=== PATIENT | female | born 2000 | race Caucasian/White ===

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

== ENCOUNTER 2020-02-25 14:53 | Emergency (ER) | payer SELFPAY ==
[2020-02-25 14:53] VITALS: BP 146/66; PULSE 98; RESP 16; TEMP 36.6; O2SAT 99; BMI 22.5
--- NOTE | 2020-02-25 15:21 | ED.DCSUM_ITS ---
- ER Visit Summary Date of Service: 02/25/20 Chief Complaint: Abdominal pain History of Present Illness: The patient is a 20 F who presents with abdominal pain, nausea, and vomiting that is been constant for the past week. Patient states the pain is over the epigastric and bilateral upper quadrants. Patient describes the pain as cramping and stabbing. Patient states the pain is worse with standing and walking. Patient states she did have one episode of emesis that had a small amount of blood in it but this has resolved. Patient denies any diarrhea, melena, or hematochezia. Patient denies any dysuria or hematuria. Patient states her last menstrual period started on 02/12/2020 and was normal. Patient states the pain does radiate into her low back. Patient denies any fevers but admits to subjective chills. Physical Examination: Vital signs are stable. Patient is afebrile. Patient is in no acute distress. Oral mucosa is pink and moist. Neck is supple. Trachea is midline. There is no JVD noted. Heart was regular rate and rhythm. Lungs are clear and equal bilaterally. Abdomen is soft. Bowel sounds are normal. There is mild upper abdominal tenderness. There is no rebound or guarding noted. Skin is warm dry. Cranial nerves II through XII are intact. There are no focal motor or sensory deficits noted. Extremities are intact. There is no calf tenderness or edema. Test Results: CBC, comprehensive metabolic profile, serum hCG, and urinalysis were obtained and were all essentially within normal limits. Emergency Department Course and Treatment: Patient was given IV fluids and Zofran here. Patient is feeling better on reevaluation. Patient was given prescriptions for Zofran and Prilosec. Patient was instructed to follow-up with her primary care physician in 5 to 7 days. Patient understood and was agreeable with the plan. All questions were answered. Disposition: Discharge home Impression: Abdominal pain This note was generated with [employer] dictation software. It may contain incorrect words, spelling, and punctuation that were not noted in review of the chart prior to signing ED Disposition - Plan for ED Patient: Disposition: Home or Assisted Living Diagnosis: Abdominal pain Instructions: ED Abdominal Pain Unkn Cause Fem Prescriptions: Omeprazole [Prilosec] 20 mg PO DAILY #30 cap Prescription Printed Ondansetron [Zofran Odt] 4 mg PO Q8H PRN PRN #10 tab PRN Reason: Nausea Prescription Printed Referrals: Ervin Clarke, DIRECTOR OF AUTOMATION-C [Primary Care Provider] - 5-7 Days
[2020-02-25] MEDS: 0.9% Normal Saline 1,000 ML 1000 ML IV (15:33)
[2020-02-25] MEDS: Ondansetron 4 MG/2 ML Vial IV (15:36)
[2020-02-25 15:43] LABS: Absolute Neutrophil Count 2.5 X10^3/uL (2.0-7.7); Basophil# 0.02 X10^3/uL; Basophil% 0.5 % (0-1); Eosinophil# 0.06 X10^3/uL; Eosinophils% 1.4 % (0-5); Hematocrit 39.1 % (37-47); Hemoglobin 12.6 g/dL (12.0-15.0); Lymphocyte % 31.3 % (19-41); Mean Corp Hgb Conc 32.2 g/dL (32-36); Mean Corpuscular Hgb 29.1 pg (27.0-32.0); Mean Corpuscular Volume 90.3 fL (81-99); Monocyte# 0.24 X10^3/uL; Monocyte% 5.8 % (0-10); NRBC Flagged by Analyzer 0 % (0-5); Neutrophil # 2.52 X10^3/uL (2.7-7.7); Neutrophil % 60.8 % (47-70); Platelet Count 370 K/mm3 (150-450); RBC Distribution Width CV 11.9 % (11.6-14.6); RBC Distribution Width SD 38.7 fl (35.1-43.9); Red Blood Count 4.33 M/mm3 (4.2-5.4); White Blood Count 4.2 K/mm3 (4.4-11.0)
[2020-02-25 16:10] LABS: ALB/GLOB Ratio 1.2 RATIO (0.9-2.4); AST(SGOT) 13 U/L (15-37); Alanine Aminotransfer ALT/SGPT 18 U/L (13-56); Albumin, Serum 4.2 g/dL (3.2-5.0); Alkaline Phosphatase 51 U/L (45-117); Anion Gap 5 (5-15); BUN 7 mg/dL (7-18); BUN/Creat Ratio 8.7 RATIO (10-20); Calcium,Total 9.2 mg/dL (8.5-10.1); Chloride 111 mmol/L (98-107); Creatinine, Serum 0.81 mg/dL (0.55-1.02); EST Glomerular Filtration Rate 95 mL/min (>60); Est Glom Filt Rate - Afr Amer 115 mL/min (>60); Estimated Creatinine Clearance 98.86 ml/min; Globulin 3.4 g/dL (2.2-4.2); Glucose 94 mg/dL (74-106); Lipase 43 U/L (73-393); Potassium 3.9 mmol/L (3.5-5.1); Protein, Total 7.6 g/dL (6.4-8.2); Sodium Level 143 mmol/L (136-145)
[2020-02-25 16:17] LABS: Internal QC Validated? YES +Cl - CLEAR BKGD; Pregnancy, Serum, hCG Quali. NEGATIVE Negative
[2020-02-25 16:24] LABS: Bacteria 0 SEEN /hpf (None Seen); Mucous, Urine 0 SEEN /hpf (<or=2+); Red Blood Cells-Urine 0 SEEN /hpf (0-5)
[2020-02-25 16:31] LABS: Color, Urine Yellow (Yellow); Glucose, Dipstick Normal (Normal); Ketone-Dipstick Negative (Negative); Leukocyte Esterase-Dipstick 500 /ul (Negative); Nitrite-Dipstick Negative (Negative); Occult Blood-Urine Negative /ul (Negative); Protein-Dipstick Negative (Negative); Specific Gravity, Urine 1.015 (1.002-1.030); Urine Bilirubin Dipstick Negative (Negative); Urine Clarity Clear (Clear); Urine Urobilinogen Normal (Normal)
[2020-02-25 16:41] LABS: Squamous Epithelial Cells - UA 0-5 SEEN /hpf (5-10); White Blood Cells 0-5 SEEN /hpf (0-5)
== END 2020-02-25 18:18 | disposition home or self-care (01) ==
PROVIDERS: Emergency Provider Emergency Medicine; PCP Nurse Practitioner Family
DX: R10.10 Upper abdominal pain, unspecified (principal)
CPT/HCPCS: 80053; 81001; 83690; 84703; 85025; 96361; 96374; 99283; J7030; A4216; J2405

== ENCOUNTER 2020-07-06 10:46 | Emergency (ER) | payer SELFPAY ==
[2020-07-06 10:47] VITALS: BP 122/70; PULSE 122; RESP 16; TEMP 36.2; O2SAT 99; BMI 21.6
--- NOTE | 2020-07-06 11:10 | EKG12_ITS ---
Test Reason : Blood Pressure : / mmHG Vent. Rate : 078 BPM Atrial Rate : 078 BPM P-R Int : 196 ms QRS Dur : 088 ms QT Int : 378 ms P-R-T Axes : 020 026 020 degrees QTc Int : 430 ms Normal sinus rhythm Normal ECG Confirmed by MAUREEN CASTILLO, YRIS ([id number]), newspaper or periodical editor MARISSA ANN ([id number]) on 07/08/2020 1:05:30 PM Referred By: Confirmed By:YRIS REDDY MD
--- NOTE | 2020-07-06 11:12 | ED.VIS.GEN ---
History of Present Illness Chief Complaint: Shortness of Breath Informant: Patient Narrative: Patient states that she woke up yesterday morning with nasal congestion and slight sore throat. Last night while lying in bed she states she felt short of breath and was taking small short breaths. She denies any cough. She denies any fever. No diarrhea or rashes. She states that when she woke this morning her left arm and leg were tingling. She was worried she was having a heart attack. Non-smoker. No DVT PE risk factors. She denies any chest pain. Noted triage heart rate of 122 however during my examination on the monitor she is 80s. Past Medical History - Allergies and Home Meds Allergies/Adverse Reactions: Allergies No Known Allergies Allergy (Verified 07/06/20 10:46) Primary Care Physician: Ervin Clarke NP, [employer] TENDER[employer] [Primary Care Provider] - Past Medical History: None Surgical History: noncontributory Smoking Status: Never smoker Drugs: None Review of Systems General: Denies: Chills, Fever, Sweats Eyes: Denies: Visual changes - bilaterally, Diplopia ENT: Reports: Rhinorrhea, Sore throat Cardiovascular: Denies: Chest pain, Palpitations Respiratory: Reports: Dyspnea. Denies: Cough, Dyspnea on exertion Gastrointestinal: Denies: Abdominal pain, Nausea, Vomiting, Diarrhea, Melena, Hematochezia Genitourinary: Denies: Dysuria, Hematuria, Frequency Musculoskeletal: Denies: Back pain, Extremity Pain Skin: Denies: Rash, Wounds Neurological: Reports: Parasthesia. Denies: Headache, Weakness, Numbness Physical Exam Vital Signs/Narrative: Vital Signs Temp Pulse Resp BP Pulse Ox 07/06/20 10:47 97.1 F L 122 H 16 122/70 H 99 Inital Vital Signs reviewed: Yes General: Well nourished, Well developed, No Acute Distress Head: Normocephalic, Atraumatic Eyes: Perrl, EOMI ENT: Moist mucous membranes, No rhinorrhea Neck: Supple, Nontender Cardiovascular: Regular rate, Regular rhythm, No murmurs Respiratory: No distress, CTA bilaterally, Chest nontender, - - Patient is in no acute distress. She takes a small volume breath. Abdomen: Soft, Nontender, Nondistended, Normal bowel sounds Back: Nontender, Normal Inspection Extremities: Nontender, No edema Skin: Normal color, No rash Neurological: Alert, Oriented x3, Cranial nerves II-XII grossly intact, Normal Strength, Normal Sensation Psychological: Normal affect, Normal Mood Diagnostic/Tx/Re-eval Clinical Impression(s) from Imaging Studies Chest X-Ray 07/06/20 11:20 IMPRESSION: The lungs are clear. Electronically Signed: Norbert Rojas, at 11:52 EDT , Service support , Laboratory Last Values WBC 7.9 K/mm3 (4.4-11.0) 07/06/20 11:20 RBC 4.62 M/mm3 (4.2-5.4) 07/06/20 11:20 Hgb 13.8 g/dL (12.0-15.0) 07/06/20 11:20 Hct 41.7 % (37-47) 07/06/20 11:20 MCV 90.3 fL (81-99) 07/06/20 11:20 MCH 29.9 pg (27.0-32.0) 07/06/20 11:20 MCHC 33.1 g/dL (32-36) 07/06/20 11:20 RDW Std Deviation 41.2 fl (35.1-43.9) 07/06/20 11:20 RDW Coeff of Juan 12.5 % (11.6-14.6) 07/06/20 11:20 Plt Count 340 K/mm3 (150-450) 07/06/20 11:20 MPV 9.1 fl (6.2-12.0) 07/06/20 11:20 Immature Gran % (Auto) 0.400 % (0.0-0.9) 07/06/20 11:20 Neut % (Auto) 82.0 % (47-70) H 07/06/20 11:20 Lymph % (Auto) 11.3 % (19-41) L 07/06/20 11:20 Casey % (Auto) 5.7 % (0-10) 07/06/20 11:20 Eos % (Auto) 0.3 % (0-5) 07/06/20 11:20 Baso % (Auto) 0.3 % (0-1) 07/06/20 11:20 Absolute Neuts (auto) 6.5 X10^3/uL (2.0-7.7) 07/06/20 11:20 Absolute Lymphs (auto) 0.89 X10^3/uL (0.83-4.51) 07/06/20 11:20 Nucleated RBC % 0 % (0-5) 07/06/20 11:20 D-Dimer Quant (PE/DVT) 0.28 FEU/ug/m (0.27-0.49) 07/06/20 11:20 Sodium 141 mmol/L (136-145) 07/06/20 11:20 Potassium 4.0 mmol/L (3.5-5.1) 07/06/20 11:20 Chloride 110 mmol/L (98-107) H 07/06/20 11:20 Carbon Dioxide 25.0 mmol/L (21.0-32.0) 07/06/20 11:20 Anion Gap 6 (5-15) 07/06/20 11:20 BUN 7 mg/dL (7-18) 07/06/20 11:20 Creatinine 0.95 mg/dL (0.55-1.02) 07/06/20 11:20 Estim Creat Clear Calc 84.29 ml/min 07/06/20 11:20 Est GFR (MDRD) Af Amer 96 mL/min (>60) 07/06/20 11:20 Est GFR (MDRD) Non-Af 79 mL/min (>60) 07/06/20 11:20 BUN/Creatinine Ratio 7.4 RATIO (10-20) L 07/06/20 11:20 Glucose 95 mg/dL (74-106) 07/06/20 11:20 Calcium 9.4 mg/dL (8.5-10.1) 07/06/20 11:20 Total Bilirubin 0.70 mg/dL (0.20-1.00) 07/06/20 11:20 AST 16 U/L (15-37) 07/06/20 11:20 ALT 18 U/L (13-56) 07/06/20 11:20 Alkaline Phosphatase 57 U/L (45-117) 07/06/20 11:20 Troponin I < 0.015 ng/mL (<0.045) 07/06/20 11:20 Total Protein 7.8 g/dL (6.4-8.2) 07/06/20 11:20 Albumin 4.2 g/dL (3.2-5.0) 07/06/20 11:20 Globulin 3.6 g/dL (2.2-4.2) 07/06/20 11:20 Albumin/Globulin Ratio 1.2 RATIO (0.9-2.4) 07/06/20 11:20 Serum , Qual NEGATIVE Negative 07/06/20 11:20 - EKG Initial EKG Interpretation: Sinus Rhythm - EKG demonstrates a normal sinus rhythm at a rate of 78 without ectopy. - Medical Decision Making Patient's basic blood work is negative. COVID will be pending. At this point her vital signs are stable. She is able to sleep on my repeat examination. I will write for the patient to have an inhaler to see if that will help her. 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 Return if worsening or concerns ED Disposition - Plan for ED Patient: Disposition: Home or Assisted Living Diagnosis: URI (upper respiratory infection), Dyspnea Instructions: ED URI Viral, ED Dyspnea Prescriptions: Albuterol Inhaler [Ventolin Hfa] 2 puff INHALATION Q4H PRN PRN #1 inhaler PRN Reason: Wheezing Prescription Printed Referrals: Ervin Clarke NP, [employer] TENDER[employer] [Primary Care Provider] - 1 Week if not improving
--- NOTE | 2020-07-06 11:20 | RAD_ITS ---
STUDY: X-RAY CHEST REASON FOR EXAM: Female, 20 years old. Shortness of breath TECHNIQUE: Single AP portable view of the chest. COMPARISON: None. FINDINGS: EKG electrodes are seen. The lungs are clear and expanded. There is no demonstrated pleural abnormality. Normal size heart. Normal mediastinum and kranthi. Normal visualized pulmonary arteries. Normal visualized aortic arch and descending thoracic aorta. There is a dextroscoliosis of the thoracic spine. Normal visualized ribs, clavicles, and shoulders. There is no demonstrated abnormality of the visualized soft tissue structures of the upper abdomen. RAD/Chest 1 View (Portable) IMPRESSION: The lungs are clear. Electronically Signed: Norbert Rojas, at 11:52 EDT , Service support ,
[2020-07-06 11:29] LABS: Absolute Lymphocyte Count 0.89 X10^3/uL (0.83-4.51); Absolute Neutrophil Count 6.5 X10^3/uL (2.0-7.7); Basophil# 0.02 X10^3/uL; Basophil% 0.3 % (0-1); Eosinophil# 0.02 X10^3/uL; Eosinophils% 0.3 % (0-5); Hematocrit 41.7 % (37-47); Hemoglobin 13.8 g/dL (12.0-15.0); Lymphocyte # 0.89 X10^3/ul (4.0); Lymphocyte % 11.3 % (19-41); Mean Corp Hgb Conc 33.1 g/dL (32-36); Mean Corpuscular Hgb 29.9 pg (27.0-32.0); Mean Corpuscular Volume 90.3 fL (81-99); Mean Platelet Vol. 9.1 fl (6.2-12.0); Monocyte# 0.45 X10^3/uL; Monocyte% 5.7 % (0-10); NRBC Flagged by Analyzer 0 % (0-5); Neutrophil # 6.45 X10^3/uL (2.7-7.7); Platelet Count 340 K/mm3 (150-450); RBC Distribution Width CV 12.5 % (11.6-14.6); RBC Distribution Width SD 41.2 fl (35.1-43.9); Red Blood Count 4.62 M/mm3 (4.2-5.4); White Blood Count 7.9 K/mm3 (4.4-11.0)
--- NOTE | 2020-07-06 11:34 | NURSING ---
NO OLD EKGS
[2020-07-06 11:41] LABS: Internal QC Validated? YES +Cl - CLEAR BKGD; Pregnancy, Serum, hCG Quali. NEGATIVE Negative
[2020-07-06 11:45] VITALS: BP 103/51; PULSE 71; RESP 16; O2SAT 100
[2020-07-06 11:51] LABS: ALB/GLOB Ratio 1.2 RATIO (0.9-2.4); AST(SGOT) 16 U/L (15-37); Alanine Aminotransfer ALT/SGPT 18 U/L (13-56); Albumin, Serum 4.2 g/dL (3.2-5.0); Alkaline Phosphatase 57 U/L (45-117); Anion Gap 6 (5-15); BUN 7 mg/dL (7-18); BUN/Creat Ratio 7.4 RATIO (10-20); Calcium,Total 9.4 mg/dL (8.5-10.1); Chloride 110 mmol/L (98-107); Creatinine, Serum 0.95 mg/dL (0.55-1.02); EST Glomerular Filtration Rate 79 mL/min (>60); Est Glom Filt Rate - Afr Amer 96 mL/min (>60); Estimated Creatinine Clearance 84.29 ml/min; Globulin 3.6 g/dL (2.2-4.2); Glucose 95 mg/dL (74-106); Protein, Total 7.8 g/dL (6.4-8.2); Sodium Level 141 mmol/L (136-145)
[2020-07-06 12:02] LABS: D-Dimer Quantitative (DVT/PE) 0.28 FEU/ug/m (0.27-0.49)
[2020-07-06 12:42] VITALS: BP 100/71; PULSE 84; RESP 14; O2SAT 98
== END 2020-07-06 13:00 | disposition home or self-care (01) ==
PROVIDERS: Emergency Provider Emergency Medicine; PCP Nurse Practitioner Family
DX: J06.9 Acute upper respiratory infection, unspecified (principal); R06.00 Dyspnea, unspecified
CPT/HCPCS: 71045; 80053; 84484; 84703; 85025; 85379; 87635; 93005; 99284; U0003

== ENCOUNTER 2021-02-03 09:36 | Emergency (ER) | payer OTHER, MEDICAID, SELFPAY ==
[2021-02-03 09:37] VITALS: BP 107/58; PULSE 85; RESP 16; TEMP 36.1; O2SAT 98; BMI 20.6
[2021-02-03] MEDS: Ondansetron 4 MG/2 ML Vial IV (10:04)
[2021-02-03] MEDS: 0.9% Normal Saline 1,000 ML 1000 ML IV (10:04)
[2021-02-03 10:23] LABS: Absolute Lymphocyte Count 1.21 X10^3/uL (0.83-4.51); Absolute Neutrophil Count 4.7 X10^3/uL (2.0-7.7); Basophil# 0.01 X10^3/uL; Basophil% 0.2 % (0-1); Hematocrit 39.5 % (37-47); Hemoglobin 13.4 g/dL (12.0-15.0); Lymphocyte # 1.21 X10^3/ul (0.83-4.51); Lymphocyte % 19.3 % (19-41); Mean Corp Hgb Conc 33.9 g/dL (32-36); Mean Corpuscular Volume 91.4 fL (81-99); Mean Platelet Vol. 9.3 fl (6.2-12.0); Monocyte# 0.32 X10^3/uL; Monocyte% 5.1 % (0-10); NRBC Flagged by Analyzer 0 % (0-5); Neutrophil # 4.72 X10^3/uL (2.7-7.7); Neutrophil % 75.2 % (47-70); Platelet Count 335 K/mm3 (150-450); RBC Distribution Width CV 11.4 % (11.6-14.6); RBC Distribution Width SD 38.4 fl (35.1-43.9); Red Blood Count 4.32 M/mm3 (4.2-5.4); White Blood Count 6.3 K/mm3 (4.4-11.0)
[2021-02-03 10:39] LABS: ALB/GLOB Ratio 1.2 RATIO (0.9-2.4); AST(SGOT) 13 U/L (15-37); Alanine Aminotransfer ALT/SGPT 22 U/L (13-56); Albumin, Serum 4.4 g/dL (3.2-5.0); Alkaline Phosphatase 45 U/L (45-117); Anion Gap 10 (5-15); BUN 16 mg/dL (7-18); BUN/Creat Ratio 18.6 RATIO (10-20); Chloride 103 mmol/L (98-107); Creatinine, Serum 0.86 mg/dL (0.55-1.02); EST Glomerular Filtration Rate 88 mL/min (>60); Est Glom Filt Rate - Afr Amer 106 mL/min (>60); Estimated Creatinine Clearance 91.88 ml/min; Globulin 3.6 g/dL (2.2-4.2); Glucose 76 mg/dL (74-106); Potassium 3.8 mmol/L (3.5-5.1); Sodium Level 135 mmol/L (136-145)
[2021-02-03 10:54] LABS: Red Blood Cells-Urine 0 SEEN /hpf (0-5)
[2021-02-03 10:59] LABS: Color, Urine Yellow (Yellow); Glucose, Dipstick Normal (Normal); Leukocyte Esterase-Dipstick 100 /ul (Negative); Nitrite-Dipstick Negative (Negative); Occult Blood-Urine Negative /ul (Negative); Protein-Dipstick 15 mg/dl (Negative); Specific Gravity, Urine 1.025 (1.002-1.030); Urine Bilirubin Dipstick Negative (Negative); Urine Clarity Sl. Cloudy (Clear); Urine Urobilinogen Normal (Normal)
[2021-02-03 11:01] LABS: Ketone-Dipstick 150 mg/dl (Negative)
[2021-02-03 11:06] LABS: Bacteria 1+ /hpf (None Seen); Mucous, Urine 1+ /hpf (<or=2+); Squamous Epithelial Cells - UA 0-5 SEEN /hpf (5-10); White Blood Cells 10-25 SEEN /hpf (0-5)
[2021-02-03] MEDS: 0.9% Normal Saline 1,000 ML 999 ML IV (11:18)
--- NOTE | 2021-02-03 11:47 | ED.DCSUM_ITS ---
- ER Visit Summary Date of Service: 02/03/21 Chief Complaint: Nausea and vomiting History of Present Illness: The patient is a [address] Keita. She is a G1, P0 at 9 weeks by ultrasound. She reports that she has had problems with nausea intermittently since 5 weeks along. However, its been much worse over the past 2 days. She reports she is vomited 8-9 times. No blood in her emesis. She denies any diarrhea. Her last bowel was 3 days ago. Typically she goes daily. She is not on iron based vitamins. She denies any blood in her stools or black tarry stools. Patient denies any abdominal pain. She reports has had frequent urination for the past 2 days. No dysuria. She denies any vaginal bleeding or discharge. Physical Examination: Vitals: Stable. Afebrile. General: Well-nourished and well-developed. Head: Normocephalic atraumatic. Neck: Supple, no lymphadenopathy. No JVD. Nontender. Cardiovascular: Regular rate and rhythm. No murmurs. Respiratory: No respiratory distress. Clear to auscultation bilaterally. Abdominal: Soft, nontender, nondistended, normal bowel sounds. No guarding, rebound, or peritoneal signs. Gravid uterus. Back: Nontender. Extremities: Nontender, no edema. Skin: Normal color, no rash. Neurologic: Alert and oriented ?3. Cranial nerves II through XII are intact. Normal strength and sensation. Psych: Normal affect. Test Results: CBC is remarkable for segs neutrophils 75. Chem-7 shows a sodium 135. LFTs show an AST of 13. UA shows 10-25 white blood cells with 1+ bacteria. Emergency Department Course and Treatment: Patient had an IV placed. She was given 2 L of normal saline. She was given Zofran IV with significant relief. She has not vomited while here. Her urine was sent for culture and she was given a dose of Rocephin IV. heart tones were 160s. Treatment Plan: Patient be discharged on Keflex and Zofran. Instructed to follow-up with Dr. Keita in 2 days to get the results of her urine culture. Return to the emergency department for any worsening symptoms. Disposition: To home in improved and stable condition. Impression: 1. First trimester . 2. Vomiting. 3. UTI. This note was generated with [employer] dictation software. It may contain incorrect words, spelling, and punctuation that were not noted in review of the chart prio r to signing ED Disposition - Plan for ED Patient: Disposition: Home or Assisted Living Instructions: ED Hyperemesis Gravidarum, ED Urinary Tract Infections in Women Prescriptions: Cephalexin [Keflex] 500 mg PO Q12 #14 capsule Prescription Printed Ondansetron [Zofran Odt] 4 mg PO Q8H PRN PRN #30 tablet PRN Reason: Nausea Prescription Printed Referrals: Dannielle Keita DO [STAFF PHYSICIAN] - 3-5 Days
[2021-02-03] MEDS: Ceftriaxone 1 GM/50 ML BAG IV (12:08)
[2021-02-03 12:09] VITALS: BP 105/59; PULSE 73; RESP 16; O2SAT 100
== END 2021-02-03 12:21 | disposition home or self-care (01) ==
PROVIDERS: Emergency Provider Emergency Medicine; PCP Nurse Practitioner Family
DX: O23.41 Unspecified infection of urinary tract in pregnancy, first trimester (principal); O21.9 Vomiting of pregnancy, unspecified; Z3A.09 9 weeks gestation of pregnancy
CPT/HCPCS: 80053; 81001; 85025; 87086; 87088; 96361; 96374; 99283; J7030; J7050; A4216; J2405

== ENCOUNTER 2021-07-13 10:51 | Emergency (ER) | payer MEDICAID, SELFPAY ==
[2021-07-13 10:52] VITALS: BP 140/90; PULSE 79; RESP 16; TEMP 36.1; O2SAT 98; BMI 26.2
--- NOTE | 2021-07-13 11:12 | CT_ITS ---
STUDY: CT ABDOMEN AND PELVIS WITH CONTRAST REASON FOR EXAM: Female, 21 years old. RLQ abd pain -- IV PO Contrast. The patient is 32 weeks . RADIATION DOSAGE (If Supplied By Facility): CTDIvol = ( 14.70 ) mGy, DLP = ( 796.77 ) mGycm TECHNIQUE: Transaxial images were obtained from the dome of the diaphragm to the symphysis pubis without oral contrast. Oral and IV Gastrografin and 100mL Isovue-370 was administered. Sagittal and coronal images were reconstructed. Individualized dose optimization techniques were used for this CT. COMPARISON: None. FINDINGS: The visualized lung bases are unremarkable. The visualized portions of the heart are within normal limits. Normal liver. Normal gallbladder and extrahepatic biliary system. Normal spleen. Normal pancreas. Normal bilateral adrenal glands. Mild degree of right hydronephrosis and right hydroureter. No obstructive calculus is seen. Normal left kidney. Normal visualized stomach. Normal small intestine. Normal colon. The appendix is visualized and appears normal. Normal abdominal aorta. Normal inferior vena cava. Normal retroperitoneum. Normal urinary bladder. Normal abdominal wall. Normal osseous structures. CT/Abdomen/Pelvis WITH Contrast IMPRESSION: Mild degree of right hydronephrosis and right hydroureter. Electronically Signed: Norbert Rojas MD at 13:26 EDT , Service support ,
--- NOTE | 2021-07-13 11:12 | ED.VIS.GI ---
HPI HPI - GI History of Present Illness Chief Complaint: Abd Pain Detail of Chief Complaint: Abdominal pain that started this morning Informant: patient Abdominal Pain/Flank Pain Current Severity: 4/10 Nausea/Vomiting/Emesis GI Symptom: Positive for Nausea Narrative Narrative: Patient presents with abdominal pain to the right lower quadrant that started this morning when she woke up. Patient states that initially she had pain in her right lower back last evening. She was seen by her PROGRAMMER ANALYST CONSULTANT this morning and the evaluated the baby as she is 32 weeks . Patient also had a dip urine apparently that was unremarkable. Patient denies urinary symptoms. She denies fevers. She has had some nausea. She had decreased p.o. intake and really does not feel hungry. Pain is worse with certain movements. There was concern about appendicitis and her PROGRAMMER ANALYST CONSULTANT referred her to the emergency department to get a scan of her abdomen and pelvis. Prior similar symptoms: No PFSH PFSH Medical History no medical history Home Medications NK 07/13/21 [History Last Taken Unknown] Allergy/AdvReac Type Severity Reaction Status Date / Time oseltamivir [From Tamiflu] Allergy Swelling Verified 02/03/21 09:37 Surgical History no surgical history Social History Smoking Status: Former smoker ROS ROS ED Constitutional Constitutional ED: Reports systems reviewed and no addt'l complaints, except as documented; Denies body ache(s), change in weight or chills Eyes Eyes: Denies acute decrease in peripheral vision, change in vision, double vision or loss of vision ENT ENT ED: Reports none; Denies ear pain, lip swelling, loss taste/smell, neck pain, otalgia or sore throat Cardiovascular Cardiovascular: Reports none; Denies abdominal pain, chest pain with activity, leg edema, lightheadedness, palpitations, rapid heart rate or syncope Respiratory/Chest Respiratory/Chest: Reports none; Denies change in mental status, dry cough, dyspnea, hemoptysis, shortness of breath at rest or shortness of breath with exertion Gastrointestinal Gastrointestinal: Reports none, abdominal pain and nausea; Denies change in stool character, diarrhea, hematemesis, hematochezia, melena, rectal bleeding or vomiting Genitourinary Genitourinary ED: Reports none; Denies abdominal discomfort, anuria, dysuria, genital pain or polyuria Musculoskeletal Musculoskeletal: Reports none; Denies arthralgias, back pain, difficulty walking, extremity pain, muscle weakness or myalgias Integumentary Reports none; Denies abscess or rash Neurologic Neurologic: Reports none; Denies abnormal gait, confusion, focal weakness, frequent falls, headache(s), loss of vision, numbness, paresthesias, radicular pain, vertigo or weakness Psychiatric Psychiatric: Reports systems reviewed and no addt'l complaints, except as documented and none; Denies behavioral changes, confusion, difficulty concentrating, hallucinations, suicidal ideation, tactile hallucinations or visual hallucinations Endocrine Endocrinology: Denies none, cold intolerance, excessive sweating, fatigue or heat intolerance Hematologic/Lymphatic Hematologic/Lymphatic: Reports none; Denies anemia, easy bleeding or easy bruising Allergic/Immunologic Allergic/Immunologic ED: Denies as per HPI, none, lip swelling, mouth swelling, throat swelling, tongue swelling or hives EXAM Physical Exam Const Vital Signs: 07/13/21 10:52 Temperature 96.9 F L Temperature Source Temporal Pulse Rate 79 Respiratory Rate 16 Blood Pressure 140/90 H Blood Pressure Mean 106 Pulse Ox 98 Oxygen Delivery Method Room Air Positive well nourished and well developed General Appearance ED: well developed and NAD HEENT Reports TM's clear and moist mucous membranes normocephalic and atraumatic; Negative for trauma or tenderness Tympanic Membrane ED: Yes TM's clear Eyes PERRL and EOMs intact bilaterally General Eye ED: Negative for pale conjunctiva or scleral icterus Neck no lymphadenopathy, supple and no JVD General: Negative for tenderness Chest Wall inspection of chest normal and palpation of chest normal Chest: Negative for tenderness Resp normal respiratory effort and clear to auscultation bilaterally Effort and Inspection: Negative for respiratory distress or pain with movement Auscultation: Negative for rhonchi, wheezes or diminished lung sounds Cardio regular rate, regular rhythm, S1 normal heart sound, S2 normal heart sound and no murmurs Peripheral Pulses: pulses 2+ throughout GI normal to inspection, nondistended, normoactive bowel sounds, soft to palpation, non-distended and no masses GI Narrative: Patient has a gravid uterus. Patient tender over the right lower quadrant with some guarding. There is no rebound, rigidity, or peritoneal signs. Palpation: soft Back/Spine no CVA tenderness and no thoracic nor lumbar tenderness Extremity normal to inspection General Extremety ED: Negative for edema General Extremity: Negative for edema Neuro oriented x3, CN's II-XII intact bilaterally, no sensory deficits noted and gait normal Sensorium / Orientation: awake, alert, oriented to person, oriented to place and oriented to time Motor Exam: strength 5/5 throughout and strength abnormal Psych mental status grossly normal Skin no rashes or lesions noted and no wounds MDM MDM MDM Narrative Medical decision making narrative: IV line established on arrival. Patient did not want anything for pain. Work-up in the emergency department was unremarkable. CT showed normal appendix and just some mild hydroureter and hydronephrosis which I suspect may be physiologic related to gravid uterus. Case discussed with patient's PROGRAMMER ANALYST CONSULTANT and patient will be discharged to home in stable condition. She is advised to return if worsening pain, fever, vomiting, vaginal bleeding, or condition should worsen anyway. Lab Data Attestation: I reviewed the patient's lab results. Labs: Laboratory Results - last 24 hr 07/13/21 07/13/21 07/13/21 11:25 11:35 11:35 WBC 7.2 RBC 3.53 L Hgb 10.6 L Hct 31.9 L MCV 90.4 MCH 30.0 MCHC 33.2 RDW Std Deviation 38.2 RDW Coeff of Juan 11.7 Plt Count 226 MPV 9.7 Immature Gran % (Auto) 0.600 Neut % (Auto) 71.7 H Lymph % (Auto) 20.6 [place] % (Auto) 6.1 Eos % (Auto) 0.7 Baso % (Auto) 0.3 Absolute Neuts (auto) 5.2 Absolute Lymphs (auto) 1.48 Nucleated RBC % 0 Sodium 140 Potassium 3.8 Chloride 109 H Carbon Dioxide 23.0 Anion Gap 8 BUN 4 L Creatinine 0.48 L Estim Creat Clear Calc 165.43 Est GFR (MDRD) Af Amer 209 Est GFR (MDRD) Non-Af 173 BUN/Creatinine Ratio 8.4 L Glucose 76 Calcium 8.1 L Total Bilirubin 0.30 AST 16 ALT 21 Alkaline Phosphatase 91 Total Protein 6.3 L Albumin 2.5 L Globulin 3.8 Albumin/Globulin Ratio 0.7 L Urine Color Yellow Urine Clarity Sl. Cloudy Urine pH 8.0 Ur Specific Pearl 1.010 Urine Protein Negative Urine Glucose (UA) Normal Urine Ketones Negative Urine Occult Blood Negative Urine Nitrite Negative Urine Bilirubin Negative Urine Urobilinogen Normal Ur Leukocyte Esterase Negative Urine RBC 0 SEEN Urine WBC 0 SEEN Ur Squamous Epith Cells 0-5 SEEN Urine Bacteria 1+ Urine Mucus 0 SEEN Radiography Diagnostic Testing: Radiology Impression Abdomen/Pelvis CT 07/13/21 11:12 IMPRESSION: Mild degree of right hydronephrosis and right hydroureter. Electronically Signed: Norbert Rojas MD at 13:26 EDT , Service support , Discharge Plan Triage Chief Complaint: Abd Pain ED Provider: Marlys Granado Dx/Rx/DC Orders Clinical Impression: Abdominal pain Instructions: ED Abdominal Pain Unkn Cause Fem Prescriptions: No Action NK RF: 0 Primary Care Provider: Ervin Clarke NP Referrals: Brandie Farris MD [STAFF PHYSICIAN] - 3-5 Days Ervin Clarke NP, [facility] [Primary Care Provider] - Disposition Disposition: Home, Self Care
[2021-07-13] MEDS: 0.9% Normal Saline 1,000 ML 125 ML IV (11:32)
[2021-07-13 11:42] LABS: Mucous, Urine 0 SEEN /hpf (<or=2+); Red Blood Cells-Urine 0 SEEN /hpf (0-5); White Blood Cells 0 SEEN /hpf (0-5)
[2021-07-13 11:44] LABS: Absolute Lymphocyte Count 1.48 X10^3/uL (0.83-4.51); Absolute Neutrophil Count 5.2 X10^3/uL (2.0-7.7); Basophil# 0.02 X10^3/uL; Basophil% 0.3 % (0-1); Eosinophil# 0.05 X10^3/uL; Eosinophils% 0.7 % (0-5); Hematocrit 31.9 % (37-47); Hemoglobin 10.6 g/dL (12.0-15.0); Lymphocyte # 1.48 X10^3/ul (0.83-4.51); Lymphocyte % 20.6 % (19-41); Mean Corp Hgb Conc 33.2 g/dL (32-36); Mean Corpuscular Volume 90.4 fL (81-99); Mean Platelet Vol. 9.7 fl (6.2-12.0); Monocyte# 0.44 X10^3/uL; Monocyte% 6.1 % (0-10); NRBC Flagged by Analyzer 0 % (0-5); Neutrophil # 5.17 X10^3/uL (2.7-7.7); Neutrophil % 71.7 % (47-70); Platelet Count 226 K/mm3 (150-450); RBC Distribution Width CV 11.7 % (11.6-14.6); RBC Distribution Width SD 38.2 fl (35.1-43.9); Red Blood Count 3.53 M/mm3 (4.2-5.4); White Blood Count 7.2 K/mm3 (4.4-11.0)
[2021-07-13 11:44] LABS: Color, Urine Yellow (Yellow); Glucose, Dipstick Normal (Normal); Ketone-Dipstick Negative (Negative); Leukocyte Esterase-Dipstick Negative /ul (Negative); Nitrite-Dipstick Negative (Negative); Occult Blood-Urine Negative /ul (Negative); Protein-Dipstick Negative (Negative); Urine Bilirubin Dipstick Negative (Negative); Urine Clarity Sl. Cloudy (Clear); Urine Urobilinogen Normal (Normal)
[2021-07-13 11:51] LABS: Bacteria 1+ /hpf (None Seen); Squamous Epithelial Cells - UA 0-5 SEEN /hpf (5-10)
[2021-07-13] MEDS: Ondansetron 4 MG/2 ML Vial IV (12:00)
[2021-07-13 12:03] LABS: ALB/GLOB Ratio 0.7 RATIO (0.9-2.4); AST(SGOT) 16 U/L (15-37); Alanine Aminotransfer ALT/SGPT 21 U/L (13-56); Albumin, Serum 2.5 g/dL (3.2-5.0); Alkaline Phosphatase 91 U/L (45-117); Anion Gap 8 (5-15); BUN 4 mg/dL (7-18); BUN/Creat Ratio 8.4 RATIO (10-20); Calcium,Total 8.1 mg/dL (8.5-10.1); Chloride 109 mmol/L (98-107); Creatinine, Serum 0.48 mg/dL (0.55-1.02); EST Glomerular Filtration Rate 173 mL/min (>60); Est Glom Filt Rate - Afr Amer 209 mL/min (>60); Estimated Creatinine Clearance 165.43 ml/min; Globulin 3.8 g/dL (2.2-4.2); Glucose 76 mg/dL (74-106); Potassium 3.8 mmol/L (3.5-5.1); Protein, Total 6.3 g/dL (6.4-8.2); Sodium Level 140 mmol/L (136-145)
[2021-07-13 13:50] VITALS: BP 98/63; PULSE 77; RESP 16; TEMP 37.2; O2SAT 99
== END 2021-07-13 13:57 | disposition home or self-care (01) ==
PROVIDERS: Emergency Provider Emergency Medicine; PCP Nurse Practitioner Family
DX: O26.893 Other specified pregnancy related conditions, third trimester (principal); R10.31 Right lower quadrant pain; Z3A.32 32 weeks gestation of pregnancy; Z87.891 Personal history of nicotine dependence
CPT/HCPCS: 74177; 80053; 81001; 85025; 96361; 96374; 99283; J7030; Q9967; A4216; J2405

== ENCOUNTER 2021-09-03 19:30 | Inpatient (IN) | payer MEDICAID, SELFPAY ==
[2021-09-03] VITALS (40 sets, daily range): BP systolic 96–129; BP diastolic 53–86; PULSE 53–106; TEMP 36.1–36.8; O2SAT 90–100; BMI 27.4
[2021-09-03 11:35] LABS: Amphetamine Urine VISTA NEGATIVE (<1000 ng/mL); Barbiturate Urine VISTA NEGATIVE (< 200 ng/mL); Benzodiazepine Urine VISTA NEGATIVE (< 200 ng/mL); Cocaine Urine VISTA NEGATIVE (< 300 ng/mL); Ecstacy Urine VISTA NEGATIVE (< 500 ng/mL); Methadone Urine VISTA NEGATIVE (< 300 ng/mL); PCP Urine VISTA NEGATIVE (< 25 ng/mL); THC Urine VISTA POSITIVE (< 50 ng/mL); Vista UDS pH Range 7
--- NOTE | 2021-09-03 13:24 | OB.TRI.NOTE ---
HPI - General HPI Narrative ARIELA SHIPLEY, is a 21 F at 39.2 weeks gestation who presents with contractions. She started having contractions every 5-10 minutes starting last night. She was unable to sleep due to contractions. Denies any loss of fluid or vaginal bleeding. Positive movement. Maternal Data Information [place] Calculator Estimated Delivery Date Method Current WG Current Estimate 09/08/21 Manual 39w 2d PFSH PFSH Home Medications [id number] [] 1 tab PO DAILY 09/03/21 [History Last Taken Unknown] Allergy/AdvReac Type Severity Reaction Status Date / Time oseltamivir [From Tamiflu] Allergy Swelling Verified 09/03/21 11:04 Social History Smoking Status: Former smoker ROS Eyes Eyes: Denies blurry vision Cardiovascular Cardiovascular: Reports none; Denies chest pain at rest, chest pain with activity or dizziness Respiratory/Chest Respiratory/Chest: Denies cough or dyspnea Gastrointestinal Gastrointestinal: Reports none and other; Denies diarrhea or vomiting Genitourinary Genitourinary: Denies dysuria Musculoskeletal Musculoskeletal: Reports none Integumentary Integumentary: Reports none; Denies rash Neurologic Neurologic: Denies dizziness, headache(s) or other visual disturbances Psychiatric Psychiatric: Reports none Physical Exam Const alert and no apparent distress General Appearance: cooperative Orientation / Consciousness: awake Exam Limitations: no limitations HEENT normocephalic Eyes General Eye: normal appearance of both eyes Neck full ROM Chest inspection of chest normal Resp normal respiratory effort and normal air movement Effort and Inspection: symmetric chest movement Auscultation: clear to auscultation bilaterally Cardio regular rate GI soft to palpation, non-tender and non-distended Inspection: and other Back/Spine normal ROM Extremity full ROM, normal capillary refill and no calf tenderness Skin no rashes or lesions noted Neuro oriented x3 and CN's II-XII intact bilaterally Psych mental status grossly normal NST FHR Rate Baby A Baseline: 130 Variability:: Moderate Accelerations:: 15 x 15 Decelerations:: None NST Reactive:: Yes FHR Category:: Category I Uterine Activity:: Irregular- TOCO reading every 2-6 minutes Assessment & Plan (1) 39 weeks gestation of : (2) Marijuana use: (3) Uterine contractions: PLAN: NST reactive- Cat.1 tracing CE- /-2 slight change from initial exam ./-2 Patient desires physiological labor and declines induction Labor precautions and kick counts reviewed Patient desires discharge home at this time Follow up in office this week or sooner if needed Dr. Kumar notified
[2021-09-03] MEDS: Lactated Ringers 500 ML 999 ML IV ×2 (19:45→21:43)
[2021-09-03 20:07] LABS: Absolute Lymphocyte Count 1.54 X10^3/uL (0.83-4.51); Absolute Neutrophil Count 11.4 X10^3/uL (2.0-7.7); Basophil# 0.02 X10^3/uL; Basophil% 0.1 % (0-1); Eosinophil# 0.01 X10^3/uL; Eosinophils% 0.1 % (0-5); Hematocrit 35.2 % (37-47); Hemoglobin 11.6 g/dL (12.0-15.0); Lymphocyte # 1.54 X10^3/ul (0.83-4.51); Lymphocyte % 11.3 % (19-41); Mean Corpuscular Hgb 28.2 pg (27.0-32.0); Mean Corpuscular Volume 85.6 fL (81-99); Mean Platelet Vol. 10.3 fl (6.2-12.0); Monocyte# 0.63 X10^3/uL; Monocyte% 4.6 % (0-10); NRBC Flagged by Analyzer 0 % (0-5); Neutrophil # 11.35 X10^3/uL (2.7-7.7); Neutrophil % 83.5 % (47-70); Platelet Count 304 K/mm3 (150-450); RBC Distribution Width CV 12.1 % (11.6-14.6); RBC Distribution Width SD 37.8 fl (35.1-43.9); Red Blood Count 4.11 M/mm3 (4.2-5.4); White Blood Count 13.6 K/mm3 (4.4-11.0)
[2021-09-03] MEDS: Lactated Ringers 1,000 ML 200 ML IV (20:16)
--- NOTE | 2021-09-03 20:16 | PCM.HP.OB ---
HPI - General General Date of Admission: 09/03/21 HPI Narrative ARIELA SHIPLEY, is a 21 F at 39.2 weeks gestation who returned to unit after being discharged home earlier from triage for continued contractions. She continued to have contractions that have increased in pain and are more frequent. Denies any loss of fluid or vaginal bleeding. Positive movement. complicated by marijuana use. Maternal Data Information [place] Calculator Estimated Delivery Date Method Current WG Current Estimate 09/08/21 Manual 39w 2d PFSH PFSH Home Medications [id number] [] 1 tab PO DAILY 09/03/21 [History Last Taken Unknown] Allergy/AdvReac Type Severity Reaction Status Date / Time oseltamivir [From Tamiflu] Allergy Swelling Verified 09/03/21 11:04 Surgical History History of surgery Social History Smoking Status: Former smoker History Elective abortions Hx Para 0 Spontaneous abortions Hx # Term Pregnancies Ectopic pregnancies Hx # Pregnancies Multiple births # of living children NST FHR Rate Baby A Baseline: 135 Variability:: Moderate Accelerations:: 15 x 15 Decelerations:: None NST Reactive:: Yes FHR Category:: Category I Uterine Activity:: TOCO reading every 2-3 minutes. Palpate moderate to strong and relaxed in between ROS Eyes Eyes: Denies blurry vision, change in vision or spots in vision ENT HEENT: Denies dizziness or headache(s) Cardiovascular Cardiovascular: Denies abdominal pain, chest pain or dyspnea Respiratory/Chest Respiratory/Chest: Denies cough, dyspnea, shortness of breath at rest or shortness of breath with exertion Gastrointestinal Gastrointestinal: Denies abdominal pain, diarrhea or vomiting Genitourinary Genitourinary: Denies change in urinary stream, difficulty urinating or dysuria Musculoskeletal Musculoskeletal: Reports none Integumentary Integumentary: Denies rash Neurologic Neurologic: Denies dizziness, headache(s), memory loss or weakness Psychiatric Psychiatric: Reports none Vital Signs Vital Signs Vital Signs: 09/03/21 11:03 09/03/21 11:05 09/03/21 19:40 Temperature 97.5 F L Pulse Rate 83 106 H Blood Pressure 96/56 L 114/73 BP Systolic 96 114 BP Diastolic 56 73 Pulse Ox 99 09/03/21 19:41 Temperature 98.2 F Pulse Rate Blood Pressure BP Systolic BP Diastolic Pulse Ox Weight Weight: 165 lb 2.02 oz Body Mass Index (BMI) 27.4 Physical Exam Const alert, oriented x3 and no apparent distress General Appearance: cooperative Orientation / Consciousness: awake Exam Limitations: no limitations HEENT normocephalic Head and Scalp: normal to inspection Eyes General Eye: normal appearance of both eyes Neck full ROM and no lymphadenopathy Lymph Lymphatic: no lymphadenopathy noted Chest inspection of chest normal Resp normal respiratory effort, normal air movement and clear to auscultation bilaterally Effort and Inspection: able to speak in complete sentences and symmetric chest movement Cardio regular rate and regular rhythm GI normal to inspection, nondistended, normoactive bowel sounds Manual OB Exam: dilated 7, effaced 90 and station -1 Back/Spine normal ROM Extremity full ROM and no calf tenderness Skin no rashes or lesions noted General Skin Exam: no breakdown Neuro oriented x3 and CN's II-XII intact bilaterally Psych mental status grossly normal and thought process normal Labs Labs Labs: Blood Type Pending Antibody Screen Pending Hct 35.2 % (37-47) L Hgb 11.6 g/dL (12.0-15.0) L O+ Rubella - non immune HB- neg HC - neg HIV- NR RPR- NR GC/CH- neg GBS - neg Assessment & Plan (1) 39 weeks gestation of : (2) Spontaneous onset of labor: (3) Active labor at term: (4) Marijuana use: (5) Rubella non-immune status, antepartum: PLAN: CE- /-1 bulging bag Admit to labor and delivery Routine labs Start IV fluids and titrate per orders Epidural when indicated GBS neg NST reactive- Cat. 1 tracing Anticipate AROM after epidural/ nitrous oxide and Dr. Kumar notified and is collaborating physician
--- NOTE | 2021-09-03 21:07 | NURSING ---
intermittent auscultation reviewed with pt upon admission. pt requested electronic monitoring
[2021-09-03] MEDS: Ondansetron 4 MG/2 ML Vial IV (21:20)
[2021-09-03] MEDS: fentaNYL-bupivacaine (epidural) 100 ML BAG EPIDURAL (22:03)
[2021-09-03] MEDS: Oxytocin 30 units/NS 500 ml 30 UNITS/500 ML IV.SOLN IV (22:42)
[2021-09-03] MEDS: Oxytocin 30 units/NS 500 ml 30 UNITS/500 ML IV.SOLN 334 UNITS IV (23:52)
[2021-09-04] VITALS (16 sets, daily range): BP systolic 100–114; BP diastolic 55–75; PULSE 71–84; RESP 14–18; TEMP 36.1–37; O2SAT 96–99
--- NOTE | 2021-09-04 00:22 | EX.PCM.OBRPT ---
Assessment & Plan (1) Obstetric vaginal laceration with second degree perineal laceration: (2) (spontaneous vaginal delivery): (3) Rubella non-immune status, antepartum: Maternal Data Information DAY[place] Calculator Estimated Delivery Date Method Current WG Current Estimate 09/08/21 Manual 39w 3d Vaginal Delivery Maternal Presentation Maternal Presentation: Active Labor Maternal Presentation: Arrived in spontaneous, active labor Operative Information Date of Procedure: 09/04/21 Pre-Operative Diagnosis: Term gestation, spontaneous labor Post-Operative Diagnosis: same, live male infant Surgery / Procedure Performed: Spontaneous Vaginal Delivery Type of Anesthesia: Epidural Estimated Blood Loss: 250 Time of Delivery: 23:49 Findings Description of Procedure: Patient feeling pressure. Complete and +2 station upon arrival to room. Patient pushed well with contractions. Delivery of head with maternal effort. CAN x1 loose and easily reduced. Anterior shoulder followed by posterior shoulder and remainder of body delivered spontaneously. Vigorous male placed on maternal abdomen and attended to by nursing staff. Pitocin IV started for active management of the third stage of labor. Cord clamped and cut by FOB after 3 minute delay. Cord blood collected. Placenta delivered spontaneously and intact. Second degree vaginal and perineal laceration repaired in usual fashion with 3-0 Vicryl Rapid. Left labial laceration repaired with 2 small interrupted sutures. Hemostasis obtained. Fundus firm 2 below U. EBL 250 cc APGARS 8/9. and mother bonding well at this time. Dr. Kumar notified of delivery. Presentation: Vertex Amniotic Membrane Rupture Type: Artificial Time of Membrane Rupture: 2048 Amniotic Fluid Description: Clear Placental Delivery Description: Spontaneous Placenta Disposition: [facility] Cord Vessel Description: 3 Vessels Cord Entanglement: Around neck x 1, loose Nuchal Cord Compression: Without compression Infant A Gender: Male (1 minute): 8 (5 minute): 9 Delayed Cord Clamping: Yes Post Vaginal Delivery Medications Given After Delivery: IV Pitocin Episiotomy Description: None Laceration: Vaginal Extension/lac and 2nd degree Complication Complications: None
--- NOTE | 2021-09-04 01:52 | NURSING ---
at delivery was rooting while skin to skin with mother. mother reports she wanted to try to latch to breast. mother questioned if she was able to breastfeed since she was + for THC upon admission and was using marijuana every night to help her sleep. This RN discussed benefits of and discussed continued marijuana use is contraindicated with . mother reports she plans on discontinuing the marijuana use and wanting to try to breastfeed.
[2021-09-04] MEDS: 0.9% Saline Lock 10 ML Syringe IV (02:37)
[2021-09-04] MEDS: Naproxen 500 MG Tablet PO ×3 (03:08→21:14)
[2021-09-04] MEDS: Benzocaine/Lanolin/Aloe Vera 1 SPRAY EACH TOPICAL (03:08)
--- NOTE | 2021-09-04 07:40 | PCM.PN.OB ---
Subjective Subjective Pain well controlled, average lochia. Objective Data Objective Data Vital Signs: Vital Signs Temp Pulse Resp BP Pulse Ox 97.9 F 73 18 102/58 L 96 09/04/21 04:41 09/04/21 04:41 09/04/21 04:41 09/04/21 04:41 09/04/21 02:04 Oxygen Delivery Method Room Air Weight: 74.9 kg Body Mass Index (BMI) 27.4 Intake & Output: Intake and Output for Last 24 Hours 09/02/21 09/03/21 09/04/21 23:59 23:59 23:59 Intake Total 1625.00 / 1625.00 500 / 500 Output Total 1050 / 1050 Balance 1625.00 / 1625.00 -550 / -550 Lab / Micro Data Result Diagrams: 09/03/21 19:45 Labs: Laboratory Results - last 24 hr 09/03/21 11:10: Urine Opiates Screen NEGATIVE, Urine Methadone Screen NEGATIVE, Ur Barbiturates Screen NEGATIVE, Ur Phencyclidine Scrn NEGATIVE, Ur Amphetamines Screen NEGATIVE, U Methamphetamin-MDMA NEGATIVE, U Benzodiazepines Scrn NEGATIVE, Urine Cocaine Screen NEGATIVE, U Cannabinoids Screen POSITIVE H, Ur Drug Screen Comment 09/03/21 19:45: WBC 13.6 H, RBC 4.11 L, Hgb 11.6 L, Hct 35.2 L, MCV 85.6, MCH 28.2, MCHC 33.0, RDW Std Deviation 37.8, RDW Coeff of Juan 12.1, Plt Count 304, MPV 10.3, Immature Gran % (Auto) 0.400, Neut % (Auto) 83.5 H, Lymph % (Auto) 11.3 L, [place] % (Auto) 4.6, Eos % (Auto) 0.1, Baso % (Auto) 0.1, Absolute Neuts (auto) 11.4 H, Absolute Lymphs (auto) 1.54, Nucleated RBC % 0 09/03/21 19:45: Blood Type O POSITIVE, Antibody Screen NEGATIVE Micro: Microbiology 09/03/21 19:50 Nasal Secretion SARS-CoV-2 Antigen (Rapid) - Final Physical Exam Const alert and no apparent distress Narrative: Fundus firm, below umbilicus. Assessment & Plan (1) (spontaneous vaginal delivery): PLAN: PPD #1 doing well routine care and doing well
[2021-09-05] MEDS: Acetaminophen 500 MG Tablet 1000 MG PO (02:38)
[2021-09-05 02:40] VITALS: BP 96/55; PULSE 57; RESP 14; TEMP 36.2
[2021-09-05] MEDS: Naproxen 500 MG Tablet PO (05:58)
[2021-09-05 07:40] VITALS: BP 106/69; PULSE 72; RESP 16; TEMP 36.5; O2SAT 97
--- NOTE | 2021-09-05 08:29 | PCM.PN.OB ---
Subjective Subjective Doing well per patient and nursing staff. Ambulating and taking PO without difficulty. Voiding and passing flatus. Pain controlled. , services for assistance. Denies headache, visual changes, chest pain, shortness of breath, leg pain or increased bleeding. Lochia normal. Objective Data Objective Data Vital Signs: Vital Signs Temp Pulse Resp BP Pulse Ox 97.7 F L 72 16 106/69 97 09/05/21 07:40 09/05/21 07:40 09/05/21 07:40 09/05/21 07:40 09/05/21 07:40 Oxygen Delivery Method Room Air Weight: 165 lb 2.02 oz Body Mass Index (BMI) 27.4 Intake & Output: Intake and Output for Last 24 Hours 09/03/21 09/04/21 09/05/21 23:59 23:59 23:59 Intake Total 1625.00 / 1625.00 500 / 500 Output Total 1850 / 1850 Balance 1625.00 / 1625.00 -1350 / -1350 Lab / Micro Data Result Diagrams: 09/03/21 19:45 Micro: Microbiology 09/03/21 19:50 Nasal Secretion SARS-CoV-2 Antigen (Rapid) - Final ROS Constitutional Constitutional: Reports systems reviewed and no addt'l complaints, except as documented; Denies headache(s) Eyes Eyes: Denies acute decrease in peripheral vision, blurry vision or change in vision ENT HEENT: Reports systems reviewed and no addt'l complaints, except as documented Cardiovascular Cardiovascular: Denies chest pain or dizziness Respiratory/Chest Respiratory/Chest: Denies cough, dyspnea, dyspnea on exertion, shortness of breath at rest or shortness of breath with exertion Gastrointestinal Gastrointestinal: Denies abdominal pain, diarrhea, nausea or vomiting Genitourinary Genitourinary: Reports movement; Denies abdominal discomfort Musculoskeletal Musculoskeletal: Denies limited range of motion Integumentary Integumentary: Reports systems reviewed and no addt'l complaints, except as documented Neurologic Neurologic: Reports systems reviewed and no addt'l complaints, except as documented Psychiatric Psychiatric: Reports systems reviewed and no addt'l complaints, except as documented Endocrine Endocrinology: Reports systems reviewed and no addt'l complaints, except as documented Hematologic/Lymphatic Hematologic/Lymphatic: Reports systems reviewed and no addt'l complaints, except as documented Allergic/Immunologic Allergic/Immunologic: Reports systems reviewed and no addt'l complaints, except as documented Physical Exam Const alert and oriented x3 General Appearance: cooperative Orientation / Consciousness: awake, oriented to person, oriented to place and oriented to time Exam Limitations: no limitations HEENT normocephalic Head and Scalp: normal to inspection, normocephalic and atraumatic Face and Sinus: normal facial exam Eyes General Eye: normal appearance of both eyes Neck full ROM Chest Chest: symmetrical chest wall rise Resp normal respiratory effort and normal air movement Auscultation: clear to auscultation bilaterally Cardio regular rate, regular rhythm, S1 normal heart sound, S2 normal heart sound, no murmurs, no rub, no gallops and no clicks GI normal to inspection, nondistended, normoactive bowel sounds and non-tender GI Narrative: Fundus firm 2 below U appearance of the vagina normal Bladder / Kidney Exam: no CVA tenderness Back/Spine normal ROM Extremity normal to inspection and full ROM Skin no rashes or lesions noted Neuro oriented x3, CN's II-XII intact bilaterally and moves all extremities Sensorium / Orientation: awake, alert and oriented to person Motor Exam: clonus absent Deep Tendon Reflexes: Rt Patellar (L4): 2+ and Lt Patellar (L4): 2+ Assessment & Plan (1) (spontaneous vaginal delivery): (2) Obstetric vaginal laceration with second degree perineal laceration: (3) Rubella non-immune status, antepartum: PLAN: 1) Discharge and instructions 2) Pain management 3) VS stable 4) D/C home 5) Follow up in 2 weeks and 6 weeks PP
--- NOTE | 2021-09-05 08:29 | PCM.DC.SUM ---
Providers Date of Admission: 09/03/21 Primary Care Physician: GUERDA Chapman Reason For Visit: LABOR AND DELIVERY Diagnosis Discharge Diagnosis (1) (spontaneous vaginal delivery): Status: Acute Code(s): O80 - Encounter for full-term uncomplicated delivery Medications at Discharge Home Medications [id number] 1 tab PO DAILY 09/03/21 acetaminophen 1,000 mg PO Q6H PRN PRN #0 tab 09/05/21 benzocaine-menthol [Dermoplast (with menthol)] 1 spray TOPICAL TID PRN PRN #0 g 09/05/21 naproxen 500 mg PO Q8H PRN PRN 7 Days #30 tab 09/05/21 Weight / BMI Weight Weight: 165 lb 2.02 oz Body Mass Index (BMI) 27.4 ABG / Lab / Microbiology Data Result Diagrams: 09/03/21 19:45 Microbiology: Microbiology 09/03/21 19:50 Nasal Secretion SARS-CoV-2 Antigen (Rapid) - Final Meaningful Use Info Meaningful Use Diagnoses (Choose all that apply): None applicable Discharge Plan Admission Admit Date/Time: 09/03/21 19:30 Primary Reason for Your Visit: Attending Provider: Arabella Saldivar Primary Care Provider: Ervin Clarke NP Instructions Patient Instructions: OB Triage: Return to Hospital or Notify Physician if you Experience: Discharge Orders/Prescriptions Prescriptions: New Dermoplast (with menthol) 20-0.5 % Aerosol 1 spray topical TID PRN PRN (Reason: perineal discomfort) Qty: 0 RF: 0 acetaminophen 500 mg Tablet 1,000 mg PO Q6H PRN PRN (Reason: Pain 1-10 Or Fever) Qty: 0 RF: 0 naproxen 500 mg Tablet 500 mg PO Q8H PRN PRN (Reason: Pain Score 1-3) 7 Days Qty: 30 RF: 0 Continued [id number] 1 mg Tablet 1 tab PO DAILY RF: 0 Referrals / Follow Up: Arabella Saldivar CNM [Certified Nurse [employer] [place]] - (2 weeks for virtual visit and 6 weeks in office) Ervin Clarke NP, [employer] [Primary Care Provider] - Disposition Disposition (needs filled in before D/C Order can be placed): Home, Self Care
== END 2021-09-05 11:50 | disposition home or self-care (01) | DRG 560 ==
LOC: WPOUT 19:35 → WP 19:35
PROVIDERS: Admitting Provider Advanced Practice Midwife; PCP Nurse Practitioner Family; Visit Provider Advanced Practice Midwife
DX: O69.81X0 Labor and delivery complicated by cord around neck, without compression, not applicable or unspecified (principal); O70.1 Second degree perineal laceration during delivery; Z3A.39 39 weeks gestation of pregnancy; Z37.0 Single live birth; O99.324 Drug use complicating childbirth; F12.90 Cannabis use, unspecified, uncomplicated
CPT/HCPCS: 59025; 59050; 80307; 85025; 86850; 86900; 86901; 87426; 99218; J7120; A4216; G0378; J2405

== ENCOUNTER 2023-06-30 10:34 | Emergency (ER) | payer MEDICAID, SELFPAY ==
[2023-06-30 10:35] VITALS: BP 130/63; PULSE 66; RESP 14; TEMP 36.3; O2SAT 99; BMI 19.1
--- NOTE | 2023-06-30 11:36 | ED.VIS.DENTA ---
HPI History of Present Illness Chief Complaint: Dental Informant: patient Narrative Narrative: Worsening of right lower dental pain since Saturday. History dental filling that fell out months ago. Pain started Saturday went to urgent care started on amoxicillin. Has a dental appointment this coming Saturday. No fevers or chills hot and cold sensitivities. Has been using Tylenol with no relief. She has a ride here. Has tolerated [place] in the past. PFSH PFSH Home Medications [id number] 1 mg tablet 1 tab PO DAILY 09/03/21 [History Last Taken Unknown] acetaminophen 500 mg tablet 1,000 mg (2 x 500 mg) PO Q6H PRN PRN Pain 1-10 Or Fever #0 tabs 09/05/21 [Rx Last Taken Unknown] benzocaine 20 %-menthol 0.5 % topical aerosol (Dermoplast (with menthol)) 1 spray topical TID PRN PRN perineal discomfort #0 grams 09/05/21 [Rx Last Taken Unknown] naproxen 500 mg tablet 500 mg PO Q8H PRN PRN Pain Score 1-3 7 days #30 tabs 09/05/21 [Rx Last Taken Unknown] hydrocodone-acetaminophen 5-325mg 5mg-325mg 1 tab PO Q6H PRN PRN Pain 3 days #12 TABLETS 06/30/23 [Rx Last Taken Unknown] Allergy/AdvReac Type Severity Reaction Status Date / Time oseltamivir [From Tamiflu] Allergy Swelling Verified 06/30/23 10:34 Surgical History History of surgery Social History Smoking Status: Former smoker ROS ROS ED Constitutional Constitutional ED: Denies chills, fever(s) or sweats Eyes Eyes: Denies change in vision ENT ENT ED: Reports other Details: Dental pain ; Denies dysphagia or sore throat Cardiovascular Cardiovascular: Denies chest pain, leg edema, palpitations or racing heartbeat Respiratory/Chest Respiratory/Chest: Denies cough, dyspnea or dyspnea on exertion Gastrointestinal Gastrointestinal: Denies abdominal pain, diarrhea, nausea or vomiting Genitourinary Genitourinary ED: Denies dysuria, hematuria or urinary frequency Musculoskeletal Musculoskeletal: Denies back pain, extremity pain or neck pain Integumentary Denies rash or wounds Neurologic Neurologic: Denies headache(s), paresthesias or weakness EXAM Physical Exam Const Vital Signs: 06/30/23 10:35 Temperature 97.3 F L Temperature Source Temporal Pulse Rate 66 Respiratory Rate 14 Blood Pressure 130/63 H Blood Pressure Mean 85 Pulse Ox 99 Oxygen Delivery Method Room Air Positive well nourished and well developed General Appearance ED: well developed and NAD HEENT Reports moist mucous membranes HEENT Narrative: Focal neuro dental carry tooth #30, no fluctuance no abscess no sublingual edema. Tender to percussion of the tooth. Airway patent. No swelling. normocephalic and atraumatic Eyes PERRL, EOMs intact bilaterally and conjunctivae normal General Eye ED: Yes normal appearance of both eyes Neck no lymphadenopathy and supple Neck Narrative: No crepitus of the neck General: Negative for tenderness Chest Wall Chest: Negative for tenderness Resp normal respiratory effort and normal air movement Effort and Inspection: symmetric chest movement; Negative for respiratory distress Cardio regular rate, regular rhythm and no murmurs Peripheral Pulses: pulses 2+ throughout GI normal to inspection, nondistended, normoactive bowel sounds and non-tender Palpation: Negative for guarding or rebound tenderness present Back/Spine no CVA tenderness and no thoracic nor lumbar tenderness Extremity normal to inspection General Extremety ED: Negative for edema or tenderness General Extremity: Negative for edema Neuro oriented x3 and no sensory deficits noted Sensorium / Orientation: awake and alert Skin no rashes or lesions noted and no wounds MDM MDM MDM Narrative Medical decision making narrative: Interventions / MDM: Differential diagnosis: Dental caries, dentalgia Diagnosis considered but do not suspect: No clinical abscess My EKG interpretation: N/A Imaging independently reviewed and interpreted by myself: N/A External documents reviewed: N/A Test considered but not ordered:N/A ED course: Vital stable no increasing pain. Focal dental carry with hot and cold sensitivities. Currently on antibiotics for which she is taking. OARRS report was negative. Patient started on [place], she will use NSAIDs at home also. She will keep her appointment this coming Saturday with her dentist for definitive evaluation and treatment plans. All questions were answered. Re-evaluation: stable Disposition discussed with patient/family/significant other: Patient Case discussed with consulting clinician: N/A This note was generated with [employer] software. It may contain incorrect words, spelling, and punctuation that were not noted in checking the note before signing. Discharge Plan Triage Chief Complaint: Dental ED Provider: Andreas Bobo Dx/Rx/DC Orders Clinical Impression: Dental caries, Dentalgia Instructions: ED Dental Cavity Prescriptions: New hydrocodone-acetaminophen [hydrocodone-acetaminophen] 5-325 mg tablet 1 tab PO Q6H PRN PRN (Reason: Pain) 3 Days Qty: 12 0RF No Action [id number] 1 mg Tablet 1 tab PO DAILY Dermoplast (with menthol) 20-0.5 % Aerosol 1 spray topical TID PRN PRN (Reason: perineal discomfort) Qty: 0 0RF Protocol: *Topical Application Instructions APPLICATION INSTRUCTIONS: 1 spray 3 times a day as needed for perineal discomfort acetaminophen 500 mg Tablet 1,000 mg PO Q6H PRN PRN (Reason: Pain 1-10 Or Fever) Qty: 0 0RF naproxen 500 mg Tablet 500 mg PO Q8H PRN PRN (Reason: Pain Score 1-3) 7 Days Qty: 30 0RF Primary Care Provider: Ervin Clarke NP Referrals: Ervin Clarke NP, CAND[facility] BUT[facility]ER-[facility] [Primary Care Provider] - Activity Restrictions/Additional Instructions: Take and finish your antibiotics. May use ibuprofen up to 400 mg every 6 hours. Take [place] as needed. Follow-up with your dentist as scheduled on Saturday for reevaluation and definitive treatment. Disposition Disposition: Home, Self Care Discharge Date/Time: 06/30/23 11:42
[2023-06-30] MEDS: HYDROcodone Bitartrate/Apap 5/325 Tablet PO (11:39)
== END 2023-06-30 11:42 | disposition home or self-care (01) ==
PROVIDERS: Emergency Provider Emergency Medicine; PCP Nurse Practitioner Family; Visit Provider Emergency Medicine
DX: K02.9 Dental caries, unspecified (principal); Z87.891 Personal history of nicotine dependence
CPT/HCPCS: 99283

== ENCOUNTER → 2023-11-08 | Outpatient (CLI) | payer MEDICAID, SELFPAY ==
--- NOTE | 2023-11-08 15:19 | CT_ITS ---
CT LEFT LOWER EXTREMITY WITH 3-D IMAGING CLINICAL INDICATION: PAIN IN L FOOT TECHNIQUE: Axial CT images of the LEFT lower extremity was performed without IV contrast material. Coronal and sagittal reformats were provided. RADIATION DOSAGE (If Supplied By Facility): CTDIvol = ( 15.35 ) mGy, DLP = ( 357.60 ) mGycm COMPARISON: No relevant prior comparison study available FINDINGS: Bones: Osseous structures are normal without evidence of fracture or dislocation. No lytic or blastic osseous masses. Soft Tissues: The deep soft tissue structures are unremarkable. The superficial soft tissues are unremarkable without evidence of edema, hematoma, or foreign body. CT/Extremity Lower without Contra IMPRESSION: Unremarkable study. Electronically Signed: Tanner Ross MD at 16:35 EST Reading Location ID and State: [facility] / [place] Tel , Service support ,
--- OUTSIDE RECORDS SUMMARY | 2023-11-08 15:35 | XMS RPT_ITS | CCD ---
Author Name Unknown Address [address] [place] [address] Organization [facility] Care Team Providers Care Multilith Operator Name Role Phone Unavailable Primary Care Provider KATELIN Beaver Referring Unavailable ARABELLA SHAFFER Attending Unavailable Allergies Allergy Classification Reported Allergen(s) Allergy Type Date of Onset Reaction(s) Facility (10 sources) Oseltamivir; Translations: [OSELTAMIVIR PHOSPHATE] Drug Allergy 03-06-2006 [facility] Medications Current Medications Medication Drug Class(es) Dates Sig (Normalized) Sig (Original) amoxicillin 875 mg oral tablet (1 source) Penicillin-class Antibacterial Start: 06-26-2023 End: 07-06-2023 take 1 tablet by mouth twice daily amoxicillin (AMOXIL) 875 mg tablet Take 1 tablet by mouth twice daily for 10 days. 20 tablet 0 06/26/2023 07/06/2023 Active Completed/Discontinued Medications Medication Drug Class(es) Dates Sig (Normalized) Sig (Original) drospirenone / Ethinyl Estradiol (12 sources) Progestin, Estrogen Start: 03-29-2023 take 1 tablet by mouth once daily Drospirenone-Ethi nyl Estradiol 3-0.03 mg per tablet Take 1 tablet by mouth once daily. 84 tablet 4 03/29/2023 Active Problems Active Problems Problem Classification Problem Date Documented Date Episodic/Chronic Anxiety disorders (2 sources) Anxiety; Translations: [Anxiety disorder, unspecified] Onset: 03-29-2023 Chronic Contraceptive and procreative management (2 sources) Patient encounter status; Translations: [Encounter for initial prescription of contraceptive pills] Episodic Disorders of teeth and jaw (1 source) Toothache; Translations: [Other specified disorders of teeth and supporting structures] 06-26-2023 Episodic Mood disorders (1 source) Depressive disorder; Translations: [Depression, unspecified depression type] Chronic Mood disorders (1 source) Mood disorders; Translations: [Depression, unspecified depression type] Onset: 03-29-2023 Other female genital disorders (2 sources) Vaginal discharge; Translations: [Other specified noninflammatory disorders of vagina] Episodic Other screening for suspected conditions (not mental disorders or infectious disease) (1 source) Cancer cervix screening status; Translations: [Encounter for screening for malignant neoplasm of cervix] Episodic Residual codes; unclassified (1 source) Pain, unspecified; Translations: [Pain] Onset: 10-18-2023 Episodic Viral infection (1 source) Viral disease; Translations: [Viral infection, unspecified] Episodic Past or Other Problems Problem Classification Problem Date Documented Date Episodic/Chronic Cancer of cervix (9 sources) Atypical squamous cells of undetermined significance on cervical Papanicolaou smear; Translations: [Atypical squamous cells of undetermined significance on cytologic smear of cervix (ASC-US)] Onset: 01-19-2021 01-25-2021 Episodic Other complications of (9 sources) Urinary tract infection in ; Translations: [Unspecified infection of urinary tract in , unspecified trimester] Onset: 02-06-2021 02-06-2021 Episodic Other complications of (9 sources) Rubella non-immune; Translations: [Rubella non-immune status, antepartum] Onset: 03-07-2021 03-07-2021 Episodic Other complications of (9 sources) High risk ; Translations: [Supervision of high risk , unspecified, third trimester] Onset: 06-07-2021 06-07-2021 Episodic Other female genital disorders (1 source) Other specified noninflammatory disorders of vagina; Translations: [Vaginal discharge] Onset: 03-29-2023 Episodic Other injuries and conditions due to external causes (9 sources) Finding of urine substance level; Translations: [Elevated urine levels of drugs, medicaments and biological substances] Onset: 01-16-2021 01-16-2021 Episodic Residual codes; unclassified (9 sources) Nicotine-filled electronic cigarette user; Translations: [Tobacco use] Onset: 01-12-2021 01-12-2021 Episodic Residual codes; unclassified (9 sources) Family history of Von Willebrand disease; Translations: [Family history of diseases of the blood and blood-forming organs and certain disorders involving the immune mechanism] Onset: 01-12-2021 01-16-2021 Episodic Substance-related disorders (9 sources) Marijuana user; Translations: [Cannabis use, unspecified, uncomplicated] Onset: 01-12-2021 01-12-2021 Episodic Results Test Name Value Interpretation Reference Range Facil ity Vital Signs Date Time Vital Sign Value Performing Clinician Daniela ruelas 06-26-2023 14:12-0400 Body temperature 99.39 [degF] Genny Athy PA-C Work Phone: [facility] 06-26-2023 14:12-0400 Body weight 55.34 kg Genny Athy PA-C Work Phone: [facility] 06-26-2023 14:12-0400 Diastolic blood pressure 75 mm[Hg] Genny Athy PA-C Work Phone: [facility] 06-26-2023 14:12-0400 Heart rate 102 /min Genny Athy PA-C Work Phone: [facility] 06-26-2023 14:12-0400 Respiratory rate 18 /min Genny Athy PA-C Work Phone: [facility] 06-26-2023 14:12-0400 SaO2% (BldA) [Mass fraction] 98 % Genny Athy PA-C Work Phone: [facility] 06-26-2023 14:12-0400 Systolic blood pressure 109 mm[Hg] Genny Athy PA-C Work Phone: [facility] 03-29-2023 08:11-0400 Body height 164 cm Arabella Plotts ELECTRICAL JOURNEYMAN.CNM Work Phone: [facility] 03-29-2023 08:11-0400 Body weight 53.98 kg Arabella Plotts ELECTRICAL JOURNEYMAN.CNM Work Phone: [facility] 03-29-2023 08:11-0400 Diastolic blood pressure 56 mm[Hg] Arabella Plotts ELECTRICAL JOURNEYMAN.CNM Work Phone: [facility] 03-29-2023 08:11-0400 Systolic blood pressure 92 mm[Hg] Arabella Plotts ELECTRICAL JOURNEYMAN.CNM Work Phone: [facility] 09-23-2022 09:43-0500 Body temperature 98.4 [degF] Melvin Simmsleiqra ELECTRICAL JOURNEYMAN.TOWER SWITCH OPERATOR Work Phone: [facility] 09-23-2022 09:43-0500 Body weight 55.79 kg Melvin Arceiqra ELECTRICAL JOURNEYMAN.TOWER SWITCH OPERATOR Work Phone: [facility] 09-23-2022 09:43-0500 Diastolic blood pressure 60 mm[Hg] Melvin Marie ELECTRICAL JOURNEYMAN.TOWER SWITCH OPERATOR Work Phone: [facility] 09-23-2022 09:43-0500 Heart rate 100 /min Melvin Arceiqra ELECTRICAL JOURNEYMAN.TOWER SWITCH OPERATOR Work Phone: [facility] 09-23-2022 09:43-0500 Respiratory rate 16 /min Melvin Arceiqra ELECTRICAL JOURNEYMAN.TOWER SWITCH OPERATOR Work Phone: [facility] 09-23-2022 09:43-0500 SaO2% (BldA) [Mass fraction] 99 % Melvin Arceiqra ELECTRICAL JOURNEYMAN.TOWER SWITCH OPERATOR Work Phone: [facility] 09-23-2022 09:43-0500 Systolic blood pressure 102 mm[Hg] Melvin Arceiqra ELECTRICAL JOURNEYMAN.TOWER SWITCH OPERATOR Work Phone: [facility] 03-30-2022 11:35-0400 Body weight 55.34 kg Arabella Shaffer ELECTRICAL JOURNEYMAN.CNM Work Phone: [facility] 03-30-2022 11:35-0400 Diastolic blood pressure 70 mm[Hg] Arabella Plotts ELECTRICAL JOURNEYMAN.CNM Work Phone: [facility] 03-30-2022 11:35-0400 Systolic blood pressure 100 mm[Hg] Arabella Plotts ELECTRICAL JOURNEYMAN.CNM Work Phone: [facility] 01-03-2022 11:28-0400 Body weight 59.42 kg Arabella Starkts ELECTRICAL JOURNEYMAN.CNM Work Phone: [facility] 01-03-2022 11:28-0400 Diastolic blood pressure 58 mm[Hg] Arabella Shaffer APRN.ELOISA Work Phone: [facility] 01-03-2022 11:28-0400 Systolic blood pressure 90 mm[Hg] Arabella Shaffer APRN.ELOISA Work Phone: [facility] Encounters Encounter Date Encounter Type Care Provider Facility Start: 10-18-2023 End: 10-18-2023 [facility] Facility:[facility] Start: 06-26-2023 End: 06-26-2023 [facility] Facility:[facility] Start: 06-26-2023 End: 06-26-2023 Patient encounter procedure Genny Barrios PA-C Work Phone: [facility] Procedures Date Procedure Procedure Detail Performing Clinician Start: 11-27-2019 Adult depression screening assessment Arabella Shaffer APRN.CNM Work Phone: Plan of Treatment Date Care Activity Detail Author Start: 07-06-2031 Urine microalbumin profile [facility] Start: 03-30-2025 PAP TESTING PAP TESTING [facility] Start: 01-14-2024 PAP TESTING PAP TESTING [facility] Start: 06-14-2023 Influenza vaccination [facility] Start: 10-14-2022 DEPRESSION ASSESSMENT DEPRESSION ASSESSMENT [facility] Start: 09-23-2022 End: 10-07-2022 Influenza virus A and B RNA and SARS-CoV-2 (COVID-19) N gene panel - Respiratory specimen by LEONEL with probe detection COVID WITH FLUA+B, ROUTINE Microbiology Routine Viral illness Expected: 09/23/2022, Expires: 10/07/2022 [facility] Work Phone: Immunizations Immunization Date Immunization Notes Care Provider Fa cility 07-06-2021 tetanus toxoid, redu angel diphtheria toxoid, and acellular pertussis vaccine, adsorbed Arabella Shaffer APRN.CNM Work Phone: [facility] 06-04-2016 meningococcal polysaccharide (groups A, C, Y and W-135) diphtheria toxoid conjugate vaccine (MCV4P) Arabella Shaffer APRN.CNM Work Phone: [facility] 07-11-2011 varicella virus vaccine Cour chrystal Shaffer ELECTRICAL JOURNEYMAN.CNM Work Phone: [facility] Work Phone: 06-21-2010 Meningococcal, MCV4, unspecified conjugate formulation(groups A, C, Y and W-135) Arabella Starktamara ELECTRICAL JOURNEYMAN.CNM Work Phone: [facility] Work Phone: 06-21-2010 tetanus toxoid, redu angel diphtheria toxoid, and acellular pertussis vaccine, adsorbed Arabella Plotts ELECTRICAL JOURNEYMAN.CNM Work Phone: [facility] Work Phone: 01-12-2004 diphtheria, tetanus toxoids and acellular pertussis vaccine Arabella Plotts ELECTRICAL JOURNEYMAN.CNM Work Phone: [facility] Work Phone: 01-12-2004 measles, mumps and rubella virus vaccine Arabella Starkts ELECTRICAL JOURNEYMAN.CNM Work Phone: [facility] Work Phone: 01-12-2004 poliovirus vaccine, inactivated Arabella Starktamara ELECTRICAL JOURNEYMAN.CNM Work Phone: [facility] Work Phone: 10-18-2000 pneumococcal conjuga te vaccine, 7 valent Arabella Plotts ELECTRICAL JOURNEYMAN.CNM Work Phone: [facility] Work Phone: 08-27-2000 pneumococcal conjuga te vaccine, 7 valent Arabella Starkts ELECTRICAL JOURNEYMAN.CNM Work Phone: [facility] Work Phone: 08-27-2000 varicella virus vaccine Cour chrystal Shaffer ELECTRICAL JOURNEYMAN.CNM Work Phone: [facility] Work Phone: 06-07-2000 diphtheria, tetanus toxoids and acellular pertussis vaccine Arabella Plotts ELECTRICAL JOURNEYMAN.CNM Work Phone: [facility] Work Phone: 06-07-2000 haemophilus influenz ae type b vaccine, HbOC conjugate Arabella Plotts ELECTRICAL JOURNEYMAN.CNM Work Phone: [facility] Work Phone: 03-13-2000 measles, mumps and rubella virus vaccine Arabella Plotts ELECTRICAL JOURNEYMAN.CNM Work Phone: [facility] Work Phone: 03-13-2000 poliovirus vaccine, inactivated Arabella Plotts ELECTRICAL JOURNEYMAN.CNM Work Phone: [facility] Work Phone: 1999 hepatitis B vaccine, pediatric or pediatric/adolescent dosage Arabella Plotts ELECTRICAL JOURNEYMAN.CNM Work Phone: [facility] Work Phone: 1999 diphtheria, tetanus toxoids and acellular pertussis vaccine Arabella Plotts ELECTRICAL JOURNEYMAN.CNM Work Phone: [facility] Work Phone: 1999 haemophilus influenz ae type b vaccine, HbOC conjugate Arabella Plotts ELECTRICAL JOURNEYMAN.CNM Work Phone: [facility] Work Phone: 1999 diphtheria, tetanus toxoids and acellular pertussis vaccine Arabella Plotts ELECTRICAL JOURNEYMAN.CNM Work Phone: [facility] Work Phone: 1999 haemophilus influenz ae type b vaccine, HbOC conjugate Arabella Plotts ELECTRICAL JOURNEYMAN.CNM Work Phone: [facility] Work Phone: 1999 poliovirus vaccine, inactivated Arabella Plotts ELECTRICAL JOURNEYMAN.CNM Work Phone: [facility] Work Phone: 1999 diphtheria, tetanus toxoids and acellular pertussis vaccine Arabella Plotts ELECTRICAL JOURNEYMAN.CNM Work Phone: [facility] Work Phone: 1999 haemophilus influenz ae type b vaccine, HbOC conjugate Arabella Plotts ELECTRICAL JOURNEYMAN.CNM Work Phone: [facility] Work Phone: 1999 poliovirus vaccine, inactivated Arabella Shaffer ELECTRICAL JOURNEYMAN.CNM Work Phone: [facility] Work Phone: 1999 hepatitis B vaccine, pediatric or pediatric/adolescent dosage Arabella Shaffer ELECTRICAL JOURNEYMAN.CNM Work Phone: [facility] Work Phone: 1999 hepatitis B vaccine, pediatric or pediatric/adolescent dosage Arabella Shaffer ELECTRICAL JOURNEYMAN.CNM Work Phone: [facility] Work Phone: Payers Date Payer Category Payer Medicaid [id number] 2021 Medicaid [employer] [id number] 2021-Present [phone] [place] [id number] Medicaid [id number] 2021 Medicaid [id number] Social History Date Type Detail Facility Start: 01-03-2022 End: 09-23-2022 Tobacco smoking status NHIS Ex-smoker [facility] Start: 01-03-2022 End: 09-23-2022 Tobacco use and exposure Smokeless tobacco non-user [facility] Start: 01-03-2022 End: 06-26-2023 Alcohol intake Current non-drinker of alcohol (finding) [facility] Start: 11-27-2019 History SDOH Alcohol Frequency 2 [facility] Start: 11-27-2019 History SDOH Alcohol Std Drinks 1 [facility] Start: 11-27-2019 History SDOH Social Connections Phone 5 [facility] Start: 11-27-2019 History SDOH Social Connections Rastafari 3 [facility] Start: 11-27-2019 History SDOH Social Connections Living 7 [facility] Start: 11-27-2019 Education 15 [facility] Start: 2000 Sex Assigned At Female [facility] History of tobacco use Current smoker [facility] Start: 11-27-2019 End: 03-29-2023 History of Social function [facility] Start: 11-27-2019 End: 03-29-2023 Social connection and isolation panel [facility] Do you belong to any clubs or organizations such as faith groups, unions, fraternal or athletic groups, or school groups? No [facility] Are you now , , , , never or living with a partner? Never [facility] How often to you hav e a drink containing alcohol? Monthly or less [facility] Work Phone: How many standard dr inks containing alcohol do you have on a typical day? 1 or 2 [facility] Work Phone: How often do you hav e 6 or more drinks on 1 occasion? Never [facility] Work Phone: How hard is it for y ou to pay for the very basics like food, housing, medical care, and heating Somewhat hard [facility] Adult Depression Screening Assessment 5 [facility] Do you feel stress - tense, restless, nervous, or anxious, or unable to sleep at night because your mind is troubled all the time - these days [OSQ] To some extent [facility] (I/We) worried wheth er (my/our) food would run out before (I/we) got money to buy more. Often true [facility] The food that (I/we) bought just didn't last, and (I/we) didn't have money to get more. Sometimes true [facility] Start: 02-22-2020 Gender identity Identifies as female gender (finding) [facility] Start: 02-22-2020 Sexual orientation Heterosexual (finding) [facility] Clinical Notes 01-03-2022 to 10-24-2023 Genny Barrios PA-C - 06/26/2023 2:26 PM EDTPatient InstructionsArabella Shaffer APRN.CNM - 03/29/2023 8:10 AM EDTTelephone Encounter - Yulia Morris RN - 11/16/2022 11:02 AM ESTPatient Instructions Note Date & Type Note Facility 10-24-2023 Note HNO ID: [id number] Author: ?, ?, ? Service: ? Author Type: ? Type: Progress Notes Filed: 10/24/2023 15:56 Note Text: POPULATION HEALTH NAVIGATION OUTREACH Action/FYI Left vm Patient Identified by Name and : NO Outreach Outcome/Action Unable to reach patient: Left message MyChart message sent Did you use a PCP flex slot to schedule this appointment? No Reason for Outreach Care Gap or Scheduling/Wellness visits Payer: Payor: [place] MED[place] / Plan: [place] BCBS MEDICAID [facility] / Product Type: Medicaid / Care Gap Reviewed:: Specialty Scheduling Reminder: Reminder note to check Health Maintenance for items below Health Maintenance items due: Covid-19 Vaccine(1) Never done HPV Vaccine(1 - 2-dose series) Never done Meningococcal B Vaccine: Consider Based On Risk(1 of 2 - Patient Seeks Protection) Never done Influenza Vaccine(1) Never done Depression Assessment Never done Navigation Signature: Guadalupe Peck October 24, 2023 3:56 PM [facility] 10-24-2023 Note Patient Outreach (AC CC) ARIELA CRANE ([id number]) 2000 F Date Time Provider Department 10/24/23 PCP (HISTORICAL) [facility] During your visit today, we recorded the following information about you: Guadalupe Peck 10/24/2023 3:56 PM Signed POPULATION HEALTH NAVIGATION OUTREACH Action/FYI Left vm Patient Identified by Name and : NO Outreach Outcome/Action Unable to reach patient: Left message MyChart message sent Did you use a PCP flex slot to schedule this appointment? No Reason for Outreach Care Gap or Scheduling/Wellness visits Payer: Payor: [employer] MEDICAID / Plan: [employer] BCBS MEDICAID [facility] / Product Type: Medicaid / Care Gap Reviewed:: Specialty Scheduling Reminder: Reminder note to check Health Maintenance for items below Health Maintenance items due: Covid-19 Vaccine(1) Never done HPV Vaccine(1 - 2-dose series) Never done Meningococcal B Vaccine: Consider Based On Risk(1 of 2 - Patient Seeks Protection) Never done Influenza Vaccine(1) Never done Depression Assessment Never done Navigation Signature: Guadalupe Peck October 24, 2023 3:56 PM Allergies As of Date: 10/24/2023 Noted Allergy Reaction TAMIFLU (OSELTAMIVIR PHOSPHATE) 03/06/2006 11 - Vomiting Date Reviewed: 10/18/2023 Reviewed by: Deborah Cruz MA - Fully Assessed Prescriptions as of 10/24/2023 - Drospirenone-Ethinyl Estradiol 3-0.03 mg per tablet Take 1 tablet by mouth once daily. - folic acid 0.8 mg cap Take by mouth. Problem List As Of Date 10/24/2023 Noted Resolved Engages in nicotine containing substance vaping*01/12/2021 Marijuana use [F12.90] 01/12/2021 Family history of von Willebrand disease [Z83.2]01/12/2021 Patient request for diagnostic testing [Z01.89] 01/12/2021 Positive urine drug screen [R82.5] 01/16/2021 Atypical squamous cells of undetermined signifi*01/19/2021 UTI (urinary tract infection) in , ant*02/06/2021 Rubella non-immune status, antepartum [O09.899,*03/07/2021 Supervision of high risk in third tri*06/07/2021 Encounter Status:Closed by GUADALUPE PECK on 10/24/23 [facility] 10-18-2023 Note HNO ID: [id number] Author: ROBBIN FREEMAN RT(R) Service: Radiology Author Type: Technologist Type: Progress Notes Filed: 10/18/2023 10:39 Note Text: Radiology Service Progress Note PATIENT NAME: Ariela Crane DATE OF SERVICE: October 18, 2023 TIME: 10:22 AM PATIENT IDENTITY VERIFICATION COMPLETED USING TWO (2) IDENTIFIERS: Name and Date of confirmed by patient verbally. FALL SCREENING: Has the patient had 2 falls in the last year or 1 fall with injury or currently using an Ambulatory Assistive Device (Walker, Cane, Wheelchair, Crutches, etc.)? No PATIENT GENDER DATA: Female. status: : No status: NO. PATIENT RELEVANT IMPLANT DATA REVIEWED: Yes RADIOLOGY DEPARTMENT: General X-ray: Exam(s) Completed: Lower Extremity X-Ray(s): Toes, Left 2nd PERIPHERAL IV DATA: Not applicable SIGNED BY: RT Elvira(R) October 18, 2023 10:22 AM [facility] 10-18-2023 Note HNO ID: [id number] Author: KATELIN SON APRN.TOWER SWITCH OPERATOR Service: ? Author Type: Nurse Practitioner Type: Progress Notes Filed: 10/18/2023 11:14 Note Text: Subjective Patient came up with complaints of pain in the left second toe. Patient says she jumped down off the counter and bent her toes and and heard something crack. Patient says it does hurt to put pressure on it now. Patient not lost any feeling in the toe. Denies any other symptoms. The history is provided by the patient. No foreign language interpreter was used. Review of Systems Constitutional: Negative. Skin: Negative. Objective Physical Exam Constitutional: Appearance: Normal appearance. Pulmonary: Effort: Pulmonary effort is normal. Musculoskeletal: Feet: Feet: Comments: Patient has mild bruising and tenderness in the area marked above. Neurological: Mental Status: She is alert. 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 folic acid 0.8 mg cap Take by mouth. (Patient not taking: Reported on 10/17/2021 ) FAMILY HISTORY Problem Relation Age of Onset other (Other) Mother Von Willebrand disease, thrombocytopenia other (von willebrand) Mother other (thrombocytopenia) Mother GERD Father No Known Problems Maternal Grandmother other ([place]) Maternal Grandfather Thyroid Paternal Grandmother had thyroid removed Diabetes Paternal Grandmother type 2 Thyroid Paternal Grandfather Social History Tobacco Use Smoking status: Former Smokeless tobacco: Never Vaping Use Vaping Use: current everyday user Substances: Nicotine, 2 1/2% Substance Use Topics Alcohol use: No Comment: No alcohol use in home Drug use: Yes Types: Marijuana ASSESSMENT/PLAN: 1. Pain - ICD9: 780.96, ICD10: R52 - XR TOE AP/LAT/OBL LEFT * * * * Physician Interpretation * * * * EXAM TITLE: XR TOE 3V AP/LAT/OBL LT EXAM DATE/TIME: 10/18/2023 10:38 AM COMPARISON: None CLINICAL INDICATION/HISTORY: Injury. TECHNIQUE: AP, lateral and oblique views of the second digit of the left foot are presented. FINDINGS: There appears be a small fragment along the lateral aspect of the base of the second metatarsal bone. The joint spaces are well preserved. The mineralization of the bones is normal. Mild soft tissue swelling is noted. IMPRESSION IMPRESSION: Small bone fragment along the base of the second metatarsal bone, raising concern for avulsion fracture. Please clinically correlate. Rifle Case Repairer: NOMAN Transcribe Date/Time: Oct 18 2023 10:42A Dictated by : MARILEE HOLLAND MD Patient placed in walking boot and will make her own ortho follow up. Katelin Son APRN.[facility] 06-26-2023 Note HNO ID: [id number] Author: Genny Barrios PA-C Service: ? Author Type: Physician Costume Technician Type: Progress Notes Filed: 06/26/2023 2:31 PM Note Text: This note was created using [email or web address]. Subjective Ariela Crane is a 23 year old female. HPI Patient presents with the chief complaint of dental pain over the past 3 days. She has a cavity between her front teeth that started to become painful and she was concerned for infection. She also has a cap that has come off one of her molars on the right lower teeth that is bothering her. She thinks she has had some facial swelling. No fever or chills. She is calling around to establish with a dentist. Review of Systems Constitutional: Negative. HENT: Positive for dental problem. Respiratory: Negative. All other systems reviewed and are negative. 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 84 tablet 4 amoxicillin (AMOXIL) 875 mg tablet Take 1 tablet by mouth twice daily for 10 days. 20 tablet 0 fluconazole (DIFLUCAN) 150 mg tablet Take 1 tablet by mouth once daily for 1 day. 1 tablet 0 folic acid 0.8 mg cap Take by mouth. (Patient not taking: Reported on 10/17/2021 ) No current facility-administered medications for this visit. PAST SURGICAL HISTORY Procedure Laterality Date REMOVE TUMOR, HAND/FINGER 04/04/2016 removal on face and left arm, right side of the face FAMILY HISTORY Problem Relation Age of Onset other (Other) Mother Von Willebrand disease, thrombocytopenia other (von willebrand) Mother other (thrombocytopenia) Mother GERD Father No Known Problems Maternal Grandmother other (Agent Towns) Maternal Grandfather Thyroid Paternal Grandmother had thyroid removed Diabetes Paternal Grandmother type 2 Thyroid Paternal Grandfather Social History Tobacco Use Smoking status: Former Smokeless tobacco: Never Vaping Use Vaping Use: current everyday user Substances: Nicotine, 2 1/2% Substance Use Topics Alcohol use: No Comment: No alcohol use in home Drug use: Yes Types: Marijuana Objective BP 109/75 Pulse 102 Temp 37.4 ?C (99.4 ?F) Resp 18 Wt 55.3 kg (122 lb) LMP 03/02/2023 SpO2 98% BMI 20.58 kg/m? Physical Exam Vitals reviewed. Constitutional: Appearance: Normal appearance. HENT: Head: Normocephalic and atraumatic. Mouth/Throat: Comments: Patient has dental decay between the seventh and eighth tooth with some gumline irritation. Patient also missing large part of tooth #30 in the lower right. No trismus. No overlying facial swelling. Skin: General: Skin is warm and dry. Findings: No rash. Neurological: Mental Status: She is alert. Assessment and Plan ASSESSMENT/PLAN: 1. Pain, dental - ICD9: 525.9, ICD10: K08.89 will treat with amoxicillin, have her follow-up with dentist. Genny Barrios PA-C [facility] 06-26-2023 History of Presen t illness Narrative Images from the original note were not included. This note was created using [employer]ter. Subjective Ariela Crane is a 23 year old female. HPI Patient presents with the chief complaint of dental pain over the past 3 days. She has a cavity between her front teeth that started to become painful and she was concerned for infection. She also has a cap that has come off one of her molars on the right lower teeth that is bothering her. She thinks she has had some facial swelling. No fever or chills. She is calling around to establish with a dentist. Review of Systems Constitutional: Negative. HENT: Positive for dental problem. Respiratory: Negative. All other systems reviewed and are negative. 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 84 tablet 4 amoxicillin (AMOXIL) 875 mg tablet Take 1 tablet by mouth twice daily for 10 days. 20 tablet 0 fluconazole (DIFLUCAN) 150 mg tablet Take 1 tablet by mouth once daily for 1 day. 1 tablet 0 folic acid 0.8 mg cap Take by mouth. (Patient not taking: Reported on 10/17/2021 ) No current facility-administered medications for this visit. PAST SURGICAL HISTORY Procedure Laterality Date REMOVE TUMOR, HAND/FINGER 04/04/2016 removal on face and left arm, right side of the face FAMILY HISTORY Problem Relation Age of Onset other (Other) Mother Von Willebrand disease, thrombocytopenia other (von willebrand) Mother other (thrombocytopenia) Mother GERD Father No Known Problems Maternal Grandmother other (Agent [place]s) Maternal Grandfather Thyroid Paternal Grandmother had thyroid removed Diabetes Paternal Grandmother type 2 Thyroid Paternal Grandfather Social History Tobacco Use Smoking status: Former Smokeless tobacco: Never Vaping Use Vaping Use: current everyday user Substances: Nicotine, 2 1/2% Substance Use Topics Alcohol use: No Comment: No alcohol use in home Drug use: Yes Types: Marijuana Objective BP 109/75 Pulse 102 Temp 37.4 C (99.4 F) Resp 18 Wt 55.3 kg (122 lb) LMP 03/02/2023 SpO2 98% BMI 20.58 kg/m Physical Exam Vitals reviewed. Constitutional: Appearance: Normal appearance. HENT: Head: Normocephalic and atraumatic. Mouth/Throat: Comments: Patient has dental decay between the seventh and eighth tooth with some gumline irritation. Patient also missing large part of tooth #30 in the lower right. No trismus. No overlying facial swelling. Skin: General: Skin is warm and dry. Findings: No rash. Neurological: Mental Status: She is alert. Assessment and Plan ASSESSMENT/PLAN: 1. Pain, dental - ICD9: 525.9, ICD10: K08.89 will treat with amoxicillin, have her follow-up with dentist. Genny Barrios PA-C documented in this encounter [facility] 03-29-2023 Note HNO ID: [id number] Author: Arabella Shaffer APRN.CNM Service: ? Author Type: Spaghetti Machine Operator Type: Progress Notes Filed: 03/29/2023 9:04 AM Note Text: Boat Fueler offered: Patient declines. Jessica is a 23 year old who presents for an annual gynecologic exam without complaints. Menses: cycles every 22-23 days and 5 days of flow. Contraception: combined hormonal contraceptives HPV vaccine: Yes Last Pap: 04/09/2022 normal HPV: 01/23/2021 negative History of abnormal pap: Yes Last mammogram: never Sexually active: Yes History of STDS: None Pain with intercourse: No Postcoital bleeding: No Diet: Regular Seatbelt use: Yes OB History T1 L1 SAB0 IAB0 Ectopic0 Multiple0 Live Births1 Platform Architect History LMP: 03/02/2023, Having periods Age at Menarche: Age at First : Age at Menopause: Platform Architect History Comments: Sexual Activity: Yes; Male Contraception: Condom PAST MEDICAL HISTORY Diagnosis Date Atypical squamous cells of undetermined significance (ASCUS) on Papanicolaou smear of cervix 01/19/2021 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 PMH - PAST MEDICAL HISTORY OF 06/21/10 normal color vision PAST SURGICAL HISTORY Procedure Laterality Date REMOVE TUMOR, HAND/FINGER 04/04/2016 removal on face and left arm, right side of the face FAMILY HISTORY Problem Relation Age of Onset other (Other) Mother Von Willebrand disease, thrombocytopenia other (von willebrand) Mother other (thrombocytopenia) Mother GERD Father No Known Problems Maternal Grandmother other (Agent Towns) Maternal Grandfather Thyroid Paternal Grandmother had thyroid removed Diabetes Paternal Grandmother type 2 Thyroid Paternal Grandfather SOCIAL HISTORY Social History Tobacco Use Smoking status: Former Smokeless tobacco: Never Vaping Use Vaping Use: current everyday user Substances: Nicotine, 2 1/2% Substance Use Topics Alcohol use: No Comment: No alcohol use in home Drug use: Yes Types: Marijuana REVIEW OF SYSTEMS Abdomen: No abdominal pain, nausea, vomiting, diarrhea, or constipation. No bloating, early satiety, indigestion, or increased flatulence. Bladder: No dysuria, gross hematuria, urinary frequency, urinary urgency, or incontinence. Breast: No breast lumps, nipple d/c, overlying skin changes, redness or skin retraction. Allergies and current medication updated:Yes EXAM: BP 92/56 Ht 5' 4.567 (1.64m) Wt 119 lb (54.0kg) LMP 03/02/2023 BMI 20.07 kg/(m2). GENERAL: pleasant, female in no apparent distress HEENT: Normocephalic, atraumatic, mucus membranes moist, and no lesions NECK: Supple and full range of motion DERMATOLOGY: Normal and without lesions BREAST: soft, non-tender, symmetric, no dominant mass, normal nipple-areolar complex, no lymphadenopathy, and no nipple discharge CHEST: Normal inspiratory effort ABDOMEN: soft, non-tender, and no masses PELVIC: external genitalia normal, normal Bartholin's glands, urethra, [place]'s glands, no vulvar lesions, no cervical lesions, good vaginal support, physiologic discharge present, normal appearing perineal body and perianal region BIMANUAL: uterus normal size, shape and consistency, no adnexal masses, non-tender, and no cervical motion tenderness RECTOVAGINAL: deferred. NEURO: alert and oriented x3,exam grossly non-focal EXTREMITIES: normal ASSESSMENT/PLAN: 1) Health maintenance: Pap/HPV up to date. 2) Contraception: combined hormonal contraceptives. Contraceptive options reviewed and information provided. R/B/A to OCP reviewed with patient including to report any s/s ACHES . Briefly discussed Mirlizy but she likes to have period so she knows she is not . Consult to Women's behavioral health- counseling and/or medication? 3) STD screening: Declined STD check. 4) Follow up one year or sooner as needed BACT/YEAST- collected and sent due to increased vaginal discharge Arabella Shaffer APRN.CNM [facility] 03-29-2023 Instructions Arabella Shaffer APRN.CNM - 03/29/2023 8:42 AM EDT Here are some links for wonderful Providers here in the community and surrounding areas. Do not hesitate to contact their offices, many are offering virtual visits during this time. 2-329-4-PNTC2NDNZ - [facility] Mental Health Hotline If you are in suicidal crisis, please call or text 2-507-138-TALK ( ) or visit the National Suicide Prevention Lifeline website. mchb.[facility].gov [facility] Behavioral Health Psychology, Psychiatry, Counseling Connect with therapist/ can do virtual visits [phone] Referral to the [facility] for Women's Behavioral Health To schedule an appointment, please call the Center for Behavioral Health Appointment Line: [phone] option 1 Counseling [facility] - [place], [place] [address], [facility] [address] [place] [address] [facility] [address] [place] [id number] [facility] [address] [place] [address] Angel Hudson MD [address] [place] [address] [facility] [address], [address] [place] [address] [facility] [address] [place] [address] [facility] Services [place] / [place] [phone]/ [phone] Ingrid Sharif [address] [facility] [phone] [facility] Mediation [place] / [place] [phone] [facility] [address] [place] [address]/ [place] and [place] [phone] Chaitanya Otoole, AGUILA, CLC [facility] Workshops, telehealth and at home visits. [phone] [facility] [place] 20 locations [place], [place], [place], [place], [place], [place], [place], [facility], [place], [place], [place], [place], [place], [place], [facility], [place], [place] ,[facility], [place], [place],[facility], [facility], [place], [facility], [facility], [place] www.[facility] [phone] Psychotherapy resources outside of [facility] are listed below [facility] [employer] Psychotherapy Web: https://www.QuVIS/ Support International Online Provider Directory https://PANOSOL/ [facility] https://NTS, Inc./ Partners for Behavioral Health and Wellness Web: https://LoanHero/ eTimesheets.com for Effective Living Web: https://www.AltaRock Energyliving.RealtimeBoard / LifeStance Web: https://Vision Chain Inc.RealtimeBoard/location/ [facility]/[place]/ [facility] Web: https://www.iexerci.sehealthinc.o / [facility] Web: https://The Parkmead Group.org/ Recovery Resources Mental health and substance abuse help Web: https://www.BlogRadio.org & RESOURCES Support International Direct peer support and connection to professional resources Non-Emergency Helpline Phone: / Text: [phone] Web: https://www..net/ Online Provider Directory: https://Digital Fuel.RealtimeBoard/ Online Support Meetings: https://www..net/get-h elp/kxv-prascv-zmwplhh-meetings/ EDIS Baby and Women Designer Services Web: https://Emprivo/ Viibar Expert information on medication use during and Text: [phone] Web: https://National Transcript Center/ NATIONAL REGISTRY FOR PSYCHIATRIC MEDICATIONS Currently studying the safety of antidepressants, ADHD medications and atypical antipsychotics taken during TO PARTICIPATE CALL TOLL-FREE: Web: https://womens[facility] health.org/r esearch/pregnancyregistry/ Support Groups: [facility]- Follow on facebook Baby Bistro support group led by [facility] department [facility] - Support Group [facility].org The POEM support group [phone] Www.poSPR Therapeuticsonline.org Follow on facebook - POCASIE chunnesbitt chapter Online support meetings PSI https://www..net/get-h elp/cgy-cdrrel-mhauvbj-meetings/ [facility] mommy and me virtual support group 11:30-1pm Support for mothers and new babies and toddlers Lacey childbirth education: Childbirth @[facility].org or call [phone] CRISIS: CRISIS HOTLINE [phone], 911 or go to the nearest [facility] [phone] / [facility] [phone] https://www.[facility] centerrb.org Crisis text line text the word HOME to 286[address] [facility] [address] [place] [address] [facility] [address] www.CodeStreet Angely Cramer clinical counseling [address] [address] www.Surefire Social [phone] Holding space psychotherapy Emma LATHAM ARBORIST REPRESENTATIVE-S [address] [facility] www.hopTo [phone]/ True [phone] They all offer virtual. All work with trauma Support groups Online support meetings PSI https://www..net/get-h elp/fut-kutsxc-znugbno-meetings/ Here are the support groups they offer: Support of parents of 1 to 4 years old children POEM ( Outreach and Encouragement for Moms) offers free support for mothers experiencing depression, anxiety, and other mood and anxiety disorders. Masks are recommended but not required. No pre-registration required. Babies in arms welcome. meetings now take place on the and Saturday of each month Location: [facility] [address] [place] [address] Room 122 (library room) 7-8:00 p.m. When you enter the faith parking lot off of [address] the entrance door closest to our meeting room is on the front of the building toward the right. For those who are more comfortable with a virtual platform, POEM offers online support group options several days of the week. To register for an online group or to find out more about POEM, website at: https://aohio.org/get-help/[facility] hospitalzheut-ivhkaz-rtihvh/poem-service s/ offer a confidential helpline: private First [employer] group is called POCASIE [facility] CenterNesbittsusi Morris Here are the groups they offer: Traumatic childbirth resources: Http://pattch.org/ https://www.rehanaTrendPo.RealtimeBoard/ documented in this encounter [facility] 03-29-2023 History of Presen t illness Narrative Boat Fueler offered: Patient declines. Jessica is a 23 year old who presents for an annual gynecologic exam without complaints. Menses: cycles every 22-23 days and 5 days of flow. Contraception: combined hormonal contraceptives HPV vaccine: Yes Last Pap: 04/09/2022 normal HPV: 01/23/2021 negative History of abnormal pap: Yes Last mammogram: never Sexually active: Yes History of STDS: None Pain with intercourse: No Postcoital bleeding: No Diet: Regular Seatbelt use: Yes OB History T1 L1 SAB0 IAB0 Ectopic0 Multiple0 Live Births1 Platform Architect History LMP: 03/02/2023, Having periods Age at Menarche: Age at First : Age at Menopause: Platform Architect History Comments: Sexual Activity: Yes; Male Contraception: Condom PAST MEDICAL HISTORY Diagnosis Date Atypical squamous cells of undetermined significance (ASCUS) on Papanicolaou smear of cervix 01/19/2021 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 PMH - PAST MEDICAL HISTORY OF 06/21/10 normal color vision PAST SURGICAL HISTORY Procedure Laterality Date REMOVE TUMOR, HAND/FINGER 04/04/2016 removal on face and left arm, right side of the face FAMILY HISTORY Problem Relation Age of Onset other (Other) Mother Von Willebrand disease, thrombocytopenia other (von willebrand) Mother other (thrombocytopenia) Mother GERD Father No Known Problems Maternal Grandmother other (Agent [place]s) Maternal Grandfather Thyroid Paternal Grandmother had thyroid removed Diabetes Paternal Grandmother type 2 Thyroid Paternal Grandfather SOCIAL HISTORY Social History Tobacco Use Smoking status: Former Smokeless tobacco: Never Vaping Use Vaping Use: current everyday user Substances: Nicotine, 2 1/2% Substance Use Topics Alcohol use: No Comment: No alcohol use in home Drug use: Yes Types: Marijuana REVIEW OF SYSTEMS Abdomen: No abdominal pain, nausea, vomiting, diarrhea, or constipation. No bloating, early satiety, indigestion, or increased flatulence. Bladder: No dysuria, gross hematuria, urinary frequency, urinary urgency, or incontinence. Breast: No breast lumps, nipple d/c, overlying skin changes, redness or skin retraction. Allergies and current medication updated:Yes EXAM: BP 92/56 Ht 5' 4.567 (1.64m) Wt 119 lb (54.0kg) LMP 03/02/2023 BMI 20.07 kg/(m^2). GENERAL: pleasant, female in no apparent distress HEENT: Normocephalic, atraumatic, mucus membranes moist, and no lesions NECK: Supple and full range of motion DERMATOLOGY: Normal and without lesions BREAST: soft, non-tender, symmetric, no dominant mass, normal nipple-areolar complex, no lymphadenopathy, and no nipple discharge CHEST: Normal inspiratory effort ABDOMEN: soft, non-tender, and no masses PELVIC: external genitalia normal, normal Bartholin's glands, urethra, [place]'s glands, no vulvar lesions, no cervical lesions, good vaginal support, physiologic discharge present, normal appearing perineal body and perianal region BIMANUAL: uterus normal size, shape and consistency, no adnexal masses, non-tender, and no cervical motion tenderness RECTOVAGINAL: deferred. NEURO: alert and oriented x3,exam grossly non-focal EXTREMITIES: normal ASSESSMENT/PLAN: 1) Health maintenance: Pap/HPV up to date. 2) Contraception: combined hormonal contraceptives. Contraceptive options reviewed and information provided. R/B/A to OCP reviewed with patient including to report any s/s ACHES . Briefly discussed Mirena but she likes to have period so she knows she is not . Consult to Women's behavioral health- counseling and/or medication? 3) STD screening: Declined STD check. 4) Follow up one year or sooner as needed BACT/YEAST- collected and sent due to increased vaginal discharge Arabelal Shaffer APRN.CNM documented in this encounter [facility] 03-02-2023 Note HNO ID: [id number] Author: TORIE Miller Service: ? Author Type: Physician Costume Technician Type: Progress Notes Filed: 03/02/2023 8:31 AM Note Text: This note was created using NoteWriter. Subjective Ariela Crane is a 23 year old female. HPI 23-year-old female presents for sore throat. Patient states she started getting a sore throat yesterday. She has a white spot in the back of her throat. No fevers. No vomiting or diarrhea. No cough. She has had a little bit of a runny nose as well. No other complaints. 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 (Patient not taking: Reported on 10/17/2021 ) FAMILY HISTORY Problem Relation Age of Onset other (Other) Mother Von Willebrand disease, thrombocytopenia other (von willebrand) Mother other (thrombocytopenia) Mother GERD Father No Known Problems Maternal Grandmother other (Agent Towns) Maternal Grandfather Thyroid Paternal Grandmother had thyroid removed Diabetes Paternal Grandmother type 2 Thyroid Paternal Grandfather Social History Tobacco Use Smoking status: Former Smokeless tobacco: Never Vaping Use Vaping Use: current everyday user Substances: Nicotine, 2 1/2% Substance Use Topics Alcohol use: No Comment: No alcohol use in home Drug use: Yes Types: Marijuana Review of Systems Constitutional: Negative for chills and fever. HENT: Positive for sore throat. Negative for congestion and ear pain. Respiratory: Negative for cough and shortness of breath. Cardiovascular: Negative for chest pain. Gastrointestinal: Negative for diarrhea and vomiting. Objective BP 94/62 Pulse 102 Temp 36.6 ?C (97.9 ?F) Resp 18 Wt 55.3 kg (122 lb) LMP 03/16/2022 SpO2 98% BMI 20.30 kg/m? Physical Exam Vitals and nursing note reviewed. Constitutional: General: She is not in acute distress. Appearance: Normal appearance. She is not toxic-appearing. HENT: Right Ear: Tympanic membrane and ear canal normal. Left Ear: Tympanic membrane and ear canal normal. Nose: Nose normal. Mouth/Throat: Mouth: Mucous membranes are moist. Oral lesions present. Dentition: No gingival swelling, dental caries or dental abscesses. Pharynx: Uvula midline. No oropharyngeal exudate or posterior oropharyngeal erythema. Tonsils: No tonsillar exudate or tonsillar abscesses. Comments: Patient has aphthous ulcer over the left posterior throat. No tonsillar exudates or tonsillar swelling. Uvula midline. No abscess. Handling secretions. Eyes: Conjunctiva/sclera: Conjunctivae normal. Cardiovascular: Rate and Rhythm: Normal rate and regular rhythm. Pulmonary: Effort: Pulmonary effort is normal. Breath sounds: Normal breath sounds. Neurological: Mental Status: She is alert. Assessment and Plan ASSESSMENT/PLAN: 1. Sore throat - ICD9: 462, ICD10: J02.9 (primary diagnosis) - suspect viral -Strep test negative - Discussed supportive care treatment with fluids, rest and analgesia. - STREP A MOLECULAR (POC) 2. Aphthous ulcer - ICD9: 528.2, ICD10: K12.0 -Recommend warm salt gargles, throat lozenges, Tylenol/Motrin. Diagnosis and treatment plan were discussed and questions were answered to the patient's satisfaction. Pt acknowledged understanding of concepts and follow up plan. Specific signs and symptoms that would indicate the need for higher level of care were discussed in detail warranting prompt ER evaluation. TORIE Miller [facility] 11-16-2022 Miscellaneous Notes Last annual with CP 03/30/22. Needs refill today. Requested Prescriptions Pending Prescriptions Disp Refills Drospirenone-Ethinyl Estradiol 3-0.03 mg per tablet [Pharmacy Med Name: DROSPIRENONE-EE 3-0.03 MG TAB] 28 tablet 5 Sig: TAKE 1 TABLET BY MOUTH EVERY DAY RX INSTRUCTIONS: Patient aware RX will be sent to pharmacy. No need to notify patient. Yulia Morris RN documented in this encounter [facility] 09-23-2022 Instructions Melvin Marie APRN.TOWER SWITCH OPERATOR - 09/23/2022 10:03 AM EST How to Manage Common Symptoms Associated with COVID for Adults Fever- Fever is a temperature over 100.4 F and can occur when the body is fighting an infection. To help treat a fever: Drink plenty of fluids and stay well hydrated. Eat small amounts of easy to digest food. Rest. Your body needs rest to recover, but getting up and moving around the house frequently is a good idea. You should try to continue doing your normal daily activities (bathing, toileting, grooming, cooking), though you will probably feel tired, and need to rest often. Avoid any heavy activity or exercise, as this will increase your body temperature. Dress in light clothing and stay covered in a light sheet. Keep the room temperature cool. Take a slightly warm (not cold or cool) bath, or apply damp washcloths to the forehead and wrists. Cough- Cough is a common symptom associated with COVID and can be bothersome. To help treat a cough: Stay well hydrated. Try warm water or tea with lemon and/or honey to help soothe the cough. Use a humidifier to add moisture to the air. Try a product with menthol, like a cough drop or a rub for your chest such as Vicks, which can help reduce cough. Try cough drops. Avoid smoking and other strong odors or perfumes. Try breathing exercises to keep your lungs open and clear. Take a big deep breath through your nose and hold for 5 seconds before slowly releasing. Repeat frequently, while you are awake. Congestion- Runny nose or nasal congestion can occur with COVID. Treatment can help relieve symptoms: Try OTC nasal saline spray, or nasal saline rinse to relieve mucus congestion. Nasal strips can help keep nasal passages open, to increase airflow. Elevating your head with an extra pillow in bed can help reduce congestion. Using a humidifier can increase moisture in the air, and make breathing easier. Sore Throat- Another common symptom with COVID, can be managed at home by: Stay well hydrated. Gargle with salt water - mix teaspoon salt with 1 cup of warm water and gargle. This helps to loosen mucus in the back of the throat and may reduce discomfort. Try ice chips, popsicles or lozenges to soothe the throat. Nausea/Vomiting/Diarrhea- These are common symptoms, and staying hydrated is most important. If you are nauseous or vomiting, start with small sips of water every 10-15 minutes and increase as tolerated. You can try sucking an ice cube too. If tolerating, you can try pedialyte or Gatorade, or flat sprite or meghan-aury. Start slowly and increase as you are able to. Instead of meals, try smaller, more frequent snacks. Try eating bland foods like crackers, toast, rice, and applesauce. Avoid spicy, greasy or fried foods and dairy containing foods. Even if you aren't feeling hungry due to lack of smell or taste, it is important to try to take in some food when you are able. After drinking and eating, rest in an upright position for up to two hours as needed to help decrease nauseous feelings. Try closing your eyes, avoid moving and watching TV. Avoid strong odors that can make you feel more nauseated. When to seek emergency medical attention Look for emergency warning signs for COVID-19. If having any of these symptoms, seek emergency medical care immediately: Trouble breathing Persistent pain or pressure in the chest New confusion Inability to wake or stay awake Bluish lips or face *This list is not all possible symptoms. Please call your medical provider for any other symptoms that are severe or concerning to you. documented in this encounter [facility] 09-23-2022 History of Presen t illness Narrative Subjective HPI Nontoxic-appearing female presents to urgent care with chief complaint of upper respiratory tract like infection. Duration of symptoms 4 days. Associated symptoms sore throat, nasal congestion, nasal discharge and nonproductive cough. Patient denies the use of any [id number] medications or home remedies for symptom management. Patient states recent sick contacts with similar signs and symptoms. Patient denies any productive cough, fever, chest pain, shortness of breath, pleuritic pain, rash, abdominal pain, nausea, vomiting or change in bowel or bladder habit. Denies chance of . Is no longer breast-feeding. Past medical history prescription medication use allergies reviewed. 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 (Patient not taking: Reported on 10/17/2021 ) FAMILY HISTORY Problem Relation Age of Onset other (Other) Mother Von Willebrand disease, thrombocytopenia other (von willebrand) Mother other (thrombocytopenia) Mother GERD Father No Known Problems Maternal Grandmother other ([place]) Maternal Grandfather Thyroid Paternal Grandmother had thyroid removed Diabetes Paternal Grandmother type 2 Thyroid Paternal Grandfather Social History Tobacco Use Smoking status: Former Smokeless tobacco: Never Vaping Use Vaping Use: current everyday user Substances: Nicotine, 2 1/2% Substance Use Topics Alcohol use: No Comment: No alcohol use in home Drug use: Yes Types: Marijuana BP 102/60 Pulse 100 Temp 36.9 C (98.4 F) Resp 16 Wt 55.8 kg (123 lb) LMP 03/16/2022 SpO2 99% BMI 20.47 kg/m Review of Systems Constitutional: Negative for chills, fever and malaise/fatigue. HENT: Positive for congestion and sore throat. Negative for ear discharge, ear pain and sinus pain. Eyes: Negative for blurred vision, pain, discharge and redness. Respiratory: Positive for cough. Negative for hemoptysis, sputum production, shortness of breath, wheezing and stridor. Cardiovascular: Negative for chest pain. Gastrointestinal: Negative for abdominal pain, diarrhea, nausea and vomiting. Musculoskeletal: Negative for myalgias. Skin: Negative for itching and rash. Neurological: Positive for headaches. Negative for dizziness. Objective Physical Exam Constitutional: General: She is not in acute distress. Appearance: She is not diaphoretic. HENT: Head: Normocephalic. Right Ear: Tympanic membrane, ear canal and external ear normal. Left Ear: Tympanic membrane, ear canal and external ear normal. Nose: Congestion present. Mouth/Throat: Mouth: Mucous membranes are moist. Pharynx: Oropharynx is clear. No oropharyngeal exudate or posterior oropharyngeal erythema. Eyes: Conjunctiva/sclera: Conjunctivae normal. Pupils: Pupils are equal, round, and reactive to light. Cardiovascular: Rate and Rhythm: Normal rate and regular rhythm. Heart sounds: Normal heart sounds. Pulmonary: Effort: Pulmonary effort is normal. No tachypnea, accessory muscle usage or respiratory distress. Breath sounds: Normal breath sounds. No stridor. No wheezing, rhonchi or rales. Abdominal: Palpations: Abdomen is soft. Tenderness: There is no abdominal tenderness. There is no guarding or rebound. Musculoskeletal: Cervical back: Normal range of motion and neck supple. No rigidity or tenderness. Lymphadenopathy: Cervical: No cervical adenopathy. Skin: General: Skin is warm and dry. Neurological: Mental Status: She is alert and oriented to person, place, and time. ASSESSMENT/PLAN: 1. Viral illness - ICD9: 079.99, ICD10: B34.9 - Discussed viral etiology and rationale for treatment. - Symptomatic treatment with prn analgesia - Supportive care with fluids and rest - COVID WITH FLUA+B, ROUTINE Patient was educated on supportive therapies. Patient will follow up with primary care provider as needed. Patient was instructed to immediately proceed to emergency room for any new, worsening, or symptoms lasting longer than anticipated. The patient's clinical presentation is otherwise unremarkable at this time. Based on exam and clinical finding, the patient is stable for discharge. Plan of care was discussed with patient. Patient verbalizes understanding and agrees to plan of care. This note was generated using Xtone software. It may contain errors in wording, punctuation, or spelling. Melvin Marie APRN.STEVE documented in this encounter [facility] 06-06-2022 Miscellaneous Notes Refill request received from [facility]. Patient had yearly exam 03/30/2022 documented in this encounter [facility] 03-30-2022 History of Presen t illness Narrative Jessica is a 22 year old who presents for an annual gynecologic exam without complaints. Has 4 month old son. Stopped 2 months ago. Taking OCP without any issues. 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 LMP: 03/16/2022, Having periods Age at Menarche: Age at First : Age at Menopause: Platform Architect History Comments: Sexual Activity: Yes; Male Contraception: Condom PAST MEDICAL HISTORY Diagnosis Date Atypical squamous cells of undetermined significance (ASCUS) on Papanicolaou smear of cervix 01/19/2021 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 PMH - PAST MEDICAL HISTORY OF 06/21/10 normal color vision PAST SURGICAL HISTORY Procedure Laterality Date REMOVE TUMOR, HAND/FINGER 04/04/2016 removal on face and left arm, right side of the face FAMILY HISTORY Problem Relation Age of Onset other (Other) Mother Von Willebrand disease, thrombocytopenia other (von willebrand) Mother other (thrombocytopenia) Mother GERD Father No Known Problems Maternal Grandmother other ([place]) Maternal Grandfather Thyroid Paternal Grandmother had thyroid removed Diabetes Paternal Grandmother type 2 Thyroid Paternal Grandfather SOCIAL HISTORY Social History Tobacco Use Smoking status: Former Smoker Smokeless tobacco: Never Used Vaping Use Vaping Use: current everyday user Substances: Nicotine, 2 1/2% Substance Use Topics Alcohol use: No Comment: No alcohol use in home Drug use: Yes Types: Marijuana REVIEW OF SYSTEMS Abdomen: No abdominal pain, nausea, vomiting, diarrhea, or constipation. No bloating, early satiety, indigestion, or increased flatulence. Bladder: No dysuria, gross hematuria, urinary frequency, urinary urgency, or incontinence. Breast: No breast lumps, nipple d/c, overlying skin changes, redness or skin retraction. Allergies and current medication updated:Yes EXAM: BP 100/70 Wt 122 lb (55.3kg) LMP 03/16/2022 GENERAL: pleasant, female in no apparent distress HEENT: Normocephalic, atraumatic, mucus membranes moist and no lesions NECK: Supple and full range of motion DERMATOLOGY: Normal, without lesions, non-icteric and non-hirsute BREAST: soft, non-tender, symmetric, no dominant mass, normal nipple-areolar complex, no lymphadenopathy and no nipple discharge CHEST: Normal inspiratory effort ABDOMEN: soft, non-tender and no masses PELVIC: external genitalia normal, normal Bartholin's glands, urethra, [place]'s glands, no vulvar lesions, no cervical lesions, good vaginal support, normal appearing perineal body and perianal region, moderate amount of thick, white/yellow discharge adhered to cervix and vaginal huerta BIMANUAL: uterus normal size, shape and consistency, no adnexal masses, non-tender and no cervical motion tenderness RECTOVAGINAL: deferred. NEURO: alert and oriented x3,exam grossly non-focal EXTREMITIES: normal ASSESSMENT/PLAN: 1) Health maintenance: Pap done with reflex HPV. Nutrition, exercise and routine health maintenance exams reviewed. 2) Contraception: combined hormonal contraceptives. Contraceptive options reviewed and information provided. 3) STD screening: Declined STD check. 4) BACT/YEAST- collected and sent Follow up one year or sooner as needed Will notify patient of results Arabella Shaffer APRN.CNM documented in this encounter [facility] 01-03-2022 History of Presen t illness Narrative Ariela Crane is a 21 year old female who presents to discuss Control options. CHIEF COMPLAINT: Contraception HPI 09/04/21 LMP:Patient's last menstrual period was 12/21/2021. CONTRACEPTION: none REVIEW OF SYSTEMS GENERAL: No weight loss, malaise or fevers RESPIRATORY: Negative for cough, hemoptysis, wheezing, COPD, dyspnea or shortness of breath GI: No nausea, vomiting, or diarrhea : No history of dysuria, frequency or incontinence HEEL BUILDER: Negative for abnormal vaginal bleeding, abnormal vaginal discharge. LMP: Patient's last menstrual period was 12/21/2021. . PSYCH: Negative for sleep disturbance, mood disorder and recent psychosocial stressors All other reviewed and negative other than HPI. 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 PMH - PAST MEDICAL HISTORY OF 06/21/10 normal color vision PAST SURGICAL HISTORY Procedure Laterality Date REMOVE TUMOR, HAND/FINGER 04/04/2016 removal on face and left arm, right side of the face FAMILY HISTORY Problem Relation Age of Onset other (Other) Mother Von Willebrand disease, thrombocytopenia other (von willebrand) Mother other (thrombocytopenia) Mother GERD Father No Known Problems Maternal Grandmother other ([place]) Maternal Grandfather Thyroid Paternal Grandmother had thyroid removed Diabetes Paternal Grandmother type 2 Thyroid Paternal Grandfather Social History Tobacco Use Smoking status: Former Smoker Smokeless tobacco: Never Used Vaping Use Vaping Use: current everyday user Substances: Nicotine, 2 1/2% Substance Use Topics Alcohol use: No Comment: No alcohol use in home Drug use: Yes Types: Marijuana No data was found ALLERGIES: ALLERGIES Allergen Reactions Tamiflu [Oseltamivi* Vomiting MEDICATIONS: folic acid 0.8 mg cap Take by mouth. PHYSICAL EXAMINATION: BP 90/58 Wt 131 lb (59.4kg) LMP 12/21/2021 General: healthy, alert, cooperative, pleasant, in no acute distress, thin HEENT: Normocephalic, Eyes: normal, Mood: euthymic Neck: Supple, no lymphadenopathy, no thyroidmegaly Ext: no edema in LE bilaterally Skin: [place], warm, dry, good turgor ASSESSMENT/PLAN: 1. Encounter for initial prescription of contraceptive pills - ICD9: V25.01, ICD10: Z30.011 - RX for Gale given today. - discussed with patient on how to take OCP's. - counseled on benefits, risks and possible severe side effects of OCP's. - discussed need to use Condoms to help to prevent STD's including HIV etc. RTO- 3 months for follow up / REPEAT PAP from 2020 (ASCUS, HPV +) Arabella Shaffer APRN.CNM 1.Contraception Counseling: All contraceptive options were reviewed with that patient. r/b/a explained and teach back method was utilized. All questions were answered for 30 min. The patient understands risk including but not limited to increased risk of breast cancer, blood clots and strokes with control. She also knows that there are non-hormonal controls available. She accepts these risk and desires Arabella Shaffer APRN.CNM documented in this encounter [facility] Screening for cervical cancer- Primary Screening for malignant neoplasm of the cervix Encounter for screening for human papillomavirus (HPV) Special screening examination for human papillomavirus (HPV) Vaginal discharge Leukorrhea, not specified as infective [facility] Diagnosis Viral illness- Primary Unspecified viral infection, in conditions classified elsewhere and of unspecified site [facility] Diagnosis Encounter for gynecological examination (general) (routine) without abnormal findings- Primary Anxiety Anxiety state, unspecified Depression, unspecified depression type Vaginal discharge Leukorrhea, not specified as infective documented in this encounter [facility]* Diagnosis Pain, dental- Primary Unspecified disorder of the teeth and supporting structures documented in this encounter [facility] Summary Purpose Family History No Family History Records FoundNo Family History Records Found Advance Directives No Advanced Directives Records FoundNo Advanced Directives Records Found Health Concerns Infection Onset Date Last Indicated Resolved Time COVID-19 Rule-Out 09/23/2022 09/23/2022 Additional Source Comments INFORMATION SOURCE (unrecogn ized section and content) DATE CREATED AUTHOR AUTHOR'S ORGANIZ ATION 11/06/2023 [facility] Source Comments (unrecognize d section and content) In the event this informatio n is protected by the Federal Confidentiality of Alcohol and Drug Abuse Patient Records regulations: The Federal rules restrict any use of the information to criminally investigate or prosecute any alcohol or drug abuse patient.[facility] event this information is protected by the Federal Confidentiality of Alcohol and Drug Abuse Patient Records regulations: The Federal rules restrict any use of the information to criminally investigate or prosecute any alcohol or drug abuse patient.[facility] the event this information is protected by the Federal Confidentiality of Alcohol and Drug Abuse Patient Records regulations: The Federal rules restrict any use of the information to criminally investigate or prosecute any alcohol or drug abuse patient.[facility] the event this information is protected by the Federal Confidentiality of Alcohol and Drug Abuse Patient Records regulations: The Federal rules restrict any use of the information to criminally investigate or prosecute any alcohol or drug abuse patient.[facility] the event this information is protected by the Federal Confidentiality of Alcohol and Drug Abuse Patient Records regulations: The Federal rules restrict any use of the information to criminally investigate or prosecute any alcohol or drug abuse patient.[facility] the event this information is protected by the Federal Confidentiality of Alcohol and Drug Abuse Patient Records regulations: The Federal rules restrict any use of the information to criminally investigate or prosecute any alcohol or drug abuse patient.[facility] the event this information is protected by the Federal Confidentiality of Alcohol and Drug Abuse Patient Records regulations: The Federal rules restrict any use of the information to criminally investigate or prosecute any alcohol or drug abuse patient.[facility] the event this information is protected by the Federal Confidentiality of Alcohol and Drug Abuse Patient Records regulations: The Federal rules restrict any use of the information to criminally investigate or prosecute any alcohol or drug abuse patient.[facility] the event this information is protected by the Federal Confidentiality of Alcohol and Drug Abuse Patient Records regulations: The Federal rules restrict any use of the information to criminally investigate or prosecute any alcohol or drug abuse patient.[facility] Reason for Visit (unrecogniz ed section and content) Reason Comments Well Woman Reason Comments Refill Request Reason Comments Nasal Congestion drainage,cough and s ore throat x 4 days Reason Comments Yearly Exam Reason Comments Dental Problem 2 teeth infection x3 days FOR RECORDS PERTAINING TO PATIENTS WHO ARE OR HAVE BEEN ENROLLED IN A CHEMICAL DEPENDENCY/SUBSTANCEABUSE PROGRAM, SOME INFORMATION MAY BE OMITTED. This clinical summary was aggregated from multiple sources. Caution should be exercised in using it in the provision of clinical care. This summary normalizes information from multiple sources, and as a consequence, information in this document may materially change the coding, format and clinical context of patient data. In addition, data may be omitted in some cases. CLINICAL DECISIONS SHOULD BE BASED ON THE PRIMARY CLINICAL RECORDS. [employer] provides no warranty or guarantee of the accuracy or completeness of information in this document.
== END | disposition home or self-care (01) ==
LOC: CT 15:17
PROVIDERS: PCP Nurse Practitioner Family; Referring Provider Physician Assistant; Visit Provider Physician Assistant
DX: S92.322A Displaced fracture of second metatarsal bone, left foot, initial encounter for closed fracture (principal); M79.672 Pain in left foot; X58.XXXA Exposure to other specified factors, initial encounter
CPT/HCPCS: 73700

== ENCOUNTER 2025-08-29 04:16 | Emergency (ER) | payer MEDICAID, SELFPAY ==
[2025-08-29 04:16] VITALS: BP 98/48; PULSE 77; RESP 18; TEMP 36.4; O2SAT 99; BMI 21.4
[2025-08-29 04:19] VITALS: BP 98/48; PULSE 77; RESP 18; TEMP 36.4; O2SAT 99
[2025-08-29] MEDS: Lidocaine 1% (20 ml mdv) 20 ML Vial INFILT (04:58)
--- NOTE | 2025-08-29 05:14 | EX.ED.DYSGE1 ---
HPI History of Present Illness Chief Complaint: Abscess Informant: patient Narrative Narrative: Patient is a 25-year-old female presenting with a painful cyst on the tailbone. - Noticed cyst on 2-3 days ago; first time experiencing this, but has noticed a relatively painless nodule there before near her tailbone. - Evaluated at urgent care, diagnosed with an infection, and started on antibiotics, referred to surgery as an outpt - has an appt on the . - Has been applying warm compresses as instructed. - Reports development of a large frances on the cyst, causing significant pain; woke up in tears this morning. - Denies any drainage from the cyst. - Denies history of DM. PFSH PFSH Medical History no medical history no medical history Home Medications Medication Instructions Recorded Last Taken Type doxycycline monohydrate 100 mg 100 mg PO BID #20 CAPSULES 08/29/25 Unknown Rx capsule Allergy/AdvReac Type Severity Reaction Status Date / Time oseltamivir (From Tamiflu) Allergy Swelling Verified 08/29/25 04:16 Surgical History History of surgery Social History Smoking Status: Former smoker ROS ROS ED Constitutional Constitutional ED: Denies chills or fever(s) Respiratory/Chest Respiratory/Chest: Denies dyspnea Gastrointestinal Gastrointestinal: Denies abdominal pain, nausea or vomiting Musculoskeletal Musculoskeletal: Denies back pain or neck pain Integumentary Reports abscess EXAM Physical Exam Const Vital Signs: 08/29/25 04:16 08/29/25 04:19 Temperature 97.6 F L 97.6 F L Temperature Source Oral Oral Pulse Rate 77 77 Respiratory Rate 18 18 Blood Pressure 98/48 L 98/48 L Blood Pressure Mean 64 64 Pulse Ox 99 99 Positive well nourished and well developed General Appearance ED: well developed and NAD Neck supple General: Negative for tenderness Resp normal respiratory effort Neuro oriented x3, CN's II-XII intact bilaterally and no sensory deficits noted Neuro Narrative: Normal gait Motor Exam: strength 5/5 throughout Psych mental status grossly normal Skin Skin Narrative: 3 cm fluctuant very tender erythematous abscess on tailbone consistent with pilonidal, a little left of midline. No spontaneous discharge. Several pustule seen within the center. MDM MDM MDM Narrative Medical decision making narrative: Assessment: The patient is a 25-year-old female presenting for a painful swelling over the sacrococcygeal area since 2-3 days ago. Clinical exam is consistent with a pilonidal abscess; purulent drainage expressed on incision and drainage confirms the diagnosis. Augmentin previously prescribed is sub-optimal for purulent coverage, so antibiotic coverage changed to doxycycline. Plan: - Incision and drainage performed; large amount of pus expressed. - Cavity irrigated and packed per procedure note. - Discontinued Augmentin; initiated doxycycline for MRSA coverage. - Provided wound care instructions: packing removal in 2 days, warm sitz baths, continue antibiotics. - Advised outpatient surgical follow-up for definitive excision once infection resolved. - Discharged home in stable condition. Procedures Other Procedures Procedure(s): Complex pilonidal abscess incision and drainage: After prep with isopropanol and chlorhexidine, the area surrounding the pilonidal abscess was was locally anesthetized with 5 cc of plain 1% lidocaine, incised centrally with #10 blade, large amount of purulent material was expressed. The cavity was irrigated, and packed with half-inch iodoform gauze and dressed with a bulky dressing. Tolerated well no complications. Discharge Plan Triage Chief Complaint: Abscess ED Provider: Kevin Rajput Dx/Rx/DC Orders Clinical Impression: Pilonidal abscess Instructions: ED Pilonidal Cyst Infec I&D Prescriptions: New doxycycline monohydrate 100 mg capsule 100 mg PO BID Qty: 20 0RF Discontinued amoxicillin-pot clavulanate 875-125 mg tablet 1 tab PO Q12.TCU Primary Care Provider: Care Physician,No Primary Referrals: Surgery as scheduled [Other] Activity Restrictions/Additional Instructions: - Take doxycycline as prescribed to replace your current antibiotic for better coverage of purulent organisms. - Continue your antibiotic course until it is finished. - Perform sitz baths as instructed to help keep the area clean and promote healing. - Try to leave packing intact for 48 hours and then remove and discard. If it falls out earlier than that, do not worry about it, just continue dressing changes. If there is any water that gets into the area after a shower or what not, you may gently apply pressure to the surrounding area to express it prior to a new dressing change. Antibiotic ointment on the area with these dressing changes okay as well. If you are concerned about it recurring or getting worse, return to the ER for reevaluation. - Follow up with surgery on the at [facility] for evaluation for removal of the pilonidal cyst. Print Language: [place] Disposition Disposition: Home, Self Care
--- OUTSIDE RECORDS SUMMARY | 2025-08-29 05:20 | XMS RPT_ITS | CCD ---
Author Organization [facility] Care Team Providers Care Sample Examiner Name Role Phone Unavailable Primary Care Provider Lionel Odom Referring Unavailable Lionel Ortiz Attending Unavailable Vince DRINK WAITERErvin Primary Care Unavailable Andreas Bobo Attending Unavailable Vince DRINK WAITER, Ervin Primary Care Unavailable Unavailable Primary Care Provider ARABELLA Damon Attending Unavailable Allergies Allergy Classification Reported Allergen(s) Allergy Type Date of Onset Reaction(s) Facility (14 sources) Oseltamivir; Translations: [OSELTAMIVIR PHOSPHATE] Drug Allergy 03-06-2006 Vomiting [facility] (2 sources) Oseltamivir Drug Allergy 06-30-2023 Swelling [facility] (1 source) Oseltamivir Drug Allergy 06-30-2023 [facility] Repository Medications Current Medications Medication Drug Class(es) Dates Sig (Normalized) Sig (Original) acetaminophen 500 mg oral tablet (2 sources) Start: 09-05-2021 take 1000 mg by mouth every six hours as needed Acetaminophen Active 1000 MG PO EVERY 6 HOURS NEEDED 0 September 05, 2021 12:00am acetaminophen 325 mg / HYDROcodone bitartrate 5 mg oral tablet (2 sources) Opioid Agonist Start: 06-30-2023 take 1 tablet by mouth every six hours as needed Hydrocodone-Acetam inophen Active 1 TABLET PO EVERY 6 HOURS NEEDED 12 3 June 30, 2023 amoxicillin 875 mg oral tablet (1 source) Penicillin-class Antibacterial Start: 06-26-2023 End: 07-06-2023 take 1 tablet by mouth twice daily amoxicillin (AMOXIL) 875 mg tablet Take 1 tablet by mouth twice daily for 10 days. 20 tablet 0 06/26/2023 07/06/2023 Active Comment on above: Take 1 tablet by tammie twice daily for 10 days. benzocaine 200 mg/ml / menthol 5 mg/ml topical spray (2 sources) Standardized Chemical Allergen Start: 09-05-2021 apply 1 spray(s) topically three times daily as needed Benzocaine-Menthol (Dermoplast (With Menthol)) 20-0.5 % Aerosol Active 1 SPRAY TOPICAL 3 TIMES DAILY NEEDED 0 September 05, 2021 12:00am fluconazole 150 mg oral tablet (1 source) Azole Antifungal Start: 06-26-2023 End: 06-27-2023 take 1 tablet by mouth once daily fluconazole (DIFLUCAN) 150 mg tablet Take 1 tablet by mouth once daily for 1 day. 1 tablet 0 06/26/2023 06/27/2023 Active Comment on above: Take 1 tablet by tammie th once daily for 1 day. naproxen 500 mg oral tablet (2 sources) Nonsteroidal Anti-inflammatory Drug Start: 09-05-2021 take 500 mg by mouth every eight hours as needed Naproxen Active 500 MG PO EVERY 8 HOURS NEEDED 30 7 September 05, 2021 12:00am Mixvllfl-Vlv-Ed-Fa (2 sources) Start: 09-03-2021 take 1 tablet by mouth once daily Qidcxnas-Dxf-Bp-Fa Active 1 TABLET PO DAILY September 03, 2021 12:00am Start: 09-03-2021 take 1 tablet by tammie th once daily Nfjbzqjr-Qvc-Nq-Fa Active 1 TABLET PO DAILY September 03, 2021 1:00am Completed/Discontinued Medications Medication Drug Class(es) Dates Sig (Normalized) Sig (Original) drospirenone / Ethinyl Estradiol (13 sources) Progestin, Estrogen Start: 03-29-2023 End: 11-20-2023 take 1 tablet by mouth once daily Drospirenone-Ethiny l Estradiol 3-0.03 mg per tablet Take 1 tablet by mouth once daily. 84 tablet 4 03/29/2023 11/20/2023 Discontinued (Patient chooses alternative therapy) Start: 03-29-2023 take 1 tablet by tammie th once daily Drospirenone-Ethinyl Estradiol 3-0.03 mg per tablet Take 1 tablet by mouth once daily. 84 tablet 4 03/29/2023 Active Start: 11-16-2022 End: 03-29-2023 take 1 tablet by mouth once daily Drospirenone-Ethinyl Estradiol 3-0.03 mg per tablet TAKE 1 TABLET BY MOUTH EVERY DAY 28 tablet 5 11/16/2022 03/29/2023 Discontinued Start: 11-16-2022 take 1 tablet by tammie th once daily Drospirenone-Ethinyl Estradiol 3-0.03 mg per tablet TAKE 1 TABLET BY MOUTH EVERY DAY 28 tablet 5 11/16/2022 Active Start: 06-06-2022 End: 11-16-2022 take 1 tablet by mouth once daily Drospirenone-Ethinyl Estradiol 3-0.03 mg per tablet TAKE 1 TABLET BY MOUTH EVERY DAY 28 tablet 5 06/06/2022 11/16/2022 Discontinued Start: 06-06-2022 take 1 tablet by tammie th once daily Drospirenone-Ethinyl Estradiol 3-0.03 mg per tablet TAKE 1 TABLET BY MOUTH EVERY DAY 28 tablet 5 06/06/2022 Active Start: 01-03-2022 End: 06-06-2022 take 1 tablet by mouth once daily Drospirenone-Ethinyl Estradiol (GALE, 28,) 3-0.03 mg per tablet Take 1 tablet by mouth once daily. 84 tablet 1 01/03/2022 06/06/2022 Discontinued Start: 01-03-2022 take 1 tablet by tammie th once daily Drospirenone-Ethinyl Estradiol (GALE, 28,) 3-0.03 mg per tablet Take 1 tablet by mouth once daily. 84 tablet 1 01/03/2022 Active Comment on above: Take 1 tablet by tammie th once daily. TAKE 1 TABLET BY TAMMIE TH EVERY DAY folic acid 0.8 mg oral capsule (12 sources) End: 06-17-2024 folic acid 0.8 mg cap Take by mouth. 06/17/2024 Discontinued (Discontinued by Patient) Comment on above: Take by mouth. Problems Active Problems Problem Classification Problem Date Documented Date Episodic/Chronic Abdominal pain (4 sources) Abdominal pain; Translations: [Unspecified abdominal pain] 02-26-2020 Episodic Anxiety disorders (1 source) Anxiety; Translations: [Anxiety disorder, unspecified] Chronic Contraceptive and procreative management (2 sources) Patient encounter status; Translations: [Encounter for initial prescription of contraceptive pills] Episodic Early or threatened labor (2 sources) Uterine contractions present; Translations: [False labor, unspecified] 09-03-2021 Episodic Fracture of lower limb (1 source) Displaced fracture of second metatarsal bone, left foot, initial encounter for closed fracture; Translations: [Displaced fracture of second metatarsal bone, left foot, initial encounter for closed fracture] Onset: 11-13-2023 Episodic Menstrual disorders (4 sources) Irregular periods; Translations: [Irregular menstruation, unspecified] Onset: 06-17-2024 06-17-2024 Chronic Mood disorders (1 source) Depressive disorder; Translations: [Depression, unspecified depression type] Chronic OB-related trauma to perineum and vulva (2 sources) Vaginal tear resulting from childbirth; Translations: [Second degree perineal laceration during delivery] 09-04-2021 Episodic Other female genital disorders (2 sources) Vaginal discharge; Translations: [Other specified noninflammatory disorders of vagina] Episodic Other lower respiratory disease (2 sources) Dyspnea; Translations: [Dyspnea, unspecified] 07-07-2020 Episodic Other nutritional; endocrine; and metabolic disorders (1 source) Abnormal weight loss; Translations: [Abnormal weight loss] 06-17-2024 Episodic Other and delivery including normal (2 sources) Vaginal delivery; Translations: [Encounter for full-term uncomplicated delivery] 09-04-2021 Episodic Other screening for suspected conditions (not mental disorders or infectious disease) (3 sources) Cancer cervix screening status; Translations: [Encounter for screening for malignant neoplasm of cervix] Onset: 06-18-2025 Episodic Other upper respiratory infections (2 sources) Upper respiratory infection; Translations: [Acute upper respiratory infection, unspecified] 07-07-2020 Episodic Residual codes; unclassified (3 sources) Pain; Translations: [Pain, unspecified] 06-30-2023 Episodic Residual codes; unclassified (2 sources) Gestation period, 39 weeks; Translations: [39 weeks gestation of ] 09-03-2021 Episodic Unclassified (2 sources) Spontaneous onset of labor; Translations: [Spontaneous onset of labor] 09-03-2021 Unclassified (2 sources) Normal labor; Translations: [Active labor at term] 09-03-2021 Viral infection (1 source) Viral disease; Translations: [Viral infection, unspecified] Episodic Past or Other Problems Problem Classification Problem Date Documented Da te Episodic/Chronic Cancer of cervix (13 sources) Atypical squamous cells of undetermined significance on cervical Papanicolaou smear; Translations: [Atypical squamous cells of undetermined significance on cytologic smear of cervix (ASC-US)] Onset: 01-19-2021 01-25-2021 Episodic Disorders of teeth and jaw (6 sources) Toothache; Translations: [Other specified disorders of teeth and supporting structures] Onset: 07-04-2023 06-26-2023 Episodic Other complications of (13 sources) Urinary tract infection in ; Translations: [Unspecified infection of urinary tract in , unspecified trimester] Onset: 02-06-2021 02-06-2021 Episodic Other complications of (15 sources) Rubella non-immune; Translations: [Rubella non-immune status, antepartum] Onset: 03-07-2021 03-07-2021 Episodic Other complications of (13 sources) High risk ; Translations: [Supervision of high risk , unspecified, third trimester] Onset: 06-07-2021 06-07-2021 Episodic Other injuries and conditions due to external causes (13 sources) Finding of urine substance level; Translations: [Elevated urine levels of drugs, medicaments and biological substances] Onset: 01-16-2021 01-16-2021 Episodic Residual codes; unclassified (13 sources) Nicotine-filled electronic cigarette user; Translations: [Tobacco use] Onset: 01-12-2021 01-12-2021 Episodic Residual codes; unclassified (13 sources) Family history of Von Willebrand disease; Translations: [Family history of diseases of the blood and blood-forming organs and certain disorders involving the immune mechanism] Onset: 01-12-2021 01-16-2021 Episodic Substance-related disorders (15 sources) Marijuana user; Translations: [Cannabis use, unspecified, uncomplicated] Onset: 01-12-2021 01-12-2021 Episodic Results Test Name Value Interpretation Reference Range Facility Jose 06-28-2025 CNCO Letter Text [facility] Andrea 06-18-2025 CNOV Office Visit (OBGYWM ) ----- ARIELA CRANE ([id number]) 2000 F Date Time Provider Department 06/18/25 2:45 PM ARABELLA SHAFFER OBGYWJair During your visit today, we recorded the following information about you: Blood pressure Weight Height Last Period 92/54 57.6 kg 1.626 m 06/14/25 Arabella Shaffer APRN.CN 06/18/2025 3:46 PM Signed Returned Goods Inspector offered: Patient declinesMegan Lopez is a 25 year old who presents for an annual gynecologic exam with complaints, irregular cycles.. Tracking cycles- interested in trying for . Started new job at [employer]. Menstrual flow: Moderate Bleeding amount bothersome: No Bleeding between periods: Yes Contraception: None Contraception frequency: Never HPV vaccine: No HPV:negative Last pap smear: 2020 OB History Gravida1 Para1 Term1 Preterm0 AB0 Living1 SAB0 IAB0 Ectopic0 Multiple0 Live Births1 Manager Editorial History LMP: 06/14/2025, Having periods Age at Menarche: Age at First : Age at Menopause: Manager Editorial History Comments: Sexual Activity: Yes; Male Contraception: Not used PAST MEDICAL HISTORY Diagnosis Date Atypical squamous cells of undetermined significance (ASCUS) on Papanicolaou smear of cervix 01/19/2021 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 PMH - PAST MEDICAL HISTORY OF 06/21/10 normal color vision PAST SURGICAL HISTORY Procedure Laterality Date REMOVE TUMOR, HAND/FINGER 04/04/2016 removal on face and left arm, right side of the face REMOVE TUMOR, NECK/CHEST 08/13/2024 FAMILY HISTORY Problem Relation Age of Onset other (Other) Mother Von Willebrand disease, thrombocytopenia other (von willebrand) Mother other (thrombocytopenia) Mother GERD Father No Known Problems Maternal Grandmother other (Agent Mel[employer]) Maternal Grandfather Thyroid Paternal Grandmother had thyroid removed Diabetes Paternal Grandmother type 2 Thyroid Paternal Grandfather SOCIAL HISTORY Social History Tobacco Use Smoking status: Former Smokeless tobacco: Never Vaping Use Vaping status: current everyday user Substances: Nicotine, 2 1/2% [...] skin retraction. Allergies and current medication updated:Yes SENSITIVE EXAM: The sensitive examination was discussed with the Patient or Patient's Authorized Manager Of Engineering. As applicable, any other physician, advance practice provider, medical student, or other health professional student that will be observing or involved in the sensitive examination for educational or training purposes was discussed with the Patient or Authorized Manager Of Engineering. The Patient or Authorized Manager Of Engineering has agreed to proceed with the sensitive examination. (Sensitive examination includes inspection and/or palpation of the breasts, pelvis, prostate and anorectal regions). EXAM: BP 92/54 Ht 5' 4" (1.63m) Wt 127 lb (57.6kg) LMP 06/14/2025 BMI 21.79 kg/(m2). GENERAL: pleasant, female in no apparent distress HEENT: Normocephalic and atraumatic NECK: Supple and full range of motion DERMATOLOGY: Normal, without lesions, non-icteric, and non-hirsute BREAST: soft, non-tender, symmetric, no dominant mass, normal nipple-areolar complex, no lymphadenopathy, and no nipple discharge CHEST: Normal inspiratory effort ABDOMEN: soft, non-tender, and no masses PELVIC: external genitalia normal, normal Bartholin's glands, urethra, Polson's glands, no vulvar lesions, no cervical lesions, good vaginal support, physiologic discharge present, normal appearing perineal body and perianal region, small amount of blood present- started period today BIMANUAL: uterus normal size, shape and consistency, no adnexal masses, non-tender, and no cervical motion tenderness RECTOVAGINAL: deferred. NEURO: alert and oriented x3,exam grossly non-focal EXTREMITIES: normal ASSESSMENT/PLAN: 1) Health maintenance: Pap done with reflex HPV. Smoking cessation: Patient does not smoke. Quit vaping last month! 2) Contraception: none. Desires 3) STD screening: Declined STI check. 4) Start taking vitamin daily Follow up one year or sooner as needed Arabella Shaffer APRN.CARMELM Allergies As of Date: 06/18/2025 Noted Allergy Reaction TAMIFLU (OSELTAMIVIR PHOSPHATE) 03/06/2006 11 - Vomiting Date Reviewed: 06/18/2025 Reviewed by: Iris Cruz MA - Fully Assessed Reason for Visit: Yearly Exam [187] Primary Visit Diagnosis:Encounter for gynecological examin (more content not included)... [facility] PAP TESTon 06-18-2025 ADEQUACY [facility] Comment on above: Order Comment: Speci men Type: FLUID SPECIMEN Ordering Facility: [facility] Address: [address] [place] [address] Result Comment: Sati sfactory for interpretation. Transformation zone present Excess blood Performed By: #### L [id number] #### [facility] CLIA [id number] [address] [place] [address] [place] CASE REPORT [facility] Comment on above: Order Comment: Speci men Type: FLUID SPECIMEN Ordering Facility: [facility] Address: [address] [place] [address] Result Comment: Gyne cologic Cytology Report Case: [id number] Authorizing Provider: Arabella Shaffer APRN.CNM Collected: 06/18/2025 03:24 PM Ordering Location: OB/Gynecology Received: 06/18/2025 04:31 PM First Screen: Prince Gray, CT, ASCP Rescreen: Jossie Dill, CT, ASCP Specimen: Pap Test, ThinPrep, Cervix Performed By: #### L [id number] #### [facility] CLIA [id number] [address] [place] [address] [place] CLINICAL HISTORY, CYTOLOGY, BUILDING SUPERVISOR Routine Exam [facility] Comment on above: Order Comment: Speci men Type: FLUID SPECIMEN Ordering Facility: [facility] Address: [address] [place] [address] Performed By: #### L [id number] #### [facility] CLIA [id number] [address] [place] [address] [place] FINAL PERFORMING LAB [facility] Comment on above: Order Comment: Speci men Type: FLUID SPECIMEN Ordering Facility: [facility] Address: [address] [place] [address] Result Comment: Tech nical component, ehs specialist screening performed at: [facility], [address] [place] [address] [place] [address] CLIA: [id number] Diagnostic interpretation performed at: [facility], [address] [place] [address] [place] [address] CLIA# [id number] Target Setter: Parmjit Cheng MD Performed By: #### L [id number] #### [facility] CLIA [id number] [address] [place] [address] [place] GROSS DESCRIPTION A. Cervix Normal [facility] Comment on above: Order Comment: Speci men Type: FLUID SPECIMEN Ordering Facility: [facility] Address: [address] [place] [address] Result Comment: [facility] ial Acetic Acid added. Performed By: #### L [id number] #### [facility] CLIA [id number] [address] [place] [address] [place] INTERPRETATION, CYTOLOGY, BUILDING SUPERVISOR [facility] Comment on above: Order Comment: Speci men Type: FLUID SPECIMEN Ordering Facility: [facility] Address: [address] [place] [address] Result Comment: Nega tive for intraepithelial lesion or malignancy. at 0947 EDT Performed By: #### L [id number] #### [facility] CLIA [id number] [address] [place] [address] [place] LMP 06/14/2025 [facility] Comment on above: Order Comment: Speci men Type: FLUID SPECIMEN Ordering Facility: [facility] Address: [address] [place] [address] Performed By: #### L [id number] #### [facility] CLIA [id number] [address] [place] [address] [place] PAP DISCLAIMER COMMENT The Pap Smear is a screening test for cervical cancer. False negative results occur with all screening tests, emphasizing the need for rescreening at recommended intervals, and clinical correlation. [facility] Comment on above: Order Comment: Speci men Type: FLUID SPECIMEN Ordering Facility: [facility] Address: [address] [place] [address] Performed By: #### L [id number] #### [facility] [place] [id number] [address] [place] [address] [place] PAP BLENDER MACHINE OPERATOR COMMENT This specimen has be en analyzed by the FDA-approved Kngine System, which uses digital imaging and an enhanced artificial intelligence image analysis algorithm to identify bonilla of interest on the microscopic slide, to assist the arc furnace operator and pathologist in evaluating cells on ThinPrep Pap tests. Following analysis, bonilla of interest on the microscopic slide selected by the algorithm are reviewed by a arc furnace operator. If a sample requires hierarchical review, the pathologist will review the same bonilla of interest selected by the algorithm prior to final interpretation. [facility] Comment on above: Order Comment: Speci men Type: FLUID SPECIMEN Ordering Facility: [facility] Address: [address] [place] [address] Performed By: #### L [id number] #### [facility] [place] [id number] [address] [place] [address] [place] CBC panel Auto (Bld)on 06-17 Erythrocyte distribution width (RBC) [Ratio] 11.5 % 11.5 - 15.0 % [facility] Hematocrit (Bld) [Volume fraction] 39.7 % 36.0 - 46.0 % [facility] Hemoglobin (Bld) [Mass/Vol] 13.4 g/dL 11.5 - 15.5 g/dL [facility] Interpretation and review of laboratory results Normal [facility] MCH (RBC) [Entitic mass] 31.5 pg 26.0 - 34.0 pg [facility] MCHC (RBC) [Mass/Vol] 33.8 g/dL 30.5 - 36.0 g/dL [facility] MCV (RBC) [Entitic vol] 93.4 fL 80.0 - 100.0 fL [facility] Nucleated RBC (Bld) [#/Vol] NINF [facility] Platelet mean volume (Bld) [Entitic vol] 9.9 fL 9.0 - 12.7 fL [facility] Platelets (Bld) [#/Vol] 276 10*3/uL [facility] RBC (Bld) [#/Vol] 4.25 10*6/uL 3.90 - 5.2 0 m/uL [facility] WBC (Bld) [#/Vol] 3.89 10*3/uL [facility] Comprehensive metabolic 2000 panelon 06-17-2024 Albumin [Mass/Vol] 4.6 g/dL 3.9 - 4.9 g/dL [facility] ALP [Catalytic activity/Vol] 50 U/L 34 - 123 U/L [facility] ALT [Catalytic activity/Vol] 9 U/L 7 - 38 U/L [facility] Anion gap [Moles/Vol] 12 mmol/L 8 - 15 mmol/L [facility] AST [Catalytic activity/Vol] 14 U/L 13 - 35 U/L [facility] Bilirubin [Mass/Vol] 0.5 mg/dL 0.2 - 1.3 mg/dL [facility] Calcium [Mass/Vol] 9.3 mg/dL 8.5 - 10. 2 mg/dL [facility] Chloride [Moles/Vol] 105 mmol/L 98 - 107 mmol/L [facility] CO2 [Moles/Vol] 25 mmol/L 22 - 30 mmol/L [facility] Creatinine [Mass/Vol] 0.80 mg/dL 0.58 - 0.96 mg/dL [facility] GFR/1.73 sq M.predicted among non-blacks MDRD (S/P/Bld) [Vol rate/Area] 105 mL/min/{1.73_m2} - PINF [facility] Comment on above: Estimated Glomerular Filtration Rate (eGFR) is calculated using the 2020 CKD-EPI creatinine equation. This equation utilizes serum creatinine, sex, and age as parameters. The creatinine assay has traceable calibration to isotope dilution-mass spectrometry. Refer to KDIGO guidelines for clinical interpretation. In patients with unstable renal function, e.g. those with acute kidney injury, the eGFR may not accurately reflect actual GFR. Glucose [Mass/Vol] 98 mg/dL 74 - 99 mg/dL [facility] Comment on above: The [place] Di[employer] s Association (ADA) provides guidance for cutoff values for fasting glucose and random glucose. The ADA defines fasting as no caloric intake for at least 8 hours. Fasting plasma glucose results between 100 to 125 mg/dL indicate increased risk for diabetes (prediabetes). Fasting plasma glucose results greater than or equal to 126 mg/dL meet the criteria for diagnosis of diabetes. In the absence of unequivocal hyperglycemia, results should be confirmed by repeat testing. In a patient with classic symptoms of hyperglycemia or hyperglycemic crisis, random plasma glucose results greater than or equal to 200 mg/dL meet the criteria for diagnosis of diabetes. Reference: Standards of Medical Care in Diabetes 2016, [place] [employer]. Diabetes Care. 2016.39(Suppl 1). Interpretation and review of laboratory results Normal [facility] Potassium [Moles/Vol] 3.7 mmol/L 3.7 - 5.1 mmol/L [facility] Protein [Mass/Vol] 7.0 g/dL 6.3 - 8.0 g/dL [facility] Sodium [Moles/Vol] 142 mmol/L 136 - 144 mmol/L [facility] Urea nitrogen [Mass/Vol] 8 mg/dL 7 - 21 mg/dL [facility] Extremity Lower without Cont raon 11-08-2023 Extremity Lower without Contra [facility] Imaging Services [address] [place] [address] Extremity Lower without Contra MR#: [id number] Acct: [id number] Name: ARIELA CRANE Rep #: [id number] : 2000 F 23 From: Tanner Ross MD PCP: GUERDA Chapman Status: REG CLI Study: Extremity Lower without Contra Date of Exam: 0 11/08/23 Exam# [id number] Ordering Dr: Lionel Ortiz PAArethaC [id number] CT LEFT LOWER EXTREMITY WITH 3-D IMAGING CLINICAL INDICATION: PAIN IN L FOOT TECHNIQUE: Axial CT images of the LEFT lower extremity was performed without IV contrast material. Coronal and sagittal reformats were provided. RADIATION DOSAGE (If Supplied By Facility): CTDIvol = ( 15.35 ) mGy, DLP = ( 357.60 ) mGycm COMPARISON: No relevant prior comparison study available FINDINGS: Bones: Osseous structures are normal without evidence of fracture or dislocation. No lytic or blastic osseous masses. Soft Tissues: The deep soft tissue structures are unremarkable. The superficial soft tissues are unremarkable without evidence of edema, hematoma, or foreign body. CT/Extremity Lower without Contra IMPRESSION: Unremarkable study. Electronically Signed: Tanner Ross MD at 16:35 EST , CC: GUERDA Clarke; TED Ortiz Belling Machine Operator: Signed Normal [facility] XR Toes - left 3 Viewson IMPRESSION: Small liliya ne fragment along the base of the second metatarsal bone, raising concern for avulsion fracture. Please clinically correlate. Belling Machine Operator: NOMAN Transcribe Date/Time: Oct 18 2023 10:42A Dictated by : MARILEE HOLLAND MD This examination was interpreted and the report reviewed and electronically signed by: MARILEE HOLLAND MD on Oct 18 2023 10:47AM [facility] DIVISION OF RADIOLOGY * * *Final Report* * * DATE OF EXAM: Oct 18 2023 10:38AM WOX 5268 - XR TOE 3V AP/LAT/OBL LT / PROCEDURE REASON: Pain * * * * Physician Interpretation * [...] normal. Mild soft tissue swelling is noted. DIVISION OF RADIOLOGY Provider, [facility] - 10/18/2023 * * *Final Report* * * DATE OF EXAM: Oct 18 2023 10:38AM WOX 5268 - XR TOE 3V AP/LAT/OBL LT / PROCEDURE REASON: Pain * * * * Physician Interpretation * [...] concern for avulsion fracture. Please clinically correlate. Belling Machine Operator: NOMAN Transcribe Date/Time: Oct 18 2023 10:42A Dictated by : MARILEE HOLLAND MD This examination was interpreted and the report reviewed and electronically signed by: MARILEE HOLLAND MD on Oct 18 2023 10:47AM EST [facility] Radiology Study observation (narrative) [facility] XR Toes - left 3 ViewsOrdere d By: Ccf Provider on 10-18-2023 [facility] Emergency Department Summary on 06-30-2023 Emergency Department Summary [facility] Medical Records Department [address] [place] [address] Emergency Department Summary 06/30/23 MR#: [id number] Acct: [id number] Name: ARIELA CRANE Rep #: [id number] : 2000 23 From: Andreas Weathers PCP: GUERDA Chapman Status:DEP ER Location: ED HPI History of Present Illness Chief Complaint: Dental Informant: patient Narrative Narrative: Worsening of right lower dental pain since Saturday. History dental filling that fell out months ago. Pain started Saturday went to urgent care started on amoxicillin. Has a dental appointment this coming Saturday. No fevers or chills hot and cold sensitivities. Has been using Tylenol with no relief. She has a ride here. Has tolerated Tynan in the past. PFSH PFSH Home Medications knjgcfrm-dhd-Yq-FA 1 mg tablet 1 tab PO DAILY 11/21/21 [History Last Taken Unknown] acetaminophen 500 mg tablet 1,000 mg (2 x 500 mg) PO Q6H PRN PRN Pain 1-10 Or Fever #0 tabs 09/05/21 [Rx Last Taken Unknown] benzocaine 20 %-menthol 0.5 % topical aerosol (Dermoplast (with menthol)) 1 spray topical TID PRN PRN perineal discomfort #0 grams 09/05/21 [Rx Last Taken Unknown] naproxen 500 mg tablet 500 mg PO Q8H PRN PRN Pain Score 1-3 7 days #30 tabs 09/05/21 [Rx Last Taken Unknown] hydrocodone-acetaminophen 5-325mg 5mg-325mg 1 tab PO Q6H PRN PRN Pain 3 days #12 TABLETS 06/30/23 [Rx Last Taken Unknown] Allergy/AdvReac Type Severity Reaction Status Date / Time oseltamivir [From Tamiflu] Allergy Swelling Verified 06/30/23 10:34 Surgical History History of surgery Social History Smoking Status: Former smoker ROS ROS ED Constitutional Constitutional ED: Denies chills, fever(s) or sweats Eyes Eyes: Denies change in vision ENT ENT ED: Reports other Details: Dental pain ; Denies dysphagia or sore throat Cardiovascular Cardiovascular: Denies chest pain, leg edema, palpitations or racing heartbeat Respiratory/Chest Respiratory/Chest: Denies cough, dyspnea or dyspnea on exertion Gastrointestinal Gastrointestinal: Denies abdominal pain, diarrhea, nausea or vomiting Genitourinary Genitourinary ED: Denies dysuria, hematuria or urinary frequency Musculoskeletal Musculoskeletal: Denies back pain, extremity pain or neck pain Integumentary Denies rash or wounds Neurologic Neurologic: Denies headache(s), paresthesias or weakness EXAM Physical Exam Const Vital Signs: 06/30/23 10:35 Temperature 97.3 F L Temperature Source Temporal Pulse Rate 66 Respiratory Rate 14 Blood Pressure 130/63 H Blood Pressure Mean 85 Pulse Ox 99 Oxygen Delivery Method Room Air Positive well nourished and well developed General Appearance ED: well developed and NAD HEENT Reports moist mucous membranes HEENT Narrative: Focal neuro dental carry tooth #30, no fluctuance no abscess no sublingual edema. Tender to percussion of the tooth. Airway patent. No swelling. normocephalic and atraumatic Eyes PERRL, EOMs intact bilaterally and conjunctivae normal General Eye ED: Yes normal appearance of both eyes Neck no lymphadenopathy and supple Neck Narrative: No crepitus of the neck General: Negative for tenderness Chest Wall Chest: Negative for tenderness Resp normal respiratory effort and normal air movement Effort and Inspection: symmetric chest movement; Negative for respiratory distress Cardio regular rate, regular rhythm and no murmurs Peripheral Pulses: pulses 2+ throughout GI normal to inspection, nondistended, normoactive bowel sounds and non-tender Palpation: Negative for guarding or rebound tenderness present Back/Spine no CVA tenderness and no thoracic nor lumbar tenderness Extremity normal to inspection General Extremety ED: Negative for edema or tenderness General Extremity: Negative for edema Neuro oriented x3 and no sensory deficits noted Sensorium / Orientation: awake and alert Skin no rashes or lesions noted and no wounds MDM MDM MDM Narrative Medical decision making narrative: Interventions / MDM: Differential diagnosis: Dental caries, dentalgia Diagnosis considered but do not suspect: No clinical abscess My EKG interpretation: N/A Imaging independently reviewed and interpreted by myself: N/A External documents reviewed: N/A Test considered but not ordered:N/A ED course: Vital stable no increasing pain. Focal dental carry with hot and cold sensitivities. Currently on antibiotics for which she is taking. OARRS report was negative. Patient started on Tynan, she will use NSAIDs at home also. She will keep her appointment this coming Saturday with her dentist for definitive evaluation and treatment plans. All questions were answered. Re- (more content not included)... Normal [facility] OCCULT BLOOD TEST,STOOLon OCCULT BLOOD,STOOL Canceled Normal [facility] Comment on above: Order Comment: TEST OCCULT BLOOD TEST,STOOL WAS CANCELLED, 01/18/2021 07:21 NO SPECIMEN RECEIVED IN LAB. Performed By: #### O CCB1 #### [facility] [address] [address] CBC AND DIFFERENTIALon 01-16 Basophils (Bld) [#/Vol] 0.00 10*3/uL Normal 0.00 - 0.10 [facility] Comment on above: Performed By: #### C BCDF #### [address] [address] Basophils/100 WBC (Bld) 0.3 % Normal 0.0 - 2.0 [facility] Comment on above: Performed By: #### C BCDF #### [address] [address] Eosinophils (Bld) [#/Vol] 0.00 10*3/uL Normal 0.00 - 0.70 [facility] Comment on above: Performed By: #### C BCDF #### [address] [address] Eosinophils/100 WBC (Bld) 0.4 % Normal 0.0 - 6.0 [facility] Comment on above: Performed By: #### C BCDF #### [address] [address] Erythrocyte distribution width (RBC) [Ratio] 12.5 % Normal 11.5 - 14.5 [facility] Comment on above: Performed By: #### C BCDF #### [address] [address] Hematocrit (Bld) [Volume fraction] 39.9 % Normal 36.0 - 46.0 [facility] Comment on above: Performed By: #### C BCDF #### [address] [address] Hemoglobin (Bld) [Mass/Vol] 13.5 g/dL Normal 12.0 - 16.0 [facility] Comment on above: Performed By: #### C BCDF #### [address] [address] Lymphocytes (Bld) [#/Vol] 1.00 10*3/uL Low 1.20 - 4.80 [facility] Comment on above: Performed By: #### C BCDF #### [address] [address] Lymphocytes/100 WBC (Bld) 15.6 % Normal 13.0 - 44.0 [facility] Comment on above: Performed By: #### C BCDF #### [address] [address] MCHC (RBC) [Mass/Vol] 33.7 g/dL Normal 32.0 - 36.0 [facility] Comment on above: Performed By: #### C BCDF #### [address] [address] MCV (RBC) [Entitic vol] 93 fL Normal 80 - 100 [facility] Comment on above: Performed By: #### C BCDF #### [address] [address] Monocytes (Bld) [#/Vol] 0.20 10*3/uL Normal 0.10 - 1.00 [facility] Comment on above: Performed By: #### C BCDF #### [address] [address] Monocytes/100 WBC (Bld) 3.8 % Normal 2.0 - 10.0 [facility] Comment on above: Performed By: #### C BCDF #### [address] [address] Neutrophils (Bld) [#/Vol] 5.00 10*3/uL Normal 1.20 - 7.70 [facility] Comment on above: Result Comment: Perc ent differential counts (%) should be interpreted in the context of the absolute cell counts (cells/L). Performed By: #### C BCDF #### [address] [address] Neutrophils/100 WBC (Bld) 79.9 % Normal 40.0 - 80.0 [facility] Comment on above: Performed By: #### C BCDF #### [address] [address] Nucleated RBC/100 WBC (Bld) [Ratio] 0.1 /100 WBC Normal [facility] Comment on above: Performed By: #### C BCDF #### [address] [address] Platelets (Bld) [#/Vol] 332 10*3/uL Normal 150 - 450 [facility] Comment on above: Performed By: #### C BCDF #### [address] [address] RBC (Bld) [#/Vol] 4.31 x10E12/L Normal 4.00 - 5.20 [facility] Comment on above: Performed By: #### C BCDF #### [address] [address] WBC (Bld) [#/Vol] 6.3 10*3/uL Normal 4.4 - 11.3 [facility] Comment on above: Performed By: #### C BCDF #### [place] [id number] COMPREHENSIVE PANELon 2020 Albumin [Mass/Vol] 4.4 g/dL Normal 3.4 - 5.0 [facility] Comment on above: Performed By: #### C MP #### [address] [address] ALP [Catalytic activity/Vol] 38 U/L Normal 33 - 110 [facility] Comment on above: Performed By: #### C MP #### [address] [address] ALT [Catalytic activity/Vol] 10 U/L Normal 7 - 45 [facility] Comment on above: Result Comment: Chitra ents treated with Sulfasalazine may generate falsely decreased results for ALT. Performed By: #### C MP #### [address] [address] Anion gap [Moles/Vol] 10 mmol/L Normal 10 - 20 [facility] Comment on above: Performed By: #### C MP #### [address] [address] AST [Catalytic activity/Vol] 15 U/L Normal 9 - 39 [facility] Comment on above: Performed By: #### C MP #### [address] [address] Bilirubin [Mass/Vol] 0.6 mg/dL Normal 0.0 - 1.2 [facility] Comment on above: Performed By: #### C MP #### [address] [address] Calcium [Mass/Vol] 9.1 mg/dL Normal 8.6 - 10.3 [facility] Comment on above: Performed By: #### C MP #### [address] [address] Chloride [Moles/Vol] 107 mmol/L Normal 98 - 107 [facility] Comment on above: Performed By: #### C MP #### [address] [address] Creatinine [Mass/Vol] 0.67 mg/dL Normal 0.50 - 1.05 [facility] Comment on above: Performed By: #### C MP #### [address] [address] GFR- AM. >60 Normal >60 [facility] Comment on above: Result Comment: CALC ULATIONS OF ESTIMATED GFR ARE PERFORMED USING THE MDRD STUDY EQUATION FOR THE IDMS-TRACEABLE CREATININE METHODS. CLIN CHEM 2007;53:766-72 Performed By: #### C MP #### [address] [address] GFR-NON AM. >60 Normal >60 [facility] Comment on above: Performed By: #### C MP #### [address] [address] Glucose [Mass/Vol] 87 mg/dL Normal 74 - 99 [facility] Comment on above: Performed By: #### C MP #### [address] [address] HCO3 (Bld) [Moles/Vol] 25 mmol/L Normal 21 - 32 [facility] Comment on above: Performed By: #### C MP #### [address] [address] Potassium [Moles/Vol] 3.8 mmol/L Normal 3.5 - 5.3 [facility] Comment on above: Performed By: #### C MP #### [address] [address] Protein [Mass/Vol] 6.9 g/dL Normal 6.4 - 8.2 [facility] Comment on above: Performed By: #### C MP #### [place] [address] Sodium [Moles/Vol] 138 mmol/L Normal 136 - 145 [facility] Comment on above: Performed By: #### C MP #### [place] [address] Urea nitrogen [Mass/Vol] 8 mg/dL Normal 6 - 23 [facility] Comment on above: Performed By: #### C MP #### [place] [address] CORONAVIRUS 2019 BY PCRon CORONAVIRUS 2019,PCR NOT DETECTED Normal Not Detected [facility] Comment on above: Result Comment: . This test has received FDA Emergency Use Authorization (EUA) and has been verified by [facility]. This test is only authorized for the duration of time that circumstances exist to justify the authorization of the emergency use of in vitro diagnostic tests for the detection of SARS-CoV-2 virus and/or diagnosis of COVID-19 infection under section 564(b)(1) of the Act, 21 U.S.C. 360bbb-3(b)(1), unless the authorization is terminated or revoked sooner. [facility] is certified under CLIA-88 as qualified to perform high complexity testing. Testing is performed in the [facility] laboratory located at [address] [place] [address]. SARS-CoV-2/Flu/RSV Multiplex Test: Fact sheet for providers: https://www.fda.gov/media/154911/download Fact sheet for patients: https://www.fda.gov/media/212272/download Performed By: #### C OV19 #### [place] [address] Lab Specimen Source Nasal, Nasopharyngeal Normal [facility] Comment on above: Performed By: #### C OV19 #### [place] [address] DATE OF SYMPTOM ONSET [[id number]]? [id number] [facility] Comment on above: Performed By: #### C OV19 #### [facility] [address] [place] [address] Covid 19 Resultson 1 Covid 19 Results NEGATIVE COVID-[address] Coronaviruses are common world-wide and are the cause of many common colds. SARS-COV2 is a new coronavirus that began circulating worldwide in 2019 so we are calling it COVID-19. It has been estimated that four out of five patients with COVID-19 will recover at home without the need for medical attention. Symptoms of COVID-19 may include cough, fever, shortness of breath, loss of taste or smell and other flu-like symptoms including chills, sore muscles, sore throat, and headache. Severe illness is more common in older people and people with other health problems such as high blood pressure, obesity, and immune system problems. If the test is positive, you have COVID-19. You will be contacted by the ordering physicians office and instructed to remain on home isolation, in accordance with CDC guidelines. You may also be contacted by the [facility] to see if any of your close contacts may have been exposed to the virus and need to quarantine. If the test is negative, you likely do not have COVID-19 at this time, but you still may have a different illness that can spread to other people (like Influenza, or the Flu) and could still be at risk for getting COVID-19. We recommend that you stay away from other people to limit the spread of illness until your symptoms are improving and you are fever-free for 24 hours without the use of fever lowering medications such as acetaminophen or ibuprofen. No test is 100% accurate so if you are still concerned you may have COVID-19, talk to your doctor about the need to continue to stay away from others. Medicines Unless your provider told you not to use the following: Acetaminophen (Tylenol and others) is generally safe. Anti-inflammatory medications, such as Ibuprofen (Advil or Motrin) or Naproxen (Aleve) can also be used. Vbzx-czc-indbauy cough and cold medicines can be used according to the instructions on the package. Some jbpt-coz-oqgwuoe medicines also contain acetaminophen. Make sure you are not taking more than your recommended dose. For those not hospitalized, there is no specific treatment available for this illness. Antibiotics do not treat Coronaviruses. Follow-Up Follow up with your doctor by scheduling a virtual visit or consider follow-up at one of our urgent care fever clinics. If you are having difficulty breathing, or are very weak and having difficulty standing, this is a medical emergency. Call 911 or have someone take you to the nearest emergency room immediately. If possible, wear a facemask. Additional guidance from the CDC for patients who tested POSITIVE for COVID-19 How to isolate: Isolate yourself in a specific room at home and limit your contact with others. Use a separate bathroom from other members of the household, when possible. Leave home only to get essential medical care. Do not go to work, school or public areas. Avoid using public transportation, ride-sharing, or taxis. Restrict contact with pets and other animals. If you must care for your pet or be around animals while you are sick, wash your hands before and after your interaction and wear a facemask. Make sure that shared spaces in the home have good airflow, such as by an air conditioner or an opened window, weather permitting. Personal Hygiene Procedures: Wear a face mask when in the same room as other people or pets. If a face mask interferes with your breathing, others should wear a mask when sharing space with you. Frequent hand-washing: wash your hands with soap and water for at least 20 seconds. If soap and water are not available, use alcohol-based hand hemstitcher. Avoid touching your eyes, nose, and mouth with unwashed hands. Household Hygiene Procedures: Avoid sharing personal household items such as dishes, glassware, cups, eating utensils, towels or bedding with other people or pets in your home. After use, these items should be washed with soap and hot water. Disinfect all high-touch surfaces every day with antibacterial cleaning solutions such as Lysol wipes, bleach, cleansers, etc. High-touch surfaces include tabletops, doorknobs, bathroom fixtures, toilets, phones, keyboards, tablets and bedside tables. Immediately clean any surfaces that may have blood, poop or body fluids on them, using antibacterial cleaning solutions such as Lysol wipes, bleach, cleansers, etc. If clothing or bedding come into contact with blood, poop or body fluids, they should be washed immediately. Follow the directions on the laundry detergent and clothing labels but hot water is recommended when possible. Stopping home isolation precautions: If possible, consult your doctor before stopping home isolation precautions. According to the CDC, you can discontinue home isolation precautions when you have met both of these criteria: Your fever and respiratory symptoms have been gone for 24 hours without the use of any medicines like ibuprofen (Motrin) and acetaminophen (Tylenol). It has been at least 10 days since your symptoms first appeared. If you are immunosuppressed OR you were admitted to the hospital for this, you should wait until it has been 14 days since your symptoms first appeared. Guidelines for Those Living With and/or Caring For Persons with COVID-19: Read and follow all the recommendations outlined in this handout. Do not permit visitors in the home unless there is an essential need. Wear a facemask when in the same room as the patient. Wear a facemask and gloves (disposable if available) when you touch or have contact with the patient's blood, poop, or body fluids including saliva, phlegm, nasal mucus, vomit or urine. Clean or throw away facemasks and gloves after use and wash your hands with soap and water. The person with COVID-19 is considered contagious 48 hours prior to symptoms beginning (or starting with the day of the positive test if they have no symptoms) for a total of 10 days. In accordance with the CDC and the [facility], we recommend a 14-day quarantine period as the best option for anyone exposed to COVID-19. However, a 10-day period is acceptable but the person will need to avoid the following settings for a full 14 days: congregate living facilities (nursing homes, assisted living, group homes, jails), healthcare facilities, schools, contact with people at high risk of severe illness, and high density places (such as some workplaces) where social distancing can be hard to maintain. In addition, the person will need to self-monitor for fever and symptoms of COVID-19 for the full 14 days. In accordance with the CDC, anyone who meets the following criteria below does not need to quarantine following an exposure: Are fully vaccinated (i.e., =2 weeks following receipt of the second dose in a 2-dose series, or =2 weeks following receipt of one dose of a single-dose vaccine) Are within 3 months following receipt of the last dose in the series Have remained asymptomatic since the current COVID-19 exposure Additional resources: [facility] COVID Hotline at 8-954-7WTVVDL ( ). COVID-19 Careline at (available 24 hours per day, seven days a week if you or a loved one is experiencing anxiety related to the coronavirus pandemic). Clinical research opportunities: is conducting research studies to develop better testing and treatments for COVID. Do you want any information on how to participate Call [phone]. Websites: hospitals.org or www.CDC.gov Follow My Health / My Care (for other test results): Letter revised 01/03/2021 Electronic Signatures: [employer] (ADMIN) (Signature pending) Authored Last Updated: 16-Jan-2021 11:12 by [employer], [employer] (ADMIN) Normal [facility] LIPASEon 01-16-2021 Lipase [Catalytic activity/Vol] 9 U/L Normal 9 - 82 [facility] Comment on above: Result Comment: Shayy puncture immediately after or during the administration of Metamizole may lead to falsely low results. Testing should be performed immediately prior to Metamizole dosing. C-ymvzon-t-benzoquinone imine (metabolite of Acetaminophen) will generate erroneously low results in samples for patients that have taken toxic doses of acetaminophen. Performed By: #### L IPAS #### [facility] [address] [place] [address] OCCULT BLOOD TEST,STOOLon Lab Specimen Source Stool Normal [facility] Comment on above: Order Comment: TEST OCCULT BLOOD TEST,STOOL WAS CANCELLED, 01/18/2021 07:21 NO SPECIMEN RECEIVED IN LAB. Performed By: #### O CCB1 #### [facility] [address] [place] [address] Provider Note - ED v2on Provider Note - ED v2 Provider Note - ED v2: Chart Review: ED NOTES ED NOTES: ====HPI==== Patient had black stool for 2 days and she also had vomiting for a few days with coffee-ground emesis this morning. She denies any history of GI bleed. She is 6 weeks and 3 days . She has an OB doctor in [place]. She has had no fevers or chills. No cough. No shortness of breath. No abdominal pain. No other complaints on review of systems. Character: Severity: Mild to moderate Exacerbated by: Nothing Improved by: Nothing Recently seen by: Denies ====Review of Systems==== 10 point system review is negative ====Physical Exam==== Constitutional/General: Alert and oriented x3, well appearing, nontoxic, and in NAD. Head: Normocephalic and atraumatic. Eyes: PERRL, EOMI, conjunctive normal, sclera nonicteric, subconjunctival layer is pink. Mouth: Oropharynx clear, handling secretions, no trismus, no asymmetry of the posterior oropharynx or uvular edema Neck: Supple, full ROM, non tender to palpation in the midline, no stridor, no crepitus, no meningeal signs. Trachea at midline. Respiratory: Lungs clear to auscultation bilaterally, no wheezes, rales, or rhonchi, not in respiratory distress. Cardiovascular: Regular rate, regular rhythm, no murmurs, gallops, or rubs, 2+ distal pulses. Chest: normal chest wall movement GI: Abdomen soft, nontender, nondistended, + BS, no organomegaly, no palpable masses, no rebound, guarding, or rigidity. Musculoskeletal: Moves all extremities x4, warm and well perfused, no clubbing, cyanosis, or edema, cap refill <3 seconds Integument: Skin warm and dry, no rashes. Lymphatic: No lymphadenopathy noted. Neurologic: GCS 15, no focal deficits, symmetric strength 5/5 in the upper and lower extremities bilaterally. Psychiatric: Normal affect. ====ED Course and Medical Decision Making==== She has unremarkable physical exam. She has been here for about 4 hours she has had no further stool output and no vomiting. She got Zofran and normal saline she feels great and is walking around without any other symptoms. She was able to eat a full meal. We will send her home with Niya. She is requesting discharge. I discussed the case with the hospitalist who also agreed the patient could go home. I have asked her to return if worse or if any new symptoms develop or she has any worsening bleeding. All her questions were answered. Portions of this note were dictated by speech recognition. An attempt at proof reading was made to minimize errors. 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 Please call if questions.. HISTORY OF PRESENTING ILLNESS ARIELA is a 20 year old Female and was seen by me at 16-Jan-2021 09:28 for a chief complaint of vomiting blood (started vomiting blood today at 0630, multiple episodes + dark per "like coffee grounds" st "feel out of it" also c/o dark, tarry stool this am Pt is 6 weeks sts vomiting 2-3 days ago)(1). Triage Information: Most recent Vital Sign Value Date Temp (F): 98.3 01-16-2021 09:32 Temp (C): 36.8 01-16-2021 09:32 Heart Rate (beats/min): 75 01-16-2021 09:32 Respirations (breaths/min): 17 01-16-2021 09:32 SpO2 (%): 97 01-16-2021 09:32 BP Systolic (mm Hg): 104 01-16-2021 09:32 BP Diastolic (mm Hg): 64 01-16-2021 09:32 PAST MEDICAL HISTORY ATTESTATION: I have reviewed and confirmed nurse's/medic's notes for patient's medications, allergies, and medical, surgical, family and social history ALLERGIES/INTOLERANCES: Allergy Allergen: Tamiflu Type: Drug Reaction: Other HEALTH HISTORY: No documented data. OUTPATIENT MEDICATIONS: Home Medications Review Status for Reconciliation: Complete Med Status: Patient Currently Takes Medications Drug Name: Vitamin B6 50 mg oral tablet Instructions: 1 tab(s) orally once a day Drug Name: Multivitamins oral tablet (obsolete) Instructions: 1 tab(s) orally once a day Drug Name: folic acid 1 mg oral tablet Instructions: 1 tab(s) orally once a day Drug Name: Zofran 4 mg oral tablet Instructions: 1 tab(s) orally every 8 hours SIGNIFICANT EVENTS: No documented data. 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 Data Referenced From "Triage - ED" 16-Jan-2021 09:32 Normal [facility] Risk Screen - Adult Emergenc yon 01-16-2021 Risk Screen - Adult Emergency Preferred Language: Preferred Language: Preferred Language for Discussing Health Care (patient/designee)French Advanced Directives: Advance Directive/DNRno Family Violence Adult: Abuse Screen: Are you or have you been threatened or abused physically, emotionally, or sexually by anyoneno Learning Assessment (Patient): Learning Assessment (Patient): Patient is Able to be Assessed for Learningyes Factors Influencing Readiness to Learnacuteness of illness Factors that Impact Ability to Learnacuteness of illness Devices/Methods Used to Communicatenone Learning Preferencesindividual instruction Cultural Considerationsnone Developmental Considerationsnone Taoist Considerationsnone Learning Assessment (Other Learner): Learning Assessment (Other Learner): Other learner availableno Pressure Injury/TB/Substance: Pressure Injury: Do you have a coughno Substance Use Current or Former Historynever: Cigarette/Tobacco, e-Cigarette/Vaping, Alcohol YES: Street Drugs Drug Usedaily Street Drug/Medication/ Inhalant Use Additional [facility] Admission Risk Screen: Significant IndicatorsComplete CAGE: CAGE: Is this an injured patient at a Trauma Center ([facility]/[place]/ [place]): no Electronic Signatures: Becki Greer (N MGR) (Signed 16-Jan-2021 09:39) Authored: Preferred Language, Advanced Directives, Family Violence Adult, Learning Assessment (Patient), Learning Assessment (Other Learner), Pressure Injury/TB/Substance, Pressure Injury, CAGE Last Updated: 16-Jan-2021 09:39 by Becki Greer (N MGR) [facility] Triage - EDon 01-16-2021 Triage - ED Quick Triage: Are You yes Are You Currently Breastfeedingno The patient and/or guardian verbally acknowledges placement for services into the following (when Urgent Care Service hours are operating):emergency department Chart Review: ARRIVAL INFORMATION Mode of Arrival: private vehicle CHIEF COMPLAINT ARIELA CRANE is a Female patient with a chief complaint of vomiting blood (started vomiting blood today at 0630, multiple episodes + dark per "like coffee grounds" st "feel out of it" also c/o dark, tarry stool this am Pt is 6 weeks sts vomiting 2-3 days ago). Triage Date/Time: 16-Jan-2021 09:32 BENEDICTO: 3 Pain Rating (0-10): 0 = None Vital Signs: Temperature: 98.3F ( 36.8C) taken oral Blood Pressure: 104/64 Mean: Heart Rate: 75 Respiratory Rate: 17 Pulse Oximetry: 97% on room air, no respiratory support. Height: 5 feet 5 inches. 165.1 CM Weight: 123.6 pounds. Calculated 56.1 kg. Calculated BMI (kg/m2): 20.581 Calculated BSA (m2) 1.60 [place] Coma Scale: Best Eye Response: (E4) spontaneous Best Motor Response: (M6) obeys commands Best Verbal Response: (V5) oriented [place] Score: 15 Last menstrual period: 07-Nov-2020 Patient has homicidal thoughts: no Symptoms Are POSITIVE For: nausea, rectal blood and vomiting. Symptoms Are Negative For: anorexia, constipation, diaphoresis, diarrhea, distention and fever. Risk Screens Suicide Risk Screen In the Past Month: Have you wished you were or wished you could go to sleep and not wake up no In the Past Month: Have you had any actual thoughts of killing yourself no In Your Lifetime: Have you ever done anything, started to do anything, or prepared to do anything to end your life no Dee Fall Scale Screening Has the patient fallen before (or is the patient in the ED as a result of a fall) has not had a fall Does the patient have an impaired gait does not have impaired gait Is the patient cognitively impaired not cognitively impaired Interventions: Dee Fall Interventions: LOW INTERVENTIONS: *patient oriented to surroundings and call system, * patient/family falls education completed and documented, *patients fall status communicated during bedside handoff, *whiteboard updated, *mode of toileting discussed with patient, *bed in low position with brakes locked, *call light in reach, * non-skid footwear TRAVEL HISTORY Travel History Coronavirus Screening: no exposure or symptoms Travel Exposure History: NO travel to International locations in the past 30 days PAIN Pain Scale Used: KEYONNA Pain Rating (0-10): 0 = None Past Medical History: Past Medical History Reviewedyes Electronic Signatures: Becki Greer (N MGR) (Signed 16-Jan-2021 09:39) Entered: Risk Screens, Pain, Travel History, Chart Review, Scores, Past Medical History Authored: Quick Triage, Risk Screens, Pain, Travel History, Chart Review, Scores, Past Medical History Last Updated: 16-Jan-2021 09:39 by Becki Greer (N MGR) Normal [facility] UA MICROSCOPICon 01-16-2021 MUCUS 4+ /LPF Normal [facility] Comment on above: Performed By: #### C MP #### [place] [address] RBC 1 /HPF Normal 0-5 [facility] Comment on above: Performed By: #### C MP #### [place] [address] SQUAMOUS EPITH. CELLS 4 /HPF Normal [facility] Comment on above: Performed By: #### C MP #### [place] [address] TRANSITIONAL EPITH.CELLS <1 Normal [facility] Comment on above: Performed By: #### C MP #### [place] [address] WBC 2 /HPF Normal 0-5 [facility] Comment on above: Performed By: #### C MP #### [place] [address] URINALYSISon 01-16-2021 Appearance (U) HAZY Normal CLEAR [facility] Comment on above: Performed By: #### U A #### [place] [address] Bilirubin (U) [Mass/Vol] Negative Normal NEGATIVE [facility] Comment on above: Performed By: #### U A #### [address] [address] BLOOD Negative Normal NEGATIVE [facility] Comment on above: Performed By: #### U A #### [address] [address] Color (U) Yellow Normal STRAW,YELLOW [facility] Comment on above: Performed By: #### U A #### [address] [address] Glucose [Mass/Vol] Negative Normal NEGATIVE [facility] Comment on above: Performed By: #### U A #### [place] [id number] Ketones Ql (U) Negative Normal NEGATIVE [facility] Comment on above: Performed By: #### U A #### [place] [address] Leukocyte esterase Test strip Ql (U) SMALL(1+) Abnormal NEGATIVE [facility] Comment on above: Performed By: #### U A #### [place] [address] Nitrite Ql (U) Negative Normal NEGATIVE [facility] Comment on above: Performed By: #### U A #### [address] [address] pH (Bld) 7.0 Normal 5.0 - 8.0 [facility] Comment on above: Performed By: #### U A #### [place] [id number] Protein (U) [Mass/Vol] 30(1+) Abnormal NEGATIVE [facility] Comment on above: Performed By: #### U A #### [place] [id number] Specific gravity (U) [Rel density] 1.024 Normal 1.005 - 1.035 [facility] Comment on above: Performed By: #### U A #### [place] [id number] Urobilinogen Qn (U) 2.0 mg/dL High 0.0 - 1.9 [facility] Comment on above: Result Comment: Due to a manufacturing issue, low positive urobilinogen results may be falsely positive. Correlate with urine bilirubin and additional clinical/laboratory findings to assess the risk of hemolytic anemia or liver disease. If clinically indicated, repeat testing with an alternate method is available by contacting the laboratory within 24 hours. . Some pigments and medications may cause a false positive urobilinogen. Performed By: #### U A #### [facility] [address] [place] [address] Vital Signs Date Time Vital Sign Value Performing Clinician Facility 06-18-2025 14:44-0400 Body height 162.6 cm Arabella Plotts SUPERVISOR [employer].CNM Work Phone: [facility] 06-18-2025 14:44-0400 Body mass index (BMI) [Ratio] 21.8 kg/m2 Arabella Plotts [employer]PER[employer].CNM Work Phone: [facility] 06-18-2025 14:44-0400 Body weight 57.61 kg Arabella Plotts [employer]PER[employer].CNM Work Phone: [facility] 06-18-2025 14:44-0400 Diastolic blood pressure 54 mm[Hg] Arabella Plotts SUPERVIS[employer].CNM Work Phone: [facility] 06-18-2025 14:44-0400 Systolic blood pressure 92 mm[Hg] Arabella Plotts SUPERVIS[employer].CNM Work Phone: [facility] 06-17-2024 15:33-0400 Body height 163.2 cm Arabella Plotts SUPERVIS[employer].CNM Work Phone: [facility] 06-17-2024 15:33-0400 Body mass index (BMI) [Ratio] 19.89 kg/m2 Arabella Plotts [employer]PER[employer].CNM Work Phone: [facility] 06-17-2024 15:33-0400 Body weight 52.98 kg Arabella Plotts SUPER[employer].CNM Work Phone: [facility] 06-17-2024 15:33-0400 Diastolic blood pressure 60 mm[Hg] Arabella Shaffer SUPERVIS[employer].CNM Work Phone: [facility] 06-17-2024 15:33-0400 Systolic blood pressure 100 mm[Hg] Arabella Shaffer SUPERVIS[employer].CNM Work Phone: [facility] 06-30-2023 10:35-0400 Body height 165.1 cm [facility] 06-30-2023 10:35-0400 Body mass index (BMI) [Ratio] 19.1 kg/m2 [facility] 06-30-2023 10:35-0400 Body temperature 97.3 [degF] [facility] 06-30-2023 10:35-0400 Body weight 52.3 kg [facility] 06-30-2023 10:35-0400 Diastolic blood pressure 63 mm[Hg] [facility] 06-30-2023 10:35-0400 Heart rate 66 /min [facility] 06-30-2023 10:35-0400 Respiratory rate 14 /min [facility] 06-30-2023 10:35-0400 SaO2% (BldA) [Mass fraction] 99 % [facility] 06-30-2023 10:35-0400 Systolic blood pressure 130 mm[Hg] [facility] 06-26-2023 14:12-0400 Body temperature 99.39 [degF] Genny Athy PA-C Work Phone: [facility] 06-26-2023 14:12-0400 Body weight 55.34 kg Genny Athy PA-C Work Phone: [facility] 06-26-2023 14:12-0400 Diastolic blood pressure 75 mm[Hg] Genny Athy PA-C Work Phone: [facility] 06-26-2023 14:12-0400 Heart rate 102 /min Genny Athy PA-C Work Phone: [facility] 06-26-2023 14:12-0400 Respiratory rate 18 /min Genny Athy PA-C Work Phone: [facility] 06-26-2023 14:12-0400 SaO2% (BldA) [Mass fraction] 98 % Genny VOGT-Rudi Work Phone: [facility] 06-26-2023 14:12-0400 Systolic blood pressure 109 mm[Hg] Genny Barrios PA-C Work Phone: [facility] 03-29-2023 08:11-0400 Body height 164 cm Arabella Plotts SUPER[employer].CNM Work Phone: [facility] 03-29-2023 08:11-0400 Body weight 53.98 kg Arabella Plotts SUPERVIS[employer].CNM Work Phone: [facility] 03-29-2023 08:11-0400 Diastolic blood pressure 56 mm[Hg] Arabella Plotts SUPERVISOR [employer].CNM Work Phone: [facility] 03-29-2023 08:11-0400 Systolic blood pressure 92 mm[Hg] Arabella Plotts SUPERVIS[employer].CNM Work Phone: [facility] 09-23-2022 09:43-0500 Body temperature 98.4 [degF] Melvin Pendlebury SUPERVISOR [employer].TRUST MANAGER ASSISTANT Work Phone: [facility] 09-23-2022 09:43-0500 Body weight 55.79 kg Melvin Pendleiqra SUPER[employer]OR [employer].TRUST MANAGER ASSISTANT Work Phone: [facility] 09-23-2022 09:43-0500 Diastolic blood pressure 60 mm[Hg] Melvin Pendlebury SUPERVISOR [employer].TRUST MANAGER ASSISTANT Work Phone: [facility] 09-23-2022 09:43-0500 Heart rate 100 /min Melvin Pendlebury SUPER[employer]OR [employer].TRUST MANAGER ASSISTANT Work Phone: [facility] 09-23-2022 09:43-0500 Respiratory rate 16 /min Melvin Pendlebury SUPERVISOR [employer].TRUST MANAGER ASSISTANT Work Phone: [facility] 09-23-2022 09:43-0500 SaO2% (BldA) [Mass fraction] 99 % Melvin Pendlebury SUPERVISOR [employer].TRUST MANAGER ASSISTANT Work Phone: [facility] 09-23-2022 09:43-0500 Systolic blood pressure 102 mm[Hg] Melvin Marie SUPERVISOR [employer].TRUST MANAGER ASSISTANT Work Phone: [facility] 03-30-2022 11:35-0400 Body weight 55.34 kg Arabella Plottamara SUPERVISOR [employer].CNM Work Phone: [facility] 03-30-2022 11:35-0400 Diastolic blood pressure 70 mm[Hg] Arabella Starkts SUPERVISOR [employer].CNM Work Phone: [facility] 03-30-2022 11:35-0400 Systolic blood pressure 100 mm[Hg] Arabella Plotts SUPERVISOR [employer].CNM Work Phone: [facility] 01-03-2022 11:28-0400 Body weight 59.42 kg Arabellashannan Shaffer SUPERVISOR [employer].CNM Work Phone: [facility] 01-03-2022 11:28-0400 Diastolic blood pressure 58 mm[Hg] Arabella Starkts SUPERVISOR [employer].CNM Work Phone: [facility] 01-03-2022 11:28-0400 Systolic blood pressure 90 mm[Hg] Arabella Starkts SUPERVISOR [employer].CNM Work Phone: [facility] Encounters Encounter Date Encounter Type Care Provider Facility Start: 06-18-2025 End: 06-18-2025 Patient encounter procedure Arabella Shaffer [employer].CNM Work Phone: OB/Gynecology Comment on above: Encounter for gyneco logical examination (general) (routine) without abnormal findings (Primary Dx); Screening for cervical cancer; Irregular periods/menstrual cycles Start: 06-18-2025 End: 06-18-2025 Patient encounter status Arabella Shaffer [employer]PER[employer].CNM Work Phone: [facility] Start: 06-18-2025 End: 06-18-2025 ambulatory ARABELLA SHAFFER Facility:[facility] Start: 06-18-2025 Encounter for gynecological examination (general) (routine) without abnormal findings ARABELLA SHAFFER [facility] Start: 06-17-2024 End: 06-17-2024 Patient encounter procedure Arabella Shaffer [employer]PER[employer].CNM Work Phone: OB/Gynecology Comment on above: Encounter for gyneco logical examination (general) (routine) without abnormal findings (Primary Dx); Abnormal weight loss; Irregular periods/menstrual cycles Start: 06-17-2024 End: 06-17-2024 Patient encounter status Arabella Shaffer SUPERVIS[employer].CNM Work Phone: [facility] Start: 06-12-2024 End: 06-12-2024 ambulatory Arabella Shaffer [employer].CNM Work Phone: OB/Gynecology Comment on above: Menstrual Cycle Start: 11-08-2023 End: 11-08-2023 Patient encounter procedure [facility] Sus[facility] Work Phone: Start: 11-08-2023 End: 11-08-2023 ambulatory [facility] Work Phone: Start: 10-18-2023 End: 10-18-2023 Subsequent hospital visit by physician [facility] Work Phone: Radiology Comment on above: Pain [R52] Start: 06-30-2023 End: 06-30-2023 Emergency department patient visit Andreas Jihan Facility:[facility] Start: 06-30-2023 End: 06-30-2023 Emergency department patient visit [facility] Work Phone: Start: 06-26-2023 End: 06-26-2023 Patient encounter procedure Genny Barrios PA-C Work Phone: [facility] Comment on above: Pain, dental (Primar y Dx) Start: 04-01-2023 ambulatory Barbie frey MD Work Phone: Psychology Comment on above: [facility] Start: 04-01-2023 E-mail encounter fro m caregiver Barbie Valdivia MD Work Phone: [facility] Start: 03-29-2023 End: 03-29-2023 Patient encounter procedure Arabella Shaffer [employer]PER[employer].CNM Work Phone: OB/Gynecology Comment on above: Encounter for gyneco logical examination (general) (routine) without abnormal findings (Primary Dx); Anxiety; Depression, unspecified depression type; Vaginal discharge Start: 03-29-2023 End: 03-29-2023 Patient encounter status Arabella Mitamara [employer]PER[employer].CNM Work Phone: OB/Gynecology Start: 11-16-2022 Refill Arabella Bebo s [employer].CNM Work Phone: OB/Gynecology Comment on above: Refill Request Start: 09-23-2022 End: 09-23-2022 Patient encounter procedure Melvin Marie SUPERVISOR [employer].TRUST MANAGER ASSISTANT Work Phone: [facility] Comment on above: Viral illness (Prima ry Dx) Start: 06-06-2022 Refill Arabella Bebo s [employer].CNM Work Phone: OB/Gynecology Comment on above: Refill Request Start: 03-30-2022 End: 03-30-2022 Patient encounter procedure Arabella Shaffer [employer]PER[employer].CNM Work Phone: OB/Gynecology Comment on above: Screening for cervic al cancer (Primary Dx); Encounter for screening for human papillomavirus (HPV); Vaginal discharge Start: 01-03-2022 ambulatory Arabella Bebo emi [employer].CNM Work Phone: OB/Gynecology Comment on above: PAP Start: 01-03-2022 E-mail encounter fro m caregiver Arabella Shaffer APRN.CNJair Work Phone: [facility] Start: 01-03-2022 End: 01-03-2022 Patient encounter procedure Arabella Shaffer SUPERVIS[employer].CNM Work Phone: OB/Gynecology Comment on above: Encounter for initia l prescription of contraceptive pills (Primary Dx) Start: 01-12-2021 Patient requested procedure Arabella Shaffer SUPERVIS[employer].CNM Work Phone: [facility] Work Phone: Procedures Date Procedure Procedure Detail Performing Clinician Start: 11-08-2023 MRI of lower extremity Start: 10-18-2023 Radex toe minimum 2 views Katelin Franklin APRN.TRUST MANAGER ASSISTANT Work Phone: Start: 11-27-2019 Adult depression screening assessment Arabella Shaffer APRN.CNM Work Phone: Plan of Treatment Date Care Activity Detail Author Start: 07-06-2031 Urine microalbumin profile [facility] Start: 06-24-2026 End: 06-24-2026 Patient encounter procedure 06/24/2026 10:45 AM EDT Office Visit OB/Gynecology [address] [place] [address] Arabella Shaffer APRN.CNM [address] [place] [address] annual OB/Gynecology Comment on above: annual Start: 06-18-2025 End: 06-18-2025 Patient encounter procedure 06/18/2025 2:45 PM EDT Office Visit OB/Gynecology [address] [place] [address] Arabella Shaffer APRN.ELOISA [address] [place] [address] Annual OB/Gynecology Comment on above: Annual Start: 06-14-2025 Influenza vaccination Influenza Vacc ine (#1) [facility] Start: 03-30-2025 PAP TESTING PAP TESTING [facility] Start: 03-30-2025 Screening for malign ant neoplasm of cervix Cervical Cancer Screening [facility] Start: 06-17-2024 End: 06-17-2024 Patient encounter procedure 06/17/2024 3:30 PM EDT Office Visit OB/Gynecology [address] [place] [address] Arabella Shaffer APRN.CNM [address] [address] Annual/ Discuss periods OB/Gynecology Comment on above: Annual/ Discuss meagan ods Start: 06-17-2024 End: 09-16-2024 Prolactin [Mass/volume] in Serum or Plasma [facility] Comment on above: Expected: 06/17/2024 , Expires: 09/16/2024 Start: 06-17-2024 End: 09-16-2024 Thyrotropin [Units/volume] in Serum or Plasma [facility] Work Phone: Comment on above: Expected: 06/17/2024 , Expires: 09/16/2024 Start: 06-14-2024 Covid-19 Vaccine ( season) Covid-19 Vaccine () [facility] Start: 06-14-2024 Influenza vaccination Influenza Vacc ine (#1) [facility] Start: 01-14-2024 PAP TESTING PAP TESTING [facility] Start: 06-14-2023 Covid-19 Vaccine () Covid-19 Vaccine () [facility] Start: 06-14-2023 Influenza vaccination [facility] Start: 10-14-2022 DEPRESSION ASSESSMENT [facility] Start: 09-23-2022 End: 10-07-2022 Influenza virus A and B RNA and SARS-CoV-2 (COVID-19) N gene panel - Respiratory specimen by LEONEL with probe detection COVID WITH FLUA+B, ROUTINE Microbiology Routine Viral illness Expected: 09/23/2022, Expires: 10/07/2022 [facility] Work Phone: Comment on above: Expected: 09/23/2022 , Expires: 10/07/2022 Start: 06-14-2022 Influenza vaccination C [facility] Start: 04-21-2022 CHLAMYDIA SCREENING (18-24) CHLAMYDIA SCREENING (18-24) [facility] Start: 04-21-2022 GC (GONORRHEA) SCREENING (18-24) GC (GONORRHEA) SCREENING (18-24) [facility] Start: 04-12-2022 Influenza vaccination INFLUENZA (#1) [facility] Comment on above: Postponed from 06/14 (Declined at this time) Start: 10-14-2021 DEPRESSION ASSESSMENT DEPRESSION ASS ESSMENT [facility] Start: 11-27-2020 Adult depression screening assessment DEPRESSION SCREENING [facility] Start: 2017 Anxiety Screening Anxiety Screening [facility] Start: 2017 Depression Screening Depression Scre ening [facility] Start: 2015 Meningococcal B Vaccine: Consider Based On Risk (1 of 2 - Patient Seeks Protection) Meningococcal B Vaccine: Consider Based On Risk (1 of 2 - Patient Seeks Protection) [facility] Start: 2014 HPV Vaccine (1 - 3-d ose series) HPV Vaccine (1 - 3-dose series) [facility] Start: 2013 PEDS TO ADULT TRANSITION ANNUAL ASSESSMENT PEDS TO ADULT TRANSITION ANNUAL ASSESSMENT [facility] Start: 2011 PEDS TO ADULT TRANSITION INITIAL DISCUSSION PEDS TO ADULT TRANSITION INITIAL DISCUSSION [facility] Start: 2010 HPV VACCINE (1 - 2-d ose series) HPV VACCINE (1 - 2-dose series) [facility] Start: 2009 MENINGOCOCCAL B: Consider based on risk (1 of 2 - Risk Bexsero 2-dose series) MENINGOCOCCAL B: Consider based on risk (1 of 2 - Risk Bexsero 2-dose series) [facility] Start: 02-16-2008 HPV VACCINE (1 - 2-d ose series) HPV VACCINE (1 - 2-dose series) [facility] Start: 02-16-2004 COVID-19 VACCINE (#1) COVID-19 VACCI NE (#1) [facility] Start: 02-16-2004 COVID-19 VACCINE (1) COVID-19 VACCIN E (1) [facility] Start: 1999 COVID-19 VACCINE (#1) COVID-19 VACCI NE (#1) [facility] Microscopic observat ion [Identifier] in Vaginal fluid by Gram stain BACT/EULALIA VAG GRAM STAIN Microbiology Routine Vaginal discharge Ordered: 03/30/2022 [facility] Work Phone: Comment on above: Ordered: 03/30/2022 Microscopic observat ion [Identifier] in Vaginal fluid by Gram stain BACT/EULALIA VAG GRAM STAIN Microbiology Routine Encounter for gynecological examination (general) (routine) without abnormal findings Vaginal discharge 03/29/2023 9:05 AM EDT [facility] Work Phone: PAP FLUID CERVICAL SCREENING PAP FLUID CERVICAL SCREENING Lab Routine Screening for cervical cancer Encounter for screening for human papillomavirus (HPV) Ordered: 03/30/2022 [facility] Work Phone: Comment on above: Ordered: 03/30/2022 PAP TEST PAP TEST Lab Catina jay Screening for cervical cancer 06/18/2025 3:24 PM EDT [facility] Work Phone: Patient Education ED Dental Cavity [facility] Work Phone: Patient referral [facility] Work Phone: [facility] Immunizations Immunization Date Immunization Notes Care Provider Fa cili 09-04-2021 measles, mumps and rubella virus vaccine [facility] 07-06-2021 Diptheria,Tetanus,Pe rtus sis Vaccine [facility] 07-06-2021 tetanus toxoid, redu angel diphtheria toxoid, and acellular pertussis vaccine, adsorbed Arabella Shaffer [employer]CNM Work Phone: [facility] 06-04-2016 meningococcal polysaccharide (groups A, C, Y and W-135) diphtheria toxoid conjugate vaccine (MCV4P) Arabella Shaffer [employer]CNM Work Phone: [facility] 07-11-2011 varicella virus vaccine Cour chrystal Shaffer [employer].CNM Work Phone: [facility] Work Phone: 06-21-2010 Meningococcal, MCV4, unspecified conjugate formulation(groups A, C, Y and W-135) Arabella Shaffer [employer].CNM Work Phone: [facility] Work Phone: 06-21-2010 tetanus toxoid, redu angel diphtheria toxoid, and acellular pertussis vaccine, adsorbed Arabella Starkts [employer]CNM Work Phone: [facility] Work Phone: 01-12-2004 diphtheria, tetanus toxoids and acellular pertussis vaccine Arabella Plotts [employer]CNM Work Phone: [facility] Work Phone: 01-12-2004 measles, mumps and rubella virus vaccine Arabella Plotts [employer].CNM Work Phone: [facility] Work Phone: 01-12-2004 poliovirus vaccine, inactivated Arabella Plotts [employer].CNM Work Phone: [facility] Work Phone: 10-18-2000 pneumococcal conjuga te vaccine, 7 valent Arabella Plotts [employer]CNM Work Phone: [facility] Work Phone: 08-27-2000 pneumococcal conjuga te vaccine, 7 valent Arabella Plotts [employer].CNM Work Phone: [facility] Work Phone: 08-27-2000 varicella virus vaccine Cour tney Plotts [employer].CNM Work Phone: [facility] Work Phone: 06-07-2000 diphtheria, tetanus toxoids and acellular pertussis vaccine Arabella Plotts [employer].CNM Work Phone: [facility] Work Phone: 06-07-2000 haemophilus influenz ae type b vaccine, HbOC conjugate Arabella Starkts [employer].CNM Work Phone: [facility] Work Phone: 03-13-2000 measles, mumps and rubella virus vaccine Arabella Plotts [employer].CNM Work Phone: [facility] Work Phone: 03-13-2000 poliovirus vaccine, inactivated Arabella Plotts [employer].CNM Work Phone: [facility] Work Phone: 1999 hepatitis B vaccine, pediatric or pediatric/adolescent dosage Arabella Plotts [employer].CNM Work Phone: [facility] Work Phone: 1999 diphtheria, tetanus toxoids and acellular pertussis vaccine Arabella Plotts [employer].CNM Work Phone: [facility] Work Phone: 1999 haemophilus influenz ae type b vaccine, HbOC conjugate Arabella Plotts [employer].CNM Work Phone: [facility] Work Phone: 1999 diphtheria, tetanus toxoids and acellular pertussis vaccine Arabella Plotts [employer].CNM Work Phone: [facility] Work Phone: 1999 haemophilus influenz ae type b vaccine, HbOC conjugate Arabella Plotts [employer].CNM Work Phone: [facility] Work Phone: 1999 poliovirus vaccine, inactivated Arabella Plotts [employer].CNM Work Phone: [facility] Work Phone: 1999 diphtheria, tetanus toxoids and acellular pertussis vaccine Arabella Plotts [employer].CNM Work Phone: [facility] Work Phone: 1999 haemophilus influenz ae type b vaccine, HbOC conjugate Arabella Plotts [employer].CNM Work Phone: [facility] Work Phone: 1999 poliovirus vaccine, inactivated Arabella Plotts [employer].CNM Work Phone: [facility] Work Phone: 1999 hepatitis B vaccine, pediatric or pediatric/adolescent dosage Arabella Plotts [employer].CNM Work Phone: [facility] Work Phone: 1999 hepatitis B vaccine, pediatric or pediatric/adolescent dosage Arabella Plotts [employer].CNM Work Phone: [facility] Work Phone: Payers Date Payer Category Payer Self-pay [id number] 2022 Medicaid [id number] 2021 Medicaid [employer] MEDICA[employer] [id number] 2021-Present [phone] [address] [place] [address] Medicaid [id number] 2021 Medicaid [id number] Unknown [employer] [id number] Unknown [employer] MC D *DO NOT USE* [id number] Unknown [id number] Unknown [id number] Social History Date Type Detail Facility Start: 01-03-2022 End: 09-23-2022 Tobacco smoking status NHIS Ex-smoker [facility] Start: 01-03-2022 End: 09-23-2022 Tobacco use and exposure Smokeless tobacco non-user [facility] Start: 01-03-2022 End: 06-18-2025 Alcohol intake Current non-drinker of alcohol (finding) [facility] Start: 11-27-2019 History SDOH Alcohol Frequency 2 [facility] Start: 11-27-2019 History SDOH Alcohol Std Drinks 1 [facility] Start: 11-27-2019 History SDOH Social Connections Phone 5 [facility] Start: 11-27-2019 History SDOH Social Connections Holiness 3 [facility] Start: 11-27-2019 History SDOH Social Connections Living 7 [facility] Start: 11-27-2019 Education 15 [facility] Start: 2000 Sex Assigned At Female [facility] History of tobacco use Current smoker [facility] Start: 11-27-2019 End: 06-18-2025 History of Social function [facility] Start: 11-27-2019 End: 06-18-2025 Social connection and isolation panel [facility] Do you belong to any clubs or organizations such as mandaeism groups, unions, fraternal or athletic groups, or school groups? No [facility] Are you now , , , , never or living with a partner? Never [facility] How often to you hav e a drink containing alcohol? Monthly or less [facility] Work Phone: How many standard dr inks containing alcohol do you have on a typical day? 1 or 2 [facility] Work Phone: How often do you hav e 6 or more drinks on 1 occasion? Never [facility] Work Phone: How hard is it for y ou to pay for the very basics like food, housing, medical care, and heating Somewhat hard [facility] Start: 09-14-2012 Adult Depression Screening Assessment 5 [facility] Do you feel stress - tense, restless, nervous, or anxious, or unable to sleep at night because your mind is troubled all the time - these days [OSQ] To some extent [facility] (I/We) worried almaz er (my/our) food would run out before (I/we) got money to buy more. Often true [facility] The food that (I/we) bought just didn't last, and (I/we) didn't have money to get more. Sometimes true [facility] Start: 02-22-2020 Gender identity Identifies as female gender (finding) [facility] Start: 02-22-2020 Sexual orientation Heterosexual (finding) [facility] Start: 06-30-2023 End: 06-30-2023 Tobacco smoking status NHIS Unknown if ever smoked [facility] Start: 07-06-2020 None [facility] Functional Status Date Assessment Result Facility 12-28-2014 Are you deaf, or do you have serious difficulty hearing No 12/28/2014 12:02 PM Fozia Casey MA No [facility] 12-28-2014 Are you blind, or do you have serious difficulty seeing, even when wearing glasses No 12/28/2014 12:02 PM Fozia Casey MA No [facility] 12-28-2014 Do you have serious difficulty walking or climbing stairs No 12/28/2014 12:02 PM EDT Fozia Dimas MA No [facility] 12-28-2014 Do you have difficul ty dressing or bathing No 12/28/2014 12:02 PM EDT Fozia Dimas MA No [facility] 12-28-2014 Because of a physica l, mental, or emotional condition, do you have difficulty doing errands alone such as visiting a physician's office or shopping No 12/28/2014 12:02 PM PEPITOT Fozia Dimas MA No [facility] Mental Status Date Assessment Result Facility 12-28-2014 Because of a physica l, mental, or emotional condition, do you have serious difficulty concentrating, remembering, or making decisions No 12/28/2014 12:02 PM EDT Fozia Dimas MA [facility] Clinical Notes 01-03-2022 to 06-18-2025 Arabella Shaffer APRN.CNM - 06/18/2025 2:41 PM EDTPArabella baca APRN.CNM - 06/17/2024 3:31 PM EDTTelephone Encounter - Mel Harvey RN - 06/12/2024 12:25 PM EDTPatient Instructions Note Date & Type Note Facility 06-18-2025 Note HNO ID: [id number] Author: ARABELLA SHAFFER APRN.CNM Service: ? Author Type: Clinical Psychiatrist Type: Progress Notes Filed: 06/18/2025 15:46 Note Text: Returned Goods Inspector offered: Patient declines. Jessica is a 25 year old who presents for an annual gynecologic exam with complaints, irregular cycles.. Tracking cycles- interested in trying for . Started new job at [employer]. Menstrual flow: Moderate Bleeding amount bothersome: No Bleeding between periods: Yes Contraception: None Contraception frequency: Never HPV vaccine: No HPV:negative Last pap smear: 2020 OB History Gravida1 Para1 Term1 Preterm0 AB0 Living1 SAB0 IAB0 Ectopic0 Multiple0 Live Births1 Manager Editorial History LMP: 06/14/2025, Having periods Age at Menarche: Age at First : Age at Menopause: Manager Editorial History Comments: Sexual Activity: Yes; Male Contraception: Not used PAST MEDICAL HISTORY Diagnosis Date Atypical squamous cells of undetermined significance (ASCUS) on Papanicolaou smear of cervix 01/19/2021 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 PMH - PAST MEDICAL HISTORY OF 06/21/10 normal color vision PAST SURGICAL HISTORY Procedure Laterality Date REMOVE TUMOR, HAND/FINGER 04/04/2016 removal on face and left arm, right side of the face REMOVE TUMOR, NECK/CHEST 08/13/2024 FAMILY HISTORY Problem Relation Age of Onset other (Other) Mother Von Willebrand disease, thrombocytopenia other (von willebrand) Mother other (thrombocytopenia) Mother GERD Father No Known Problems Maternal Grandmother other ([employer]) Maternal Grandfather Thyroid Paternal Grandmother had thyroid removed Diabetes Paternal Grandmother type 2 Thyroid Paternal Grandfather SOCIAL HISTORY Social History Tobacco Use Smoking status: Former Smokeless tobacco: Never Vaping Use Vaping status: current everyday user Substances: Nicotine, 2 1/2% [...] skin retraction. Allergies and current medication updated:Yes SENSITIVE EXAM: The sensitive examination was discussed with the Patient or Patient's Authorized Manager Of Engineering. As applicable, any other physician, advance practice provider, medical student, or other health professional student that will be observing or involved in the sensitive examination for educational or training purposes was discussed with the Patient or Authorized Manager Of Engineering. The Patient or Authorized Manager Of Engineering has agreed to proceed with the sensitive examination. (Sensitive examination includes inspection and/or palpation of the breasts, pelvis, prostate and anorectal regions). EXAM: BP 92/54 Ht 5' 4" (1.63m) Wt 127 lb (57.6kg) LMP 06/14/2025 BMI 21.79 kg/(m2). GENERAL: pleasant, female in no apparent distress HEENT: Normocephalic and atraumatic NECK: Supple and full range of motion DERMATOLOGY: Normal, without lesions, non-icteric, and non-hirsute BREAST: soft, non-tender, symmetric, no dominant mass, normal nipple-areolar complex, no lymphadenopathy, and no nipple discharge CHEST: Normal inspiratory effort ABDOMEN: soft, non-tender, and no masses PELVIC: external genitalia normal, normal Bartholin's glands, urethra, Polson's glands, no vulvar lesions, no cervical lesions, good vaginal support, physiologic discharge present, normal appearing perineal body and perianal region, small amount of blood present- started period today BIMANUAL: uterus normal size, shape and consistency, no adnexal masses, non-tender, and no cervical motion tenderness RECTOVAGINAL: deferred. NEURO: alert and oriented x3,exam grossly non-focal EXTREMITIES: normal ASSESSMENT/PLAN: 1) Health maintenance: Pap done with reflex HPV. Smoking cessation: Patient does not smoke. Quit vaping last month! 2) Contraception: none. Desires 3) STD screening: Declined STI check. 4) Start taking vitamin daily Follow up one year or sooner as needed Arabella Shaffer [facility]N.[facility] History of Presen t illness Narrative Returned Goods Inspector offered: Patient declines. Jessica is a 25 year old who presents for an annual gynecologic exam with complaints, irregular cycles.. Tracking cycles- interested in trying for . Started new job at [employer]. Menstrual flow: Moderate Bleeding amount bothersome: No Bleeding between periods: Yes Contraception: None Contraception frequency: Never HPV vaccine: No HPV:negative Last pap smear: 2020 OB History Gravida1 Para1 Term1 Preterm0 AB0 Living1 SAB0 IAB0 Ectopic0 Multiple0 Live Births1 Manager Editorial History LMP: 06/14/2025, Having periods Age at Menarche: Age at First : Age at Menopause: Manager Editorial History Comments: Sexual Activity: Yes; Male Contraception: Not used PAST MEDICAL HISTORY Diagnosis Date Atypical squamous cells of undetermined significance (ASCUS) on Papanicolaou smear of cervix 01/19/2021 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 PMH - PAST MEDICAL HISTORY OF 06/21/10 normal color vision PAST SURGICAL HISTORY Procedure Laterality Date REMOVE TUMOR, HAND/FINGER 04/04/2016 removal on face and left arm, right side of the face REMOVE TUMOR, NECK/CHEST 08/13/2024 FAMILY HISTORY Problem Relation Age of Onset other (Other) Mother Von Willebrand disease, thrombocytopenia other (von willebrand) Mother other (thrombocytopenia) Mother GERD Father No Known Problems Maternal Grandmother other ([employer]) Maternal Grandfather Thyroid Paternal Grandmother had thyroid removed Diabetes Paternal Grandmother type 2 Thyroid Paternal Grandfather SOCIAL HISTORY Social History Tobacco Use Smoking status: Former Smokeless tobacco: Never Vaping Use Vaping status: current everyday user Substances: Nicotine, 2 1/2% [...] skin retraction. Allergies and current medication updated:Yes SENSITIVE EXAM: The sensitive examination was discussed with the Patient or Patient's Authorized Manager Of Engineering. As applicable, any other physician, advance practice provider, medical student, or other health professional student that will be observing or involved in the sensitive examination for educational or training purposes was discussed with the Patient or Authorized Manager Of Engineering. The Patient or Authorized Manager Of Engineering has agreed to proceed with the sensitive examination. (Sensitive examination includes inspection and/or palpation of the breasts, pelvis, prostate and anorectal regions). EXAM: BP 92/54 Ht 5' 4" (1.63m) Wt 127 lb (57.6kg) LMP 06/14/2025 BMI 21.79 kg/(m^2). GENERAL: pleasant, female in no apparent distress HEENT: Normocephalic and atraumatic NECK: Supple and full range of motion DERMATOLOGY: Normal, without lesions, non-icteric, and non-hirsute BREAST: soft, non-tender, symmetric, no dominant mass, normal nipple-areolar complex, no lymphadenopathy, and no nipple discharge CHEST: Normal inspiratory effort ABDOMEN: soft, non-tender, and no masses PELVIC: external genitalia normal, normal Bartholin's glands, urethra, Polson's glands, no vulvar lesions, no cervical lesions, good vaginal support, physiologic discharge present, normal appearing perineal body and perianal region, small amount of blood present- started period today BIMANUAL: uterus normal size, shape and consistency, no adnexal masses, non-tender, and no cervical motion tenderness RECTOVAGINAL: deferred. NEURO: alert and oriented x3,exam grossly non-focal EXTREMITIES: normal ASSESSMENT/PLAN: 1) Health maintenance: Pap done with reflex HPV. Smoking cessation: Patient does not smoke. Quit vaping last month! 2) Contraception: none. Desires 3) STD screening: Declined STI check. 4) Start taking vitamin daily Follow up one year or sooner as needed Arabella Shaffer APRN.CNM documented in this encounter [facility] 06-17-2024 History of Presen t illness Narrative Returned Goods Inspector offered: Patient declines. Jessica is a 24 year old who presents for an annual gynecologic exam with complaints, irregular bleeding. Menses: cycles irregular since stopping OCP last November. Current cycles every other or every 2 months lasting 5-6 days. Cycles are light with one day of heavy flow. Periods not painful. Contraception: none HPV vaccine: No Last Pap: 04/09/2022 normal HPV: 01/23/2021 negative History of abnormal pap: no Last mammogram: never Sexually active: Yes History of STDS: None Pain with intercourse: No Postcoital bleeding: No Hot flashes: No Night sweats: No Vaginal dryness: No OB History T1 L1 SAB0 IAB0 Ectopic0 Multiple0 Live Births1 Manager Editorial History LMP: 06/14/2024, Having periods Age at Menarche: Age at First : Age at Menopause: Manager Editorial History Comments: Sexual Activity: Yes; Male Contraception: None PAST MEDICAL HISTORY 01/19/2021: Atypical squamous cells of undetermined significance (ASCUS) on Papanicolaou smear of cervix 2016: Benign tumor Comment: removed from left forearm and under right eye 06/21/10: PMH - PAST MEDICAL HISTORY OF Comment: normal color visionPAST SURGICAL HISTORY 04/04/2016: REMOVE TUMOR, HAND/FINGER Comment: removal on face and left arm, right side of the face FAMILY HISTORY Problem Relation Age of Onset other (Other) Mother Von Willebrand disease, thrombocytopenia other (von willebrand) Mother other (thrombocytopenia) Mother GERD Father No Known Problems Maternal Grandmother other ([employer]) Maternal Grandfather Thyroid Paternal Grandmother had thyroid removed Diabetes Paternal Grandmother type 2 Thyroid Paternal Grandfather SOCIAL HISTORY Social History Tobacco Use Smoking status: Former Smokeless tobacco: Never Vaping Use Vaping status: current everyday user Substances: Nicotine, 2 1/2% [...] overlying skin changes, redness or skin retraction. Reports still occasional lactating after 1 year of not Allergies and current medication updated:Yes EXAM: BP 100/60 Ht 5' 4.25" (1.63m) Wt 116 lb 12.8 oz (53.0kg) LMP 06/14/2024 BMI 19.89 kg/(m^2). GENERAL: pleasant, female in no apparent distress HEENT: Normocephalic and atraumatic NECK: Supple and full range of motion DERMATOLOGY: Normal, without lesions, non-icteric, and non-hirsute BREAST: soft, non-tender, symmetric, no dominant mass, normal nipple-areolar complex, no lymphadenopathy, no nipple discharge, and fibrocystic changes CHEST: Normal inspiratory effort ABDOMEN: soft, non-tender, and no masses PELVIC: external genitalia normal, normal Bartholin's glands, urethra, Polson's glands, no vulvar lesions, no cervical lesions, good vaginal support, physiologic discharge present, normal appearing perineal body and perianal region BIMANUAL: uterus normal size, shape and consistency, no adnexal masses, non-tender, and no cervical motion tenderness RECTOVAGINAL: deferred. NEURO: alert and oriented x3,exam grossly non-focal EXTREMITIES: normal ASSESSMENT/PLAN: 1) Health maintenance: Pap/HPV up to date. CBC, CMP, TSH, Prolactin labs ordered 2) Contraception: none. Stopped OCP due to mood changes. 3) STD screening: Declined STD check. 4) Follow up one year or sooner as needed Arabella Shaffer APRN.CARMELM documented in this encounter [facility] 06-12-2024 Telephone encounter Note Appt made with CP on 06/17/24 for annual exam and to discuss periods. Mel Harvey RN [facility] 06-12-2024 Miscellaneous Notes Appt made with CP on 06/17/24 for annual exam and to discuss periods. Mel Harvey RN documented in this encounter [facility] 10-18-2023 History of Presen t illness Narrative Radiology Service Progress Note PATIENT NAME: Ariela [...] RT Elvira(R) October 18, 2023 10:22 AM documented in this encounter [facility] 06-26-2023 History of Presen t illness Narrative Images from the original note were not included. This note was created using [employer] Protective Technologiesriter. Subjective Ariela Crane is a 23 year [...] No Known Problems Maternal Grandmother other (Agent Mellette) Maternal Grandfather Thyroid Paternal Grandmother had thyroid [...] Genny Barrios PA-C documented in this encounter [facility] 03-29-2023 Instructions Arabella Shaffer APRN.[facility] - 03/29/2023 8:42 AM EDT Here are some links for wonderful Providers here in the community and surrounding areas. Do not hesitate to contact their offices, many are offering virtual visits during this time. 4-256-8-YBPX3KJVS - [facility] Mental Health Hotline If you are in suicidal crisis, please call or text 7-686-295-TALK ( ) or visit the National Suicide Prevention Lifeline website. mchb.[facility].gov [facility] Behavior[facility] Psychology, Psychiatry, Counseling Connect with therapist/ can do virtual visits [phone] Referral to the [facility] Women's Behavioral [facility] To schedule an appointment, please call the Center for Behavioral Health Appointment Line: [phone] option 1 [facility] - [place], [place] [address] [place] [address] [id number] [place] [address] [facility] [address] [place], [place] [address] [facility] [address] [place], [place] [id number] Angel Hudson MD [address] [place], [place] [id number] [facility] [address] [place] [address], [address] [place] [address] [facility] [address] [place] [address] [facility] [place] / [place] [phone]/ [phone] In[address]if [address] [facility] [phone] Av of Counseling and Mediation [place] / [place] [phone] [facility] [address] [place] [address]/ [place] [phone] Chaitanya Otoole, AGUILA, CLC [facility] Workshops, telehealth and at home visits. [phone] [facility] [place] 20 locations [place], [place], [place], [place], [place], [place], [place], [facility], [place], [place], [place], [place], [place], [place], [facility], [place], [place] ,[facility], [place], [place],[facility], [facility], [place], [facility], [facility], [place] www.trios health.[facility] [phone] Psychotherapy resources outside of [facility] are listed below [facility] Web: https://www.Turpitude/ Support International Online Provider Directory https://Hex Labs, Inc./ [facility] https://Trendmeon/ Partners for Behavioral Health and Wellness Web: https://QFO Labs/ Center for Effective Living Web: https://www.effectiveXP Investimentosliving.USConnect / LifeStance Web: https://Spectra Analysis Instruments.USConnect/location/ [facility]/[place]/ [facility] Web: https://www.FetchBackhealthinc.o / [facility] Web: https://Foldax.org/ Recovery Resources Mental health and substance abuse help Web: https://www.recres.org & RESOURCES Support International Direct peer support and connection to professional resources Non-Emergency Helpline Phone: / Text: [phone] Web: https://www..net/ Online Provider Directory: https://Hex Labs, Inc./ Online Support Meetings: https://www..net/get-h elp/oea-jbxzhx-gzdpyer-meetings/ EDIS Baby and Back Facer Services Web: https://MyMiniLife/ ShoeSize.Me Expert information on medication use during and Text: [phone] Web: https://Augmentix/ NATIONAL REGISTRY FOR PSYCHIATRIC MEDICATIONS Currently studying the safety of antidepressants, ADHD medications and atypical antipsychotics taken during TO PARTICIPATE CALL TOLL-FREE: Web: https://womensmentalhealth.org/r esearch/pregnancyregistry/ Support Groups: [facility]- Follow on facebook Baby Bistro support group led by [facility] department [facility] - Support Group [facility].org The POEM support group [phone] Www.poPLYmediaonline.org Follow on facebook - ELIZABETH iqbal Online support meetings PSI https://www..net/get-h elp/vof-wfavhi-pwmnttb-meetings/ [facility] mommy and me virtual support group 11:30-1pm Support for mothers and new babies and toddlers Milaca childbirth education: Childbirth @cc.org or call [phone] CRISIS: CRISIS HOTLINE [phone], 911 or go to the nearest . [facility] [phone] / [facility] [phone] https://www.[facility].org Crisis text line text the word "HOME" to [address] [facility] [address] [facility] [address] www.PerBlue Angely Cramer clinical counseling [address] [address] www.TrunityriLexy.USConnect [phone] Holding space psychotherapy Emma Downing YARDAGE TUFTING MACHINE OPERATOR CORPORATE SPECIALIST-S [address] [facility] www.Alloka [phone]/ True [phone] They all offer virtual. All work with trauma Support groups Online support meetings PSI https://www..net/get-h elp/gfo-epuuqx-bnprwfk-meetings/ Here are the support groups they offer: Support of parents of 1 to 4 years old children POEM ( Outreach and Encouragement for Moms) offers free support for mothers experiencing depression, anxiety, and other mood and anxiety disorders. Masks are recommended but not required. No pre-registration required. Babies in arms welcome. meetings now take place on the and Saturday of each month Location: [facility] [address] [place] [address] Room 122 (library room) 7-8:00 p.m. When you enter the mandaeism parking lot off of [address] the entrance door closest to our meeting room is on the front of the building toward the right. For those who are more comfortable with a virtual platform, PO offers online support group options several days of the week. To register for an online group or to find out more about POEM, website at: https://aowyo.org/get-help/[facility] islandftwbl-vyafyv-hrejzu/poem-service s/ offer a confidential helpline: private Facebook group is called POCASIE - Nesbitt Arturo Here are the groups they offer: Traumatic childbirth resources: Http://pattch.org/ https://www.VoltDBravindraSwifto.USConnect/ documented in this encounter [facility] 03-29-2023 History of Presen t illness Narrative Returned Goods Inspector offered: Patient declinesMegan Lopez is a 23 year old who presents [...] L1 SAB0 IAB0 Ectopic0 Multiple0 Live Births1 Manager Editorial History LMP: 03/02/2023, Having periods Age at Menarche: Age at First : Age at Menopause: Manager Editorial History Comments: Sexual Activity: Yes; Male Contraception: [...] No Known Problems Maternal Grandmother other (Agent Mellette) Maternal Grandfather Thyroid Paternal Grandmother had thyroid [...] medication updated:Yes EXAM: BP 92/56 Ht 5' 4.567" (1.64m) Wt 119 lb (54.0kg) LMP 03/02/2023 [...] external genitalia normal, normal Bartholin's glands, urethra, Polson's glands, no vulvar lesions, no cervical lesions, [...] with patient including to report any s/s "ACHES". Briefly discussed Mirena but she likes to have period so she knows she is not . Consult to Women's behavioral health- counseling and/or medication? 3) STD screening: Declined STD check. 4) Follow up one year or sooner as needed BACT/YEAST- collected and sent due to increased vaginal discharge Arabella Shaffer APRN.CNM documented in this encounter [facility] 11-16-2022 Miscellaneous Notes Last annual with CP 03/30/22. Needs refill today. Requested Prescriptions Pending Prescriptions Disp Refills Drospirenone-Ethinyl Estradiol 3-0.03 mg per tablet [Pharmacy Med Name: DROSPIRENONE-EE 3-0.03 MG TAB] 28 tablet 5 Sig: TAKE 1 TABLET BY MOUTH EVERY DAY RX INSTRUCTIONS: Patient aware RX will be sent to pharmacy. No need to notify patient. Yulia Morris RN documented in this encounter [facility] 09-23-2022 Instructions Melvin Marie APRN.CNP - 09/23/2022 10:03 AM EST How to [...] concerning to you. documented in this encounter [facility] 09-23-2022 History of Presen t illness Narrative Subjective HPI Nontoxic-appearing female presents to urgent care with chief complaint of upper respiratory tract like infection. Duration of symptoms 4 days. Associated symptoms sore throat, nasal congestion, nasal discharge and nonproductive cough. Patient denies the use of any wmgv-dpv-qmkxsac medications or home remedies for symptom management. [...] No Known Problems Maternal Grandmother other (Agent Mellette) Maternal Grandfather Thyroid Paternal Grandmother had thyroid [...] of care. This note was generated using SolarNOW software. It may contain errors in wording, punctuation, or spelling. Melvin Marie APRN.TRUST MANAGER ASSISTANT documented in this encounter [facility] 06-06-2022 Miscellaneous Notes [facility]ill request received from [facility]. Patient had yearly exam 03/30/2022 documented in this encounter [facility] 03-30-2022 History of Presen t illness Narrative [...] L1 SAB0 IAB0 Ectopic0 Multiple0 Live Births1 Manager Editorial History LMP: 03/16/2022, Having periods Age at Menarche: Age at First : Age at Menopause: Manager Editorial History Comments: Sexual Activity: Yes; Male Contraception: [...] No Known Problems Maternal Grandmother other (Agent Mellette) Maternal Grandfather Thyroid Paternal Grandmother had thyroid [...] external genitalia normal, normal Bartholin's glands, urethra, Polson's glands, no vulvar lesions, no cervical lesions, [...] Arabella Shaffer APRN.CNM documented in this encounter [facility] 01-03-2022 History of Presen t illness Narrative [...] No history of dysuria, frequency or incontinence 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 Encounter [...] Arabella Shaffer APRN.CNM documented in this encounter [facility] Evaluation note Diagnosis Encounter for initial prescription of contraceptive pills- Primary General counseling for prescription of oral contraceptives [facility] Diagnosis Screening for cervical cancer- Primary Screening for malignant neoplasm of the cervix Encounter for screening for human papillomavirus (HPV) Special screening examination for human papillomavirus (HPV) Vaginal discharge Leukorrhea, not specified as infective documented [facility] Diagnosis Viral illness- Primary Unspecified viral infection, in conditions classified elsewhere and of unspecified site documented [facility] this encounter [facility]* Diagnosis Encounter for gynecological examination (general) (routine) without abnormal findings- Primary Anxiety Anxiety state, unspecified Depression, unspecified depression type Vaginal discharge Leukorrhea, not specified as infective documented [facility] this encounter [facility]* Diagnosis Pain, dental- Primary Unspecified disorder of the teeth and supporting structures documented in this encounter [facility] noteNo assessment information availableWKindred Hospital [facility] Work Phone: Evaluation note* Diagnosis Encounter for gynecological examination (general) (routine) without abnormal findings- Primary Abnormal weight loss Loss of weight Irregular periods/menstrual cycles Irregular menstrual cycle [facility] Diagnosis Pain Generalized pain documented in this encounter [facility]* Diagnosis Encounter for gynecological examination (general) (routine) without abnormal findings- Primary Screening for cervical cancer Screening for malignant neoplasm of the cervix Irregular periods/menstrual cycles Irregular menstrual cycle documented in this encounter [facility] Additional Instructions Take and finish your antibiotics. May use ibuprofen up to 400 mg every 6 hours. Take Tynan as needed. Follow-up with your dentist as scheduled on Saturday for reevaluation and definitive treatment.[facility] Work Phone: Reason for referral (narrative)* Diagnostic Procedure Only (Urgent) - Closed Specialty Diagnoses / Procedures Referred By Contac t Referred To Contact XR IMAGING Diagnoses Pain Procedures XR TOE AP/LAT/OBL LEFT RADEX TOE MINIMUM 2 VIEWS Katelin Franklin APRN.TRUST MANAGER ASSISTANT [address] [place] [address] [place] [address] Referral ID Status Reason Start Date Expiration Date V isits Requested Visits Authorized [id number] Closed Auto-Generate d Referral 10/18/2023 11/16/2024 1 1 [facility] for visit Narrative* Diagnostic Procedure Only (Urgent) - Closed Specialty Diagnoses / Procedures Referred By Contchiquis t Referred To Contact XR IMAGING Diagnoses Pain Procedures XR TOE AP/LAT/OBL LEFT RADEX TOE MINIMUM 2 VIEWS Katelin Franklin APRN.TRUST MANAGER ASSISTANT [address] [place] [address] [place] [address] Referral ID Status Reason Start Date Expiration Date V isits Requested Visits Authorized [id number] Closed Auto-Generate d Referral 10/18/2023 11/16/2024 1 1 [facility] Summary Purpose Family History No Family History Records FoundNo Family History Records FoundNo Family History Records Found Advance Directives No Advanced Directives Records Found Advance Directive Response Recorded Date/ Time Advance Directives No November 2:28pm Living Will No June 30, 2023 10:38am Power of Pump Servicer Helper No June 10:38am Advance Directive Response Recorded Date/ Time Advance Directives No November 1:28pm Living Will No June 30, 2023 9:38am Power of Pump Servicer Helper No June 9:38am Health Concerns Infection Onset Date Last Indicated Resolved Time COVID-19 Rule-Out 09/23/2022 09/23/2022 Chief Complaint and Reason for Visit Chief Complaint DENTAL Chief Complaint Displaced fracture o f second metatarsal bone, left Additional Source Comments INFORMATION SOURCE (unrecogn ized section and content) DATE CREATED AUTHOR 01/27/2021 [facility] DATE CREATED AUTHOR AUTHOR'S ORGANIZ ATION 11/14/2023 [facility] DATE CREATED AUTHOR AUTHOR'S ORGANIZ ATION 06/29/2025 [facility] Source Comments (unrecognize d section and content) In the event this informatio n is protected by the Federal Confidentiality of Alcohol and Drug Abuse Patient Records regulations: The Federal rules restrict any use of the information to criminally investigate or prosecute any alcohol or drug abuse patient.[facility] Center[facility] the event this information is protected by the Federal Confidentiality of Alcohol and Drug Abuse Patient Records regulations: The Federal rules restrict any use of the information to criminally investigate or prosecute any alcohol or drug abuse patient.[facility] CenterIn the event this information is protected by the Federal Confidentiality of Alcohol and Drug Abuse Patient Records regulations: The Federal rules restrict any use of the information to criminally investigate or prosecute any alcohol or drug abuse patient.[facility] CenterIn the event this information is protected by the Federal Confidentiality of Alcohol and Drug Abuse Patient Records regulations: The Federal rules restrict any use of the information to criminally investigate or prosecute any alcohol or drug abuse patient.[facility] CenterIn the event this information is protected by the Federal Confidentiality of Alcohol and Drug Abuse Patient Records regulations: The Federal rules restrict any use of the information to criminally investigate or prosecute any alcohol or drug abuse patient.[facility] CenterIn the event this information is protected by the Federal Confidentiality of Alcohol and Drug Abuse Patient Records regulations: The Federal rules restrict any use of the information to criminally investigate or prosecute any alcohol or drug abuse patient.[facility] CenterIn the event this information is protected by the Federal Confidentiality of Alcohol and Drug Abuse Patient Records regulations: The Federal rules restrict any use of the information to criminally investigate or prosecute any alcohol or drug abuse patient.[facility] CenterIn the event this information is protected by the Federal Confidentiality of Alcohol and Drug Abuse Patient Records regulations: The Federal rules restrict any use of the information to criminally investigate or prosecute any alcohol or drug abuse patient.[facility] CenterIn the event this information is protected by the Federal Confidentiality of Alcohol and Drug Abuse Patient Records regulations: The Federal rules restrict any use of the information to criminally investigate or prosecute any alcohol or drug abuse patient.[facility] CenterIn the event this information is protected by the Federal Confidentiality of Alcohol and Drug Abuse Patient Records regulations: The Federal rules restrict any use of the information to criminally investigate or prosecute any alcohol or drug abuse patient.[facility] CenterIn the event this information is protected by the Federal Confidentiality of Alcohol and Drug Abuse Patient Records regulations: The Federal rules restrict any use of the information to criminally investigate or prosecute any alcohol or drug abuse patient.[facility] CenterIn the event this information is protected by the Federal Confidentiality of Alcohol and Drug Abuse Patient Records regulations: The Federal rules restrict any use of the information to criminally investigate or prosecute any alcohol or drug abuse patient.[facility] CenterIn the event this information is protected by the Federal Confidentiality of Alcohol and Drug Abuse Patient Records regulations: The Federal rules restrict any use of the information to criminally investigate or prosecute any alcohol or drug abuse patient.[facility] Reason for Visit (unrecogniz ed section and content) Reason Comments Contraception Reason Comments Well Woman Reason Comments Refill Request Reason Comments Nasal Congestion drainage,cough and s ore throat x 4 days Reason Comments Yearly Exam Reason Comments Dental Problem 2 teeth infection x3 days Care Teams (unrecognized sec tion and content) Team Status: Active Member Role Status Dates Dr. Sincere Lugo MD Family Provider Active Ervin Clarke NP, DRINK WAITER-C Primary Care Provider Active Team Status: Inactive Member Role Status Dates Ervin Clarke NP, ALLYSON-C Primary Care Provider Active Dr. Andreas Bobo DO Emergency Provider Active Team Status: Inactive Member Role Status Dates Ervin Clarke NP, DRINK WAITER-C Primary Care Provider Active TORIE Haddad-Rudi Attending Provider, Referring Pr ovidjarred Active Goals (unrecognized section and content) Goals may be documented in a n alternate sectionGoals may be documented in an alternate section FOR RECORDS PERTAINING TO PATIENTS WHO ARE [...] BE BASED ON THE PRIMARY CLINICAL RECORDS. [employer] [facility]. provides no warranty or guarantee of the accuracy or completeness of information in this document.
== END 2025-08-29 06:08 | disposition home or self-care (01) ==
PROVIDERS: Emergency Provider Emergency Medicine; Visit Provider Emergency Medicine
DX: L05.01 Pilonidal cyst with abscess (principal); Z87.891 Personal history of nicotine dependence
CPT/HCPCS: 10081; 10080; 99283